=== PATIENT | female | born 1970 | race African-American/Black ===

== ENCOUNTER → 2021-03-29 14:56 | Outpatient (BNVA) | payer OTHER, SELFPAY | PROVIDERS: PCP Internal Medicine; Visit Provider Nurse Practitioner Family | DX: M17.0 Bilateral primary osteoarthritis of knee (principal) | CPT/HCPCS: 99202 ==

== ENCOUNTER 2021-04-20 12:09 | Outpatient (REF) | payer OTHER, SELFPAY ==
--- NOTE | ~2021-04-20 | XR_ITS ---
EXAMINATION: XR KNEE, BILATERAL XR KNEE, RIGHT XR KNEE, LEFT CLINICAL INFORMATION: Pain COMPARISON: None TECHNIQUE: AP standing view of both knees. Lateral and sunrise view of both knees. FINDINGS: Right knee: No fracture or subluxation. Moderate medial compartment joint space narrowing. Remaining compartments are maintained. Small to moderate tricompartmental marginal osteophytes. No joint effusion. The soft tissues are unremarkable. Left knee: No fracture or subluxation. Moderate to severe medial compartment joint space narrowing. Remaining joint spaces are maintained. Mild to moderate tricompartmental marginal osteophytes. No joint effusion. The soft tissues are unremarkable. XR/XR knee standing BI IMPRESSION: Tricompartmental degenerative changes of both knees, greatest at the medial compartments with significant joint space narrowing.
--- NOTE | ~2021-04-20 | XR_ITS ---
EXAMINATION: XR KNEE, BILATERAL XR KNEE, RIGHT XR KNEE, LEFT CLINICAL INFORMATION: Pain COMPARISON: None TECHNIQUE: AP standing view of both knees. Lateral and sunrise view of both knees. FINDINGS: Right knee: No fracture or subluxation. Moderate medial compartment joint space narrowing. Remaining compartments are maintained. Small to moderate tricompartmental marginal osteophytes. No joint effusion. The soft tissues are unremarkable. Left knee: No fracture or subluxation. Moderate to severe medial compartment joint space narrowing. Remaining joint spaces are maintained. Mild to moderate tricompartmental marginal osteophytes. No joint effusion. The soft tissues are unremarkable. XR/XR knee LT 2V IMPRESSION: Tricompartmental degenerative changes of both knees, greatest at the medial compartments with significant joint space narrowing.
--- NOTE | ~2021-04-20 | XR_ITS ---
EXAMINATION: XR KNEE, BILATERAL XR KNEE, RIGHT XR KNEE, LEFT CLINICAL INFORMATION: Pain COMPARISON: None TECHNIQUE: AP standing view of both knees. Lateral and sunrise view of both knees. FINDINGS: Right knee: No fracture or subluxation. Moderate medial compartment joint space narrowing. Remaining compartments are maintained. Small to moderate tricompartmental marginal osteophytes. No joint effusion. The soft tissues are unremarkable. Left knee: No fracture or subluxation. Moderate to severe medial compartment joint space narrowing. Remaining joint spaces are maintained. Mild to moderate tricompartmental marginal osteophytes. No joint effusion. The soft tissues are unremarkable. XR/XR knee RT 2V IMPRESSION: Tricompartmental degenerative changes of both knees, greatest at the medial compartments with significant joint space narrowing.
== END 2021-04-20 12:10 | disposition home or self-care (01) ==
LOC: HO.HOSX 12:09
PROVIDERS: Visit Provider Orthopaedic Surgery
DX: M17.0 Bilateral primary osteoarthritis of knee (principal); M54.16 Radiculopathy, lumbar region
CPT/HCPCS: 20610; 73560; 73565; 99202; J1100

== ENCOUNTER 2021-06-05 14:00 | Outpatient (RCR) | payer OTHER, SELFPAY ==
--- NOTE | 2021-04-24 17:11 | MHC.PT.EP ---
[facility] [place] Office [place] Office [place] Office [address] Kimberly Lowery [address] [phone] F: [phone] F: [phone] F: [phone] F: [phone] Physical Therapy Plan of Care Date of Evaluation: Date of Surgery: NA Diagnosis: B KNEE OA LUMBAR RADICULOPATHY Assessment: Pt IS 50 YO F REFERRED TO PT FROM DR DAVIES WITH B KNEE OA AND LUMBAR RADICULOPATHY. Pt REPORTS CHRONIC KNEE PAIN. RELIEF FROM CORTISONE INJECTIONS. HAS HAD PT IN PAST WITH SOME RELIEF BUT POOR CARRYOVER UPON DC. PRESENTS WITH SIGNIFICANTLY WEAK LES WITH POOR GT PATTERN (NO AD BUT HAS CANE AT HOME) AND C/O PAIN IN R KNEE AND L LE. 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 SHOULD BENEFIT FROM PT TO ADDRESS THESE ISSUES Frequency and Duration: The patient will be seen 2X/WK X 6 WKS Short Term Goals: 1. INCREASED AWARENESS LE CARE 2. I HEP WITH DC EX PLAN 3. 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 DECREASED KNEE/LE PAIN AT LEAST 50% WITH ADLS 2. INCREASED KNEE FLEXION AT LEAST 10 DEGREES B 3. INCREASED LE STRENGTH 1 MM GRADE T/O Treatment Plan: Modalities to reduce pain, spasms and effusion. Manual therapy to restore motion and function. Therapeutic exercise to improve strength and flexibility. Neuromuscular re-education for posture and balance. Therapeutic activities to return to functional activities of daily living. Electronically signed by: ERICA COLLIER PT Please sign and return to therapist. Thank you for your referral.
--- NOTE | 2021-07-10 14:58 | MHC.PT.DC ---
[facility] [place] Office [place] Office [place] Office [address] Kimberly Lowery [address] [phone] F: [phone] F: [phone] F: [phone] F: [phone] Physical Therapy Discharge Report Diagnosis: B KNEE OA LUMBAR RADICULOPATHY Date of Surgery: NA Date of Evaluation: 04/24/21 Date of Discharge: 07/10/21 Treatments to Date: 7 Cancellations to Date: 5 No Shows to Date: 2 Discharge Status: Independent with HEP Patient Elected to Stop Visit Non-compliance Discharge Summary: Pt LAST SEEN ON 06/05/21. PER ASSESSMENT THAT DAY CHALLENGED WITH STANDING THEREX, FATIGUE NOTED' Pt HAS HOME PROGRAM WHICH SHE REPORTS HELPS WHEN SHE DOES THEM BUT ADMITS NOT DOING EXS/STRETCHES REGULARLY. Pt HAS HAD SPORADIC ATTENDANCE TO PT SESSIONS. CANCELLED A VISIT THEN NO SHOWED HER LAST 2 SCHEDULED VISITS. WILL DC AT THIS TIME Electronically signed by: ERICA COLLIER PT Please sign and return to therapist. Thank you for your referral.
== END 2021-07-10 14:58 | disposition home or self-care (01) ==
LOC: HO.PT 14:00
PROVIDERS: PCP Nurse Practitioner Family; Visit Provider Orthopaedic Surgery
DX: M17.0 Bilateral primary osteoarthritis of knee (principal); M54.16 Radiculopathy, lumbar region
CPT/HCPCS: 97110; 97140; 97162; 97530; 97535

== ENCOUNTER → 2021-07-03 13:21 | Outpatient (BNVA) | payer OTHER, SELFPAY | PROVIDERS: PCP Nurse Practitioner Family; Visit Provider Physician Assistant | DX: M17.0 Bilateral primary osteoarthritis of knee (principal) | CPT/HCPCS: 99212 ==

== ENCOUNTER → 2023-01-04 12:44 | Outpatient (BNVA) | payer OTHER, SELFPAY | PROVIDERS: PCP Nurse Practitioner Family; Visit Provider Orthopaedic Surgery | DX: Z13.89 Encounter for screening for other disorder (principal) | CPT/HCPCS: J1100 ==

== ENCOUNTER 2023-12-18 16:12 | Outpatient (REF) | payer OTHER, SELFPAY ==
[2023-12-18 16:42] LABS: MANUAL DIFF FLAG NO
[2023-12-18 17:29] LABS: Basophils Absolute Auto 0.1 X10*3/uL (0.0-0.2); Basophils Percent Auto 0.4 % (0-2); Eosinophils Absolute Auto 0.1 X10*3/uL (0.0-0.4); Eosinophils Percent Auto 1.1 % (0-4); Hematocrit 40.4 % (37.0-47.0); Hemoglobin 13.1 g/dl (12.0-16.0); Imm Gran Abs Auto 0.06 X10*3/uL (0.00-0.03); Imm Gran Pct Auto 0.5 % (0.0-0.4); Lymphocytes Absolute Auto 2.7 X10*3/uL (1.2-4.9); Lymphocytes Percent Auto 22.1 % (20-40); Mean Corpuscular HGB Conc 32.4 g/dl (31.0-35.0); Mean Corpuscular Hemoglobin 24.9 pg (27.0-33.0); Mean Corpuscular Volume 76.8 fL (80.0-98.0); Mean Platelet Volume 10.9 fL (9.4-12.3); Monocytes Absolute Auto 0.4 X10*3/uL (0.1-1.2); Monocytes Percent Auto 3.3 % (2-11); Neutrophils Absolute Auto 8.7 x10*3/uL (2.0-8.3); Neutrophils Percent Auto 72.6 % (45-73); Platelet Count 316 X10*3/uL (160-400); Red Blood Count 5.26 X10*6/uL (4.20-5.50)
[2023-12-18 17:36] LABS: Anion Gap 11 (12-20); Blood Urea Nitrogen 10 mg/dL (9-16); Carbon Dioxide 26 mmol/L (22-29); Chloride 105 mmol/L (96-108); Estimated Glomerular Filt Rate 58; Glucose Random 149 mg/dL (60-115); Potassium 3.4 mmol/L (3.3-5.1); Sodium 139 mmol/L (135-145)
== END 2023-12-18 16:13 | disposition home or self-care (01) ==
LOC: HO.LAB 16:12
PROVIDERS: PCP Registered Nurse; Visit Provider Internal Medicine Hypertension Specialist
DX: E11.9 Type 2 diabetes mellitus without complications (principal)
CPT/HCPCS: 36415; 80048; 85025

== ENCOUNTER 2023-12-26 11:26 | Outpatient (AMB) | payer OTHER, SELFPAY ==
--- NOTE | 2023-12-26 11:47 | HO.NEPHOV ---
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 She is trying to loose weight. She is on Trulicity. Her BP is well controlled on current medication regimen. She does not have any chest pain, SOB, nausea, vomiting, hematuria, edema or orthostatic symptoms. She does not take excess NSAID's and tries to keep up with good hydration. She denied any retinopathy or proteinuria. She had no new active complaints at the time of this office visit. [facility] Medical History (Updated 12/26/23 @ 11:57 by Tamika Corea MA) Hypertension Surgical History (Updated 12/26/23 @ 11:57 by Tamika Corea MA) History of cholecystectomy Family History (Updated 12/26/23 @ 11:56 by Tamika Corea MA) Maternal Grandmother Diabetes Social History (Updated 12/26/23 @ 11:55 by Tamika Corea MA) Alcohol intake: current Patient Tobacco Use Status: Former Tobacco user Review of Systems Const All systems reviewed & are unremarkable except as noted in HPI and below Physical Exam Vital Signs: Last Vital Signs Pulse 50 12/26/23 11:49 BP 134/90 H 12/26/23 11:49 Pulse Ox 97 12/26/23 11:49 Oxygen Delivery Method Room Air 12/26/23 11:49 BMI result Body Mass Index 48.0 Const General: comfortable and no acute distress Orientation/consciousness: patient oriented x3 HEENT Head: Yes normocephalic Mouth: Normal oral and palatal mucosa present Eyes EOM: EOMs intact bilaterally Neck Neck: Yes supple Resp Auscultation: clear to auscultation bilaterally Cardio Jugular venous distension: no JVD Rate: regular rate GI Palpation (GI): Soft to palpation Auscultation: normal bowel sounds General: Yes no CVA tenderness Back/Spine/Pelvis Back: no CVA tenderness Skin General skin exam: no rashes or lesions noted Neuro General: patient oriented x3 and moves all extremities Extrem General: Yes no pedal edema Results Reviewed Nephrology Results: Hgb 13.1 g/dl (12.0-16.0) 12/18/23 WBC 12.0 X10*3/uL (4.8-10.8) H 12/18/23 Plt Count 316 X10*3/uL (160-400) 12/18/23 Sodium 139 mmol/L (135-145) 12/18/23 Potassium 3.4 mmol/L (3.3-5.1) 12/18/23 Chloride 105 mmol/L (96-108) 12/18/23 Carbon Dioxide 26 mmol/L (22-29) 12/18/23 BUN 10 mg/dL (9-16) 12/18/23 Creatinine 0.99 mg/dL (0.5-1.4) 12/18/23 Calcium 10.0 mg/dL (8.4-10.2) 12/18/23 Assessment & Plan Assessment & Plan (1) Hypertension: Code(s): I10 - Essential (primary) hypertension Category: Medical Qualifiers: Hypertension type: primary hypertension Qualified Code(s): I10 - Essential (primary) hypertension Plan Blood pressure needs to be kept at goal No H/O LVH/retinopathy/proteinuria No H/O renal dysfunction; No orthostasis Needs continued life style modification/weight loss Likely a candidate for low dose ACEI Needs to maintain good hydration/minimal NSAID's No medication changes today; F/U labs ordered Answered all questions; F/U given Orders: Orders Creatinine 6 Months I10 - Essential (primary) hypertension Blood Urea Nitrogen 6 Months I10 - Essential (primary) hypertension Protein Creatinine Ratio, Ur 6 Months I10 - Essential (primary) hypertension Electrolytes 6 Months I10 - Essential (primary) hypertension Coding Level of Care Code Est Pt Level 4 (12890) Diagnoses Primary hypertension I10 Hypertension type: primary hypertension
[2023-12-26 11:49] VITALS: BP 134/90; PULSE 50; O2SAT 97; BMI 48.0
== END 2023-12-26 12:07 | disposition home or self-care (01) ==
PROVIDERS: PCP Nurse Practitioner Family; Visit Provider Internal Medicine Nephrology
DX: I10 Essential (primary) hypertension (principal)
CPT/HCPCS: 99214

== ENCOUNTER → 2023-12-26 11:26 | Outpatient (BNVA) | payer OTHER, SELFPAY | PROVIDERS: PCP Nurse Practitioner Family; Visit Provider Internal Medicine Nephrology | DX: I10 Essential (primary) hypertension (principal); Z79.899 Other long term (current) drug therapy | CPT/HCPCS: 99212 ==

== ENCOUNTER 2024-01-27 12:52 | Outpatient (REF) | payer OTHER, SELFPAY | END 2024-01-27 12:53 | disposition home or self-care (01) | LOC: HO.HOSX 12:52 | PROVIDERS: Visit Provider Physician Assistant | DX: M25.512 Pain in left shoulder (principal) | CPT/HCPCS: 73030; 99212 ==

== ENCOUNTER 2024-01-27 13:23 | Outpatient (AMB) | payer OTHER, SELFPAY ==
--- NOTE | 2024-01-27 13:47 | MHC.OFFVIS ---
Vital Signs 01/27/24 13:54 Height 5 ft 3 in Weight 271 lb BMI 48.0 Intake Visit Reasons: New problem - Left shoulder pain, no inj Intake Note: Delores a 53 year old female who presents today for an evaluation of left shoulder pain. Patient reports her pain has been present for about a month. Her pain started in the posterior aspect of shoulder and radiates down her arm to her wrist. States soreness in her bicep. Unable to sleep on her left side. No numbness or tingling. Denies injury. No previous tx. Finds very little relief with lidocaine patches. Allergies seafood Allergy (Verified 01/27/24 13:56) Anaphylaxis tree nut Allergy (Verified 01/27/24 13:56) Anaphylaxis banana Adverse Reaction (Verified 01/27/24 13:56) Vomiting Seasonal Allergies Adverse Reaction (Verified 01/27/24 13:56) Sneezing sergio stings Allergy (Uncoded 01/27/24 13:56) Swelling Medication List - Last Reconciled 01/27/24 by Bonilla Belle PA-C cetirizine 10 mg PO DAILY clotrimazole 1% 1 appl topical QAM AND QHS dulaglutide (Trulicity) 0.75 mg subcut QWEEK lidocaine 5% 1 patch topical DAILY PRN lorazepam 1 mg PO DAILY PRN montelukast 10 mg PO DAILY pantoprazole 40 mg PO DAILY spironolactone 25 mg PO DAILY HPI HPI New problem - Left shoulder pain, no inj: Details: 53-year-old female presents to the office today for left shoulder pain. She denies injury. She states she has been having pain for approximately the 1 month. She states she had some tension along the trapezium muscle, the pain goes down her arm. 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 Tenderness over the bicipital groove and along deltoid region of the shoulder. FF to 175, ER to 90, IR to S1. 5/5 RTC strength, negative moreau, cross body abduction. NVI. Results Reviewed Results Reviewed: X-rays of the left shoulder obtained in the office today show well-preserved glenohumeral joint with osteophyte formation along the acromion Assessment & Plan Assessment & Plan (1) Left shoulder tendonitis: Code(s): M77.8 - Other enthesopathies, not elsewhere classified Category: Medical Plan: Discussed options today which include physical therapy, steroid injection and anti-inflammatories. She would like to hold off on cortisone injections at this time. A referral for physical therapy was placed range of motion, rotator cuff and periscapular stabilization. Celebrex prescription was sent to the pharmacy to take twice a day for 2 weeks and occasionally thereafter. She will see me back if symptoms persist or worsen to discuss cortisone injection otherwise follow-up as needed. Orders: Orders PT Evaluation and Treatment Today M77.8 - Other enthesopathies, not elsewhere classified XR shoulder LT min 2V Today M25.512 - Pain in left shoulder Medications: New celecoxib (Celebrex) 200 mg PO BID 60 caps 3RF 30 days Coding Level of Care Code Est Pt Level 3 (24783) Complex EM visit Add On G2211 Diagnoses Left shoulder tendonitis M77.8
[2024-01-27 13:54] VITALS: BMI 48.0
== END 2024-01-27 14:19 | disposition home or self-care (01) ==
PROVIDERS: PCP Nurse Practitioner Family; Visit Provider Physician Assistant
DX: M77.8 Other enthesopathies, not elsewhere classified (principal)
CPT/HCPCS: 99213; G2211

== ENCOUNTER 2024-02-24 11:08 | Outpatient (AMB) | payer OTHER, SELFPAY ==
--- NOTE | 2024-02-24 11:33 | A.OFFVIS_ITS ---
Vital Signs 02/24/24 11:55 Height 5 ft 3 in Weight 271 lb BMI 48.0 Intake Visit Reasons: OV-Tejas knee injections, last cortisone inj 04/20/21 Intake Note: Delores is a 50 year old female who presents today for a follow up of her bilateral knee OA. Last injection 04/20/21. Patient reports last injection did not provide her with relief. She would like to repeat injections today. States her pain is located at the anterior and medial aspect of knees. Finds some relief with topical patches. Allergies seafood Allergy (Verified 02/24/24 11:36) Anaphylaxis tree nut Allergy (Verified 02/24/24 11:36) Anaphylaxis banana Adverse Reaction (Verified 02/24/24 11:36) Vomiting Seasonal Allergies Adverse Reaction (Verified 02/24/24 11:36) Sneezing sergio stings Allergy (Uncoded 02/24/24 11:36) Swelling Medication List - Last Reconciled 02/24/24 by Bonilla Belle PA-C celecoxib (Celebrex) 200 mg PO BID 30 days cetirizine 10 mg PO DAILY clotrimazole 1% 1 appl topical QAM AND QHS dulaglutide (Trulicity) 0.75 mg subcut QWEEK lidocaine 5% 1 patch topical DAILY PRN lorazepam 1 mg PO DAILY PRN montelukast 10 mg PO DAILY pantoprazole 40 mg PO DAILY spironolactone 25 mg PO DAILY HPI HPI OV-Tejas knee injections, last cortisone inj 04/20/21: Details: 53-year-old female who returns to the office today for a follow-up of bilateral knee pain. She continues to have pain at the anterior aspect and medial aspect of her bilateral knees. She finds mild relief with topical patches. She had her last injection on 04/20/21 which did not provide her any relief. She would like to repeat the injections. 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 Tenderness along the medial and lateral joint line. Full ROM with crepitus. Negative Finesse?s. No ligamentous laxity. NVI. Office Procedures AMB Joint Injection/Aspiration Joint Injection/Aspiration Primary Site: right knee Secondary Site: left knee Prep: site was prepped using aseptic technique, ethochloride spray was applied and injection warnings given Injected: 40 mg of, DepoMedrol, with 8 mL of, 1% plain lidocaine and in the joint Approach Used: anterolateral Procedure: The patient tolerated the procedure well and there was some relief with the local anesthesia Coding 48008 - Glenohumeral/Tronchanteric Bursa/Intraarticular Procedure code (CPT) selection complete Results Reviewed Results Reviewed: Xrays were obtained in the office today and personally reviewed by of [facility] knee show moderate to severe oa Assessment & Plan Assessment & Plan (1) Osteoarthritis of knees, bilateral: Code(s): M17.0 - Bilateral primary osteoarthritis of knee Category: Medical Plan We discussed options today, which include steroid injection. The patient did consent to move forward with the bilateral knee injection, which was tolerated well. I recommended rest, ice, and elevation and OTC anti-inflammatories as needed for discomfort. If symptoms persist or worsens over the next 6-8 weeks, patient will contact the office, otherwise follow-up as needed. Orders: Orders XR knee RT 3V Today M17.11 - Unilateral primary osteoarthritis, right knee XR knee LT 3V Today M25.562 - Pain in left knee Patient Instructions: Scribed for Bonilla Belle PA-C, by [facility], on 02/24/2024 at 11:45 AM EST.? I, Bonilla Belle PA-C, have personally reviewed and agree with the information entered by the scribe. Coding Level of Care Code Est Pt Level 3 (79414) Complex EM visit Add On G2211 Diagnoses Osteoarthritis of knees, bilateral M17.0 CPT Codes Coding - Joint 7: 19454 - Glenohumeral/Tronchanteric Bursa/Intraarticular ([id number])
[2024-02-24 11:55] VITALS: BMI 48.0
== END 2024-02-24 12:52 | disposition home or self-care (01) ==
PROVIDERS: PCP Nurse Practitioner Family; Visit Provider Physician Assistant
DX: M17.0 Bilateral primary osteoarthritis of knee (principal)
CPT/HCPCS: 20610; 99213

== ENCOUNTER 2024-02-24 11:08 | Outpatient (REF) | payer OTHER, SELFPAY ==
--- NOTE | ~2024-02-24 | XR_ITS ---
EXAMINATION: XR RIGHT KNEE CLINICAL INFORMATION: Unilateral primary osteoarthritis, right knee M17.11. COMPARISON: XR Right knee 04/20/2021 TECHNIQUE: Two views of the right knee. FINDINGS: No fractures seen. No evidence for dislocation. There is severe narrowing in the medial joint space compartment. Degenerative spurring of femoral condyles, tibial plateau, and patella. No appreciable osteochondral lesions. No significant joint effusion. XR/XR knee RT 3V IMPRESSION: No acute process. Degenerative changes. Electronically signed by: Nahum Villa MD 04/08/2024 03:03 PM DANNA SUAREZ
--- NOTE | ~2024-02-24 | XR_ITS ---
EXAMINATION: XR KNEE LEFT CLINICAL INFORMATION: Pain in left knee M25.562. . COMPARISON: XR Left knee 04/20/2021 TECHNIQUE: Three views of the left knee. One view of the right knee FINDINGS: Severe degenerative changes of the medial compartments bilaterally with osteophyte formation and subchondral sclerosis. Mild left patellofemoral degenerative changes. No left knee joint effusion. XR/XR knee LT 3V IMPRESSION: Severe degenerative changes of the medial compartments bilaterally. Electronically signed by: Johnny Chaparro MD 03/03/2024 01:32 PM EST
== END 2024-02-24 11:09 | disposition home or self-care (01) ==
LOC: HO.HOSX 11:08
PROVIDERS: PCP Nurse Practitioner Family; Visit Provider Physician Assistant
DX: M25.562 Pain in left knee (principal); M17.0 Bilateral primary osteoarthritis of knee
CPT/HCPCS: 20610; 73562; 99212; J1010; J2003

== ENCOUNTER 2024-04-06 12:00 | Outpatient (RCR) | payer OTHER, SELFPAY ==
--- NOTE | 2024-02-24 12:46 | MHC.PT.EP ---
[facility] [place] Office [place] Office [place] Office [address] Lowery [address] [phone] F: [phone] F: [phone] F: [phone] F: [phone] Physical Therapy Plan of Care Date of Evaluation: 02/24/24 Date of Surgery: Diagnosis: Other enthesopathies, not elsewhere classified Left shoulder tendonitis Assessment: Pt is a pleasant 53yo F who presents to PT with left shoulder pain for ~3 months without clear RUEL. Pt presents to PT with current impairments in pain, decreased ROM, decreased strength, soft tissue restrictions, and impaired posture. She is limited functionally by movement and functional use of left UE. She is a good candidate for skilled PT in order to address current impairments to facilitate return to PLOF. 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 Manual therapy to restore motion and function. Therapeutic exercise to improve strength and flexibility. Neuromuscular re-education for posture and balance. Therapeutic activities to return to functional activities of daily living. Electronically signed by: Stephanie Salas, PT, DPT Please sign and return to therapist. Thank you for your referral.
--- NOTE | 2024-04-06 13:53 | MHC.PT.DC ---
[facility] [place] Office [place] Office [place] Office [address] Lowery [address] [phone] F: [phone] F: [phone] F: [phone] F: [phone] Physical Therapy Discharge Report Diagnosis: Other enthesopathies, not elsewhere classified Left shoulder tendonitis Date of Surgery: Date of Evaluation: 02/24/24 Date of Discharge: 04/06/24 Treatments to Date: 7 Cancellations to Date: No Shows to Date: 2 Discharge Status: Achieved Goals Improved Function Independent with HEP Discharge Summary: Pt has made good progress since SOC. She has demonstrated improvements in ROM and strength. She has also improved her postural awareness throughout the day. Patient met short and fdc goals and will be discharged from PT at this time. Patient reviewed HEP with handout, patient had no questions regarding HEP. Electronically signed by: Stephanie Salas, PT, DPT Please sign and return to therapist. Thank you for your referral.
== END 2024-04-06 13:53 | disposition home or self-care (01) ==
LOC: HO.PT 12:00
PROVIDERS: PCP Nurse Practitioner Family; Visit Provider Physician Assistant
DX: M77.8 Other enthesopathies, not elsewhere classified (principal)
CPT/HCPCS: 97110; 97161

== ENCOUNTER 2024-07-01 14:02 | Outpatient (AMB) | payer OTHER, SELFPAY ==
--- NOTE | 2024-07-01 14:06 | HO.NEPHOV_ITS ---
Vital Signs 07/01/24 14:11 Height 5 ft 3 in Weight 267 lb 6 oz BMI 47.4 BP 124/80 Blood Pressure Location Rt brachial Position Sitting Intake Visit Reasons: 6 MO FU/ Carla office requested Manager Pharmaceutical Required: No Accompanied by: Self / Same As Patient Allergies seafood Allergy (Verified 07/01/24 14:11) Anaphylaxis tree nut Allergy (Verified 07/01/24 14:11) Anaphylaxis banana Adverse Reaction (Verified 07/01/24 14:11) Vomiting Seasonal Allergies Adverse Reaction (Verified 07/01/24 14:11) Sneezing segrio stings Allergy (Uncoded 02/24/24 11:36) Swelling HPI Comments Details: Delores was seen in follow up for hypertension. She is trying to loose weight. She is on Trulicity. She had SOBE and was found to be AFib. 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 She has been initiated on Elquis. Her TFT's are pending. Her BP is well controlled on current medication regimen. She does not have any chest pain, SOB, nausea, vomiting, hematuria, edema or orthostatic symptoms. She does not take excess NSAID's and tries to keep up with good hydration. She denied any retinopathy or proteinuria. She had no new active complaints at the time of this office visit. 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, Review of Systems Const All systems reviewed & are unremarkable except as noted in HPI and below Physical Exam Vital Signs: Last Vital Signs BP 124/80 07/01/24 14:11 BMI result Body Mass Index 47.4 Const General: comfortable and no acute distress Orientation/consciousness: patient oriented x3 HEENT Head: Yes normocephalic Mouth: Normal oral and palatal mucosa present Eyes EOM: EOMs intact bilaterally Neck Neck: Yes supple Resp Auscultation: clear to auscultation bilaterally Cardio Jugular venous distension: no JVD Rate: regular rate GI Palpation (GI): Soft to palpation Auscultation: normal bowel sounds General: Yes no CVA tenderness Back/Spine/Pelvis Back: no CVA tenderness Skin General skin exam: no rashes or lesions noted Neuro General: patient oriented x3 and moves all extremities Extrem General: Yes no pedal edema Results Reviewed Nephrology Results: Hgb 13.1 g/dl (12.0-16.0) 12/18/23 WBC 12.0 X10*3/uL (4.8-10.8) H 12/18/23 Plt Count 316 X10*3/uL (160-400) 12/18/23 Sodium 139 mmol/L (135-145) 12/18/23 Potassium 3.4 mmol/L (3.3-5.1) 12/18/23 Chloride 105 mmol/L (96-108) 12/18/23 Carbon Dioxide 26 mmol/L (22-29) 12/18/23 BUN 10 mg/dL (9-16) 12/18/23 Creatinine 0.99 mg/dL (0.5-1.4) 12/18/23 Calcium 10.0 mg/dL (8.4-10.2) 12/18/23 Assessment & Plan Assessment & Plan (1) Hypertension: Code(s): I10 - Essential (primary) hypertension Category: Medical Qualifiers: Hypertension type: primary hypertension Qualified Code(s): I10 - Essential (primary) hypertension Plan Blood pressure needs to be kept at goal No H/O LVH/retinopathy/proteinuria No H/O renal dysfunction; No orthostasis Needs continued life style modification/weight loss Likely a candidate for low dose ACEI- Had ECHO Needs to maintain good hydration/minimal NSAID's No medication changes today; Has a cards appointment Answered all questions; F/U given Orders: Orders Creatinine 6 Months I10 - Essential (primary) hypertension Blood Urea Nitrogen 6 Months I10 - Essential (primary) hypertension Electrolytes 6 Months I10 - Essential (primary) hypertension Protein Creatinine Ratio, Ur 6 Months I10 - Essential (primary) hypertension Coding Level of Care Code Est Pt Level 4 (66359) Diagnoses Primary hypertension I10 Hypertension type: primary hypertension
[2024-07-01 14:11] VITALS: BP 124/80; BMI 47.4
--- OUTSIDE RECORDS SUMMARY | 2024-07-01 16:52 | XMS_ITS | Encounter Summary ---
Author Organization [facility] Address [address] [place] [id number] Care Team Providers Care Grinding Wheel Dresser Name Role Phone Telma Foster APRN Primary Care Provider [phone] Pcp, No Primary Care Provider Clarisse Parker APRN Primary Care Provider [phone] Encounter Details Date Type Department Care Team (Late st Contact Info) Description 07/14/2018 Scanned Document [address] [place] [address] Provider, Generic Social History Tobacco Use Types Packs/Day Years Used Date Smoking Tobacco: Former Smokeless Tobacco: Former Alcohol Use Standard Drinks/Week Comments Yes 0 (1 standard drink = 0.6 oz pur e alcohol) Comments No Sex and Gender Information Value Date Recorded Sex Assigned at Not on file Legal Sex Female 11:22 AM EDT Gender Identity Not on file Sexual Orientation Not on file documented as of this encounter Plan of Treatment Not on file documented as of this encounter Visit Diagnoses Not on filedocumented in this encounter Care Teams Grinding Wheel Dresser Relationship Specialty Start Date End Date Telma Foster APRN [address] [place], [place] [address] PCP - General Family Medicine 08/14/17 12/21/18 Pcp, No PCP - General General Medicine 12/22/18 03/19/22 Clarisse Downey APRN [address] [place] [address] [place] [address] PCP - General 03/20/22 06/18/22 documented as of this encounter
--- OUTSIDE RECORDS SUMMARY | 2024-07-01 16:52 | XMS_ITS | Encounter Summary ---
Author Organization [facility] Address [address] [place] [id number] Care Team Providers Care Machinery Engineer Name Role Phone Pcp, [place] Primary Care Provider Clarisse Parker APRN Primary Care Provider [phone] Reason for Visit * Reason Comments Medication Refill Encounter Details Date Type Department Care Team (Late st Contact Info) Description 01/15/2019 Refill [facility] [address] [facility] [address] [place] [address] Telma Foster APRN [address] [facility] [address] [place] [address] Acute left-sided low back pain without sciatica Social History Tobacco Use Types Packs/Day Years [...] documented as of this encounter Visit Diagnoses Diagnosis Acute left-sided low back pain without sciatica documented in this encounter Care Teams Machinery Engineer Relationship Specialty Start Date End Date Pcp, [place] PCP - General General Medicine 12/22/18 03/19/22 Clarisse Downey APRN [address] [place] [address] [place], [place] [id number] PCP - General 03/20/22 06/18/22 documented as of this encounter
--- OUTSIDE RECORDS SUMMARY | 2024-07-01 16:52 | XMS_ITS | Clinical Summary ---
Author Organization [facility] [address] [facility] Address [address] [place] [address] Phone Care Team Providers Care Finished Cloth Checker Name Role Phone Kareen Caldwell MD Primary Care Provider Allergies Active Allergy Reactions Criticality Noted Date Comments Aspirin 06/11/2024 Banana 06/17/2019 vomiting Bee Venom Protein (Honey Bee) Swelling 01/26/2019 Latex 08/15/2023 Other Reaction(s): Rash/Dermatitis Nut - Unspecified High 12/17/2018 Other Reaction(s): Hives/Urticaria Tree nuts: Almonds-throat swelling. Pistachios-throat swelling Walnuts-throat swelling Other 12/17/2018 Seafood. Reactions as a child to fish and shellfish. Contact reaction with shrimp as an adult. Seasonal allergies- Other Reaction(s): Runny Nose/Rhinitis Sneezing Rice High 12/17/2018 Throat swelling and hives. Medications montelukast (SINGULAIR) 10 mg tablet Take 1 Tablet by mouth at bedtime. Active cetirizine (ZyrTEC) 10 mg tablet Take 1 tablet (10 mg total) by mouth 1 (one) time each day. Active blood sugar diagnostic (FreeStyle Lite Strips) test strip USE TO TEST BLOOD SUGAR ONCE DAILY IN THE MORNING Active EPINEPHrine (EpiPen 2-Bob) 0.3 mg/0.3 mL injection INJECT DIRECTED NEEDED FOR ANAPHYLAXIS 10/19/2 020 Active Trulicity 0.75 mg/0.5 mL pen injector injectionIndica tions:Diabetes mellitus with no complication ([facility] V24, [facility] V28) INJECT 0.75 MG SUBCUTANEOUSLY ONE TIME PER WEEK 6 mL 1 024 Active acetaminophen (TYLENOL 8 HOUR) 650 mg 8 hr tablet Take 1 tablet (650 mg total) by mouth every 8 (eight) hours if needed for mild pain. Do not crush, chew, or split. Active spironolactone (ALDACTONE) 50 mg tablet TAKE 1 TABLET BY MOUTH 1 TIME EACH DAY. 90 tablet 025 Active buPROPion (WELLBUTRIN) 75 mg tablet TAKE 1 TABLET BY MOUTH TWICE A DAY 2ND DOSE NO LATER THAN 2PM 025 Active pantoprazole (PROTONIX) 40 mg EC tabletIndicatio ns:Eosinophilic esophagitis due to food,GERD (gastroesophage al reflux disease) Take 1 tablet (40 mg total) by mouth 1 (one) time each day. 90 tablet 3 025 Active clotrimazole (LOTRIMIN) 1 % cream APPLY 2 TIMES DAILY ON AFFECTED AREA UNTIL RASH CLEARES 30 g 2 025 Active metoprolol tartrate (LOPRESSOR) 25 mg tabletIndicatio ns:Essential hypertension TAKE 1 TABLET BY MOUTH TWICE A DAY 90 tablet 1 025 Active apixaban (Eliquis) 5 mg tabletIndicatio ns:Atrial fibrillation, unspecified type ([facility] V24, [facility] V28) Take 1 tablet (5 mg total) by mouth 2 (two) times a day. 180 tablet 1 025 Active UNABLE TO FIND Menthol, Topical Analgesic, (BIOFREEZE EX), Apply topically as needed. 2024 Discontinued(T herapy completed) clotrimazole (LOTRIMIN) 1 % cream Apply 2 times daily on affected area until rash cleares 024 2024 Discontinued LORazepam (ATIVAN) 1 mg tablet TAKE 1 TABLET BY MOUTH DAILY NEEDED FOR ANXIETY (RELATED TO DENTAL PROCEDURES) 024 2024 Discontinued(T herapy completed) lidocaine (LIDODERM) 5 % patch as needed. 022 2024 Discontinued(T herapy completed) UNABLE TO FIND Take by mouth. Calcium Carbonate-Vitamin D (CALCIUM 600/VITAMIN D OR) 2024 Discontinued(T herapy completed) pantoprazole (PROTONIX) 40 mg EC tabletIndicatio ns:GERD (gastroesophage al reflux disease) TAKE 1 TABLET BY MOUTH EVERY DAY 90 tablet 3 025 2024 Discontinued(R eorder) metoprolol tartrate (LOPRESSOR) 25 mg tabletIndicatio ns:Essential hypertension Take 1 tablet (25 mg total) by mouth 2 (two) times a day. 60 each 1 025 2024 Discontinued Hospital, Clinic, or Other Facility Administered Medication Ordered Dose Route Frequency Start Date End Date Status perflutren lipid microsphere (DEFINITY) 1.3 mL in sodium chloride 0.9% 8.7 mL injection 10 mL IV Once in imaging 06/30/2024 06/30/2024 End ed Active Problems Problem Noted Date Diagnosed Date Morbid obesity with BMI of 4 5.0-49.9, adult ([facility] V24, [facility] V28) 02/20/2024 Stage 3a chronic kidney disease ([facility] V24, [facility] V28) 06/26/2021 Type 2 diabetes, diet controlled ([facility] V24, [facility] V28) 06/26/2021 Overview (02/20/2024): 05/03 - HgbA1C 7% Hyperlipidemia 11/01/2020 SVT (supraventricular tachycardia) ([facility] V24) 11/01/2020 Overview (02/20/2024): Only 1 episode due to multiple triggers-albuterol inhaler, excessive coffee in 2014. Seen by cardiology No concerns. Anxiety due to invasive procedure 10/05/2020 Overview (02/20/2024): Last Assessment & Plan: Prescription for 10 tablets of 1 mg Xanax is sent to the pharmacy-she has multiple root canal and tooth extractions scheduled in the next 2 to 3 weeks. She also takes preprocedural antibiotics, this is prescribed by her dentist. Fungal rash of trunk 10/05/2020 Overview (02/20/2024): Last Assessment & Plan: Continue with topical antifungals as needed. Refill sent to the pharmacy Osteoarthritis of spine with radiculopathy, lumb ar region 09/21/2019 Obstructive sleep apnea 05/04/2019 Overview (02/20/2024): [facility] Polysomnogram: Date 04/28/2019; Wt 260#; BMI 46; SE 85%; SM 88%; REM 29%; RDI 6 (AHI 5), REM (RDI 14 - AHI 12), Central apneas 0; Obstructive apneas 9; Mixed apneas 0; hypopneas 24; RERAs 4; average oxygen saturation 93% (lowest 74% - without saturations <88% for 5% or more of study); PLMs 0. - Obstructive Sleep Apnea - mild; mostly hypopneas and obstructive apneas; without sleep related hypoventilation by 2019 polysomnogram. Last Assessment & Plan: She is not interested in using CPAP - Negative health outcomes from untreated sleep apnea were reviewed: heart attack, abnormal heart rhythms, hypertension, diabetes etc. Diverticulosis 01/26/2019 Eosinophilic esophagitis 01/26/2019 GERD (gastroesophageal reflux disease) 9 Assessment & Plan (06/11/2024 9:37 AM EDT): Patient doing well on her current regimen. She has rare breakthrough symptoms if she remains on her medications. She will continue this regimen and follow-up in 1 years time. Orders: pantoprazole (PROTONIX) 40 mg EC tablet; Take 1 tablet (40 mg total) by mouth 1 (one) time each day. Vitamin D deficiency 01/26/2019 Hyperlipidemia associated wi th type 2 diabetes mellitus ([facility] V24, [facility] V28) 12/15/2018 Seasonal allergies 11/28/2018 Arthritis of both knees 11/26/2018 Overview (02/20/2024): Last Assessment & Plan: Reviewed automotive service consultant note, she is getting knee injections-her pain improved. Essential hypertension 11/26/2018 (sickle cell trait) ([facility] V24) 10/26/2014 Asthma 10/26/2014 Encounters Date Type Department Care Team Description 06/30/2024 2:30 PM EDT Ancillary Procedure [facility] [address] [place] [phone] Type 2 diabetes mellitus with other diabetic kidney complication, without long-term current use of insulin ([facility] V24, [facility] V28); Essential hypertension; Dyspnea on exertion; Former smoker 06/30/2024 Telephone [facility] [address] [facility] [address] [place] [address] Tootie Fields NP 06/22/2024 8:30 AM EDT Office Visit Adult Medicine [facility] [address] [place] [address] Kareen Caldwell MD Dyspnea on exertion (Primary Dx); New onset a-fib ([facility] V24, [facility] V28); Type 2 diabetes mellitus with other diabetic kidney complication, without long-term current use of insulin ([facility] V24, [facility] V28); Essential hypertension; Former smoker; Obesity, Class III, BMI 40-49.9 (morbid obesity); MARYANN (obstructive sleep apnea) 06/11/2024 9:00 AM EDT Office Visit Gastroenterology - [address] [facility] [address] [place] [phone] Shannon Israel MD Gastroesophageal reflux disease without esophagitis (Primary Dx); Eosinophilic esophagitis due to food; GERD (gastroesophageal reflux disease) 05/20/2024 Telephone Adult Medicine [facility] [address] [place] [address] Kareen Caldwell MD Forms/questionnaires ([facility] Medical Certification) from Last 3 Months Immunizations Name Administration Dates Next Due Influenza Quadravalent, MDCK , 0.5ml, preservative free (Flucelvax) 6mo and older 12/27/2020 Pneumococcal conjugate 13 va lent (Prevnar 13, PCV13) 2mo and older 07/06/2014 Td Tetanus diptheria (Tdvax) 7yo and older 02/16 Tdap Tetanus diptheria acell ular pertussis (Boostrix; Adacel) 7yo and older 04/29/2007 Surgical History Surgery Date Site/Laterality Comments CHOLECYSTECTOMY PROCEDURE: HISTORICAL CHOLECYSTECTOMY ANKLE SURGERY Right PROCEDURE: HISTORICAL ANKLE SURGERY SALPINGOOPHORECTOMY PROCEDURE: ME LAPAROSCOPY W/RMVL ADNEXAL STRUCTURES; COMMENT: Unilateral UPPER GASTROINTESTINAL ENDOSCOPY 07/26/2022 35 eos/hpf OTHER SURGICAL HISTORY 2020 PROCEDURE: ME PRTL THYROID LOBECTOMY UNI W/WO ISTHMUSECTOMY COLONOSCOPY 07/26/2022 nl- tics, hemorrhoids VIRTUAL COLONSCOPY (DIAG.) 12/22/2014 tics, hemorrhoids, HP x 1, nl colonc bx ESOPHAGOGASTRODUODENOSCOPY 12/22/2014 mild chronic duodenitis. no H. pylori, 10 eos/hpf ESOPHAGOGASTRODUODENOSCOPY 03/21/2016 all nl esophagus bx x 3 Medical History Medical History Date Comments Essential hypertension DX:Essent ial hypertension DM (diabetes mellitus), type 2 with renal complications ([facility] V24, [facility] V28) 12/15/2018 DX:DM (diabetes mellitus), t ype 2 with renal complications ([facility]) (sickle cell trait) ([facility] V24) 01/26/2019 DX: (sickle cell trait) ([facility]) Eosinophilic esophagitis 01/26/2019 DX:Eosi nophilic esophagitis GERD (gastroesophageal reflux disease) 9 DX:GERD (gastroesophageal reflux disease) Nephrolithiasis 01/26/2019 DX:Nephrolithias is Asthma 01/26/2019 DX:Asthma Morbid obesity with BMI of 4 5.0-49.9, adult ([facility] V24, [facility] V28) 01/26/2019 DX:Morbid obesity wit h BMI of 45.0-49.9, adult ([facility]) Vitamin D deficiency 01/26/2019 DX:Vitamin D deficiency Diverticulosis 01/26/2019 DX:Diverticulosi s History of torn meniscus of right knee 11/26/2018 DX:History of torn meniscus of right knee Hyperlipidemia associated wi th type 2 diabetes mellitus ([facility] V24, [facility] V28) 12/15/2018 DX:Hyperlipidemia associated with type 2 diabetes mellitus (HCC) Seasonal allergies 11/28/2018 DX:Seasonal a llergies CKD (chronic kidney disease) stage 3, GFR 30-59 ml/min ([facility] V24, [facility] V28) 12/15/2018 DX:CKD (chronic kidney disea se) stage 3, GFR 30-59 ml/min ([facility]) Arthritis of both knees 11/26/2018 DX:Arthr itis of both knees Multiple food allergies 12/17/2018 DX:Multi ple food allergies; COMMENT: Seafood, Tree Nuts, Rice Snoring 01/06/2019 DX:Snoring; COMM ENT: 12/2018 Home Sleep Study did not reveal sleep apnea or nocturnal hypoxia. DM (diabetes mellitus), type 2 with renal complications ([facility] V24, [facility] V28) 12/15/2018 DX:DM (diabetes mellitus), t ype 2 with renal complications ([facility]) Nephrolithiasis 01/26/2019 DX:Nephrolithias is Family History Medical History Relation Name Comments Alcohol abuse Father seafood allerg y Breast cancer Mother Colon cancer Neg Hx Relation Name Status Comments Father Mother Social History Tobacco Use Types Packs/Day Years Used Date Smoking Tobacco: Former Cigarettes Q uit: 03/11/2021 Smokeless Tobacco: Never Tobacco Cessation:Counseling Given: Not Answered Alcohol Use Standard Drinks/Week Comments Yes 0 (1 standard drink = 0.6 oz pur e alcohol) Housing Instability Answer Date Recorde d Are you worried that in the next 2 months you may not have stable housing? No 06/15/2024 Food Access & Nutrition Answer Date Rec orded Do you have access to a vari ety of food including fruits and vegetables? Yes 06/15/2024 Access to Healthcare Answer Date Record ed Within the last 3 months, ho w many times did you visit the emergency department for your medical care? 0 06/15/2024 Health Literacy Answer Date Recorded How often do you need to hav e someone help you when you read instructions, pamphlets, or other written material from your doctor or pharmacy? Never 06/15/2024 Caregiver: How often do you need to have someone help you when you read instructions, pamphlets, or other written material from your doctor or pharmacy? Not on file 06/15/2024 Financial Risk Answer Date Recorded How hard is it for you to pa y for the very basics like food, housing, medical care, and air conditioning / heating? Hard 06/15/2024 Transportation Answer Date Recorded Has the lack of transportati on kept you from meetings, work, or from getting things needed for daily living? No Has the lack of transportati on kept you from medical appointments or from getting medications? No 06/15/2024 Social Isolation Answer Date Recorded How often do you feel lonely or isolated from th ose around you? Never 06/15/2024 Food Risk Answer Date Recorded Within the past 12 months we worried whether our food would run out before we got money to buy more. Never true 06/15/2024 Within the past 12 months th e food we bought just didn't last and we didn't have money to get more. Never true 06/15/2024 Dependent Care Answer Date Recorded Do you need help finding or paying for care for your loved ones. For example, child welfare caseworker or elderly care for an older adult? No 06/15/2024 Education Answer Date Recorded Do you think completing more education or training, like finishing a GED, going to college, or learning a trade, would be helpful for you? Yes 06/15/2024 Employment and Income Answer Date Recor ded During the last four weeks, have you been actively looking for work? No 06/15/2024 Living Situation Answer Date Recorded What is your living situation? 0 06/15/2024 Comments No Sex and Gender Information Value Date Recorded Sex Assigned at Not on file Legal Sex Female 4:46 AM EST Gender Identity Not on file Sexual Orientation Not on file Obstetrics History Last Filed Vital Signs Vital Sign Reading Time Taken Comments Blood Pressure 110/80 06/30/2024 2:48 PM EDT Pulse 103 06/22/2024 8:33 AM EDT Temperature 36.1 ??C (96.9 ??F) 06/22/2024 8:33 AM ED T Respiratory Rate - - Oxygen Saturation - - Inhaled Oxygen Concentration - - Weight 121 kg (266 lb) 06/30/2024 2:48 PM EDT Height 160 cm (5' 3 ) 06/30/2024 2:48 PM EDT Body Mass Index 47.12 06/30/2024 2:48 PM EDT Plan of Treatment Upcoming Encounters Date Type Department Care Team (Late st Contact Info) Description 07/10/2024 2:30 PM EDT Office Visit [facility] [address] [place] [phone] Destiny Webber MD [address] [place] [address] [address] [place] [address] 10/29/2024 9:00 AM EDT Office Visit Adult Medicine - [place] [address] [place] [phone] Mike Talbert PA [address] [place] [address] Health Maintenance Due Date Last Done Comments Hepatitis B Vaccines (1 of 3 - 19+ 3-dose series) 12/11/1987 Pneumococcal Vaccine: 50+ Years (2 of 2 - PPSV23) 08/31/2014 07/06/2014 Pneumococcal Vaccine: Pediatrics (0 to 5 Years) and At-Risk Patients (6 to 64 Years) (2 of 2 - PPSV23) 08/31/2014 07/06/2014 Zoster Vaccines (1 of 2) 2018 HIV Screening 02/17/2022 Cervical Cancer Screening: HPV 10/16/2023 10/15/2018 COVID-19 Vaccine ( season) 2023 02/24/2022, 04/06/2021, 08/22/2020, Additional history exists Diabetes: Annual Urine Albumin-Creatinine Ratio (uACR) 03/13/2024 03/13/2023 Diabetes: Annual Foot Exam 04/04/2024 04/04/2023 Diabetes: Blood Sugar Control Test (HGBA1C) 06/18/2024 12/19/2023, 12/19/2023, 08/15/2023 Diabetes: Annual Retina Eye Exam 09/09/2024 09/10/2023 Influenza Vaccine (Season Ended) 2024 12/27/2020, 11/28/2019 Diabetes: Annual GFR (Glomerular Filtration Rate) 12/18/2024 12/19/2023, 08/15/2023, 12/19/2003 Hypertension/CHF/CAD Annual BMP Blood Test 12/18/2024 12/19/2023, 08/15/2023, 12/19/2003 Breast Cancer Screening 05/28/2025 05/29/19 24, 07/25/2020, 07/07/2020, Additional history exists Depression Screening 06/15/2025 06/15/2024, 02/21/20 23 Social Influencers of Health Screening 06/15/2025 06/15/2024 Cholesterol Screening (Lipid Panel) 08/14/2028 08/15/2023, 08/15/2023 DTaP,Tdap,and Td Vaccines (3 - Td or Tdap) 02/16/2030 02/17/2020, 04/29/2007 Colorectal Cancer Screening: Colonoscopy 07/26/2032 07/26/2022 Hepatitis C Screening Completed 01/10/2021 HIB Vaccines Aged Out No longer eligi ble based on patient's age to complete this topic HPV Vaccines Aged Out No longer eligi ble based on patient's age to complete this topic Hepatitis A Vaccines Aged Out No long er eligible based on patient's age to complete this topic IPV Vaccines Aged Out No longer eligi ble based on patient's age to complete this topic MMR Vaccines Aged Out No longer eligi ble based on patient's age to complete this topic Meningococcal ACWY Vaccine Aged Out N o longer eligible based on patient's age to complete this topic Meningococcal B Vaccine Aged Out No l onger eligible based on patient's age to complete this topic RSV Immunization Patients Under 20 months Aged Out No longer eligible based on patient's age to complete this topic Varicella Vaccines Aged Out No longer eligible based on patient's age to complete this topic Procedures Procedure Name Priority Date/Time Associated Diagnosis Comments ECG 12-LEAD Routine 06/22/2024 11:54 AM EDT HEMOGLOBIN A1C Routine 12/19/2023 DIABETES EYE EXAM Routine 09/10/2023 LIPID PANEL Routine 08/15/2023 SCREENING MAMMOGRAPHY BI 2-VIEW BREAST INC CAD Routine 05/29/2023 1:52 PM EDT Encounter for other screening for malignant neoplasm of breast DIABETES FOOT EXAM Routine 04/04/2023 URINE ALBUMIN CREATININE RATIO Routine 03/13/2023 DEPRESSION SCREENING Routine 02/20/2023 COLONOSCOPY Routine 07/26/2022 HEPATITIS C SCREENING Routine 01/10/2021 HPV Routine 10/15/2018 ANNUAL BMP BLOOD TEST Routine 12/19/2003 from Last 3 Months or Most Recently Relevant to Health Maintenance Results * ECG 12 lead (06/22/2024 11:54 AM EDT) [facility] Provider ECG ORDERABLES Final Res ult * (ABNORMAL) Hemoglobin A1c (12/19/2023) [facility] Hemoglobin A1C 6.8(A) <=6.5 % Blood Venous blood specimen / Unknown Result [facility] Provider LAB BLOOD ORDERABLES Francesca l Result * Diabetes Eye Exam (09/10/2023) [facility] Diabetes: Annual Retina Eye Exam abstracted [facility] Provider HEALTH MAINTENANCE Final Result * Lipid panel (08/15/2023) [facility] LDL/HDL Ratio 3 0 - 4 Triglycerides 80 0 - 150 mg/dL Cholesterol 153 0 - 200 mg/dL HDL 46 >=40 mg/dL LDL Cholesterol 91 0 - 100 mg/dL Blood Venous blood specimen / Unknown [facility] Provider LAB BLOOD ORDERABLES Francesca l Result * SCREENING MAMMOGRAPHY BI 2-VIEW BREAST INC CAD (05/29/2023 1:52 PM EDT) Anatomical Region Laterality Modality Radiographic Elena ging 02/11/2023 1:52 PM EST Narrative 05/30/2023 8:45 AM EDT This is a summary report. The complete report is available in the patient's medical record. If you cannot access the medical record, please contact the sending organization for a detailed fax or copy. Study: SCREENING MAMMOGRAPHY BI 2-VIEW BREAST INC CAD Technique: Bilateral full-field digital screening mammography is obtained and read in conjunction with computer aided detection. ??Tomosynthesis as well as 2D C-View imaging were obtained. ??Best possible images according to the technologist notes. Comparison: July 07, 2020 and November 19, 2018. Breast composition: There are scattered areas of fibroglandular density. Bilateral breasts: No significant masses, suspicious calcifications or other abnormalities are seen in either breast. IMPRESSION: Impression: Bilateral breasts: Negative, no specific mammographic evidence of malignancy. ??Normal interval follow-up is recommended in 12 months. BI-RADS: Category 1: Negative Procedure Note Maurizio Brooks MD - 10/28/2023 This is a summary report. The complete report is available in thepatient's medical record. If you cannot access the medical record, pleasecontact the sending organization for a detailed fax or copy. Study: SCREENING MAMMOGRAPHY BI 2-VIEW BREAST INC CAD Technique: Bilateral full-field digital screening mammography is obtainedand read in conjunction with computer aided detection. Tomosynthesis aswell as 2D C-View imaging were obtained. Best possible images accordingto the technologist notes. Comparison: July 07, 2020 and November 19, 2018. Breast composition: There are scattered areas of fibroglandular density. Bilateral breasts: No significant masses, suspicious calcifications orother abnormalities are seen in either breast. IMPRESSION: Impression: Bilateral breasts: Negative, no specific mammographic evidence ofmalignancy. Normal interval follow-up is recommended in 12 months. BI-RADS: Category 1: Negative Flynn Aguilar CNM IMG XR PROCEDURES Final Resul t * Diabetes Foot Exam (04/04/2023) Diabetes: Annual Foot Exam abstracted Historical Provider HEALTH MAINTENANCE Final Result * Urine Albumin Creatinine Ratio (03/13/2023) [facility] Urine Albumin Creatinine Ratio abstracted [facility] Provider HEALTH MAINTENANCE Final Result * Depression Screening (02/20/2023) [facility] Depression Screening abstracted [facility] Provider HEALTH MAINTENANCE Final Result * Colonoscopy (07/26/2022) [facility] Colonoscopy abstracted, no interpretation Anatomical Region Laterality Modality Other [facility] Provider HEALTH MAINTENANCE Final Result * Hepatitis C Screening (01/10/2021) [facility] Hepatitis C Screening abstracted [facility] Provider HEALTH MAINTENANCE Final Result * Cervical Cancer Screening: HPV (10/15/2018) [facility] Cervical Cancer Screening: HPV abstracted, negative [facility] Provider HEALTH MAINTENANCE Final Result * Annual BMP Blood Test (12/19/2003) [facility] Annual BMP Blood Test abstracted [facility] Provider HEALTH MAINTENANCE Final Result from Last 3 Months or Most Recently Relevant to Health Maintenance Insurance [facility] [employer] [facility] Care Teams Finished Cloth Checker Relationship Specialty Start Date End Date Kareen Caldwell MD [address] [place] [address] [id number] PCP - General Internal Medicine 03/24/24
--- OUTSIDE RECORDS SUMMARY | 2024-07-01 16:52 | XMS_ITS | Encounter Summary ---
Author Organization [facility], [facility]ated [facility] Address [address] [place] [address] Care Team Providers Care Personal Support Worker Name Role Phone Telma Foster APRN Primary Care Provider [phone] Pcp, No Primary Care Provider Clarisse Parker APRN Primary Care Provider [phone] Reason for Visit * Reason Comments Medication Refill Encounter Details Date Type Department Care Team (Late st Contact Info) Description 02/24/2018 Refill [facility] 100 [facility] 101 [place] [address] Telma Foster APRN [address] [phone] Benign essential HTN Social History Tobacco Use Types Packs/Day Years [...] as of this encounter Visit Diagnoses Diagnosis Benign essential HTN documented in this encounter Care Teams Personal Support Worker Relationship Specialty Start Date End Date Telma Foster APRN [address] [facility] 101 [place] [address] PCP - General Family Medicine 08/14/17 12/21/18 Pcp, No PCP - General General Medicine 12/22/18 03/19/22 Clarisse Downey APRN [address] [place] [id number] PCP - General 03/20/22 06/18/22 documented as of this encounter
--- OUTSIDE RECORDS SUMMARY | 2024-07-01 16:52 | XMS_ITS | Encounter Summary ---
Author Organization [facility] Address [address] [place] [address] Care Team Providers Care Molded Goods Inspector Trimmer Name Role Phone Telma Foster APRN Primary Care Provider [phone] Pcp, No Primary Care Provider Clarisse Parker APRN Primary Care Provider [phone] Reason for Visit * Reason Comments Medication Refill Encounter Details Date Type Department Care Team (Late st Contact Info) Description 11/12/2018 Refill [facility] 100 [facility] 101 [place] [address] Telma Foster APRN [address] [phone] Benign essential HTN Social History Tobacco Use [...] HTN documented in this encounter Care Teams Molded Goods Inspector Trimmer Relationship Specialty Start Date End Date Telma Foster APRN [address] [facility] 101 [place] [address] PCP - General Family Medicine 08/14/17 12/21/18 Pcp, No PCP - General General Medicine 12/22/18 03/19/22 Clarisse Downey APRN [address] [place] [id number] PCP - General 03/20/22 06/18/22 documented as of this encounter
--- OUTSIDE RECORDS SUMMARY | 2024-07-01 16:52 | XMS_ITS | Encounter Summary ---
Author Organization [facility] Address [address] [place] [address] Care Team Providers Care Cook Box Filler Name Role Phone Telma Foster APRN Primary Care Provider [phone] Pcp, No Primary Care Provider Clarisse Parker APRN Primary Care Provider [phone] Encounter Details Date Type Department Care Team (Late st Contact Info) Description 08/27/2018 Scanned Document [address] [place] [address] Provider, Generic Social History Tobacco [...] on filedocumented in this encounter Care Teams Cook Box Filler Relationship Specialty Start Date End Date Telma Foster APRN [address] [facility] [address] [place], [place] [address] PCP - General Family Medicine 08/14/17 12/21/18 Pcp, No PCP - General General Medicine 12/22/18 03/19/22 Clarisse Downey APRN [address] [place] [address] [place] [address] PCP - General 03/20/22 06/18/22 documented as of this encounter
--- OUTSIDE RECORDS SUMMARY | 2024-07-01 16:52 | XMS_ITS | Encounter Summary ---
Author Organization [facility] Address [address] [place] [address] Care Team Providers Care Land Economist Name Role Phone Unavailable Primary Care Provider Unavailabl e Encounter Details Date Type Department Care Team (Latest Contact Info) Description 10/17/2021 Abstract [facility] CONVERSIONS Dental, Provider, DDS Social History Tobacco Use Types Packs/Day Years Used Date Smoking Tobacco: Never Assessed Comments Unknown Sex and Gender Information Value Date Recorded Sex Assigned at Female 01/08/2022 10:38 AM EDT Legal Sex Female 10:38 AM EDT Gender Identity Female 01/08/2022 10:38 AM EDT Sexual Orientation Don't know 04/24/2022 2: 25 PM EST Sexual Orientation Straight 04/24/2022 2: 25 PM EST documented as of this encounter Plan of Treatment Not on file documented as of this encounter Visit Diagnoses Not on filedocumented in this encounter
--- OUTSIDE RECORDS SUMMARY | 2024-07-01 16:52 | XMS_ITS | Clinical Summary ---
Author Organization [facility] Address 100 [place] [address] Care Team Providers Care Special Events Director Name Role Phone Unavailable Primary Care Provider Unavailabl e Allergies Active Allergy Reactions Criticality Noted Date Comments Bee Venom Swelling Medium 03/21/2016 Other Other (See Comments) 04/06/2016 Pollen Rice Allergy Skin Test Anaphylaxis High 08/10/2016 Seafood Other (See Comments) 08/10/2016 Allergy test. Tree Nut Hives Medium 03/26/2016 Medications methylcellulose oral powder Take by mouth daily. Active albuterol (PROAIR HFA) 108 (90 BASE) MCG/ACT inhaler Inhale 1 puff every 4 (four) hours as needed. 3 Active ascorbic acid (VITAMIN C) 500 MG tablet Take 500 mg by mouth daily. Active ferrous sulfate 325 (65 FE) MG tablet Take 325 mg by mouth 2 (two) times a day before meals. Active vitamin B-12 (CYANOCOBALAMIN) 100 MCG tablet Take 50 mcg by mouth daily. Active lidocaine (LIDODERM) 5 % patch APPLY 1 PATCH AA AND LEAVE IN PLACE FOR 12 H THEN REMOVE AND LEAVE OFF FOR 12 HOURS 2 8 Active Lidocaine-Hydroco rtisone Pedro 2-2 % Kit 8 Active EPINEPHrine (EPIPEN 2-BOB) 0.3 mg/0.3 mL IJ auto-injectionInd ications:Essentia l hypertension EpiPen 2-Bob 0.3 MG/0.3ML Injection Solution Auto-injector USE DIRECTED Quantity: 1; 2 Device 1 8 Active PANTOprazole (PROTONIX) 40 MG EC tabletIndications :Eosinophilic esophagitis,GERD without esophagitis TAKE 1 TABLET BY MOUTH EVERY DAY 90 tablet 9 Active meloxicam (MOBIC) 15 MG tabletIndications :Acute left-sided low back pain without sciatica Take 1 tablet (15 mg total) by mouth daily. 30 tablet 3 9 Active cyclobenzaprine (FLEXERIL) 10 MG tabletIndications :Acute left-sided low back pain without sciatica Take 1 tablet (10 mg total) by mouth 3 times daily (every 8 hours) as needed for muscle spasms. 20 tablet 9 Active montelukast (SINGULAIR) 10 MG tabletIndications :Mild intermittent asthma, unspecified whether complicated Take 1 tablet (10 mg total) by mouth nightly. 30 tablet 5 9 Active tamsulosin (FLOMAX) 0.4 MG capsuleIndication s:Kidney stone Take 1 capsule (0.4 mg total) by mouth daily. 7 capsule 9 Active metoPROLOL TARTRATE (LOPRESSOR) 50 MG tabletIndications :Benign essential HTN TAKE 1 TABLET BY MOUTH TWICE DAILY 180 tablet 9 Active triamterene-hydro chlorothiazide (MAXZIDE-25) 37.5-25 MG per tabletIndications :Benign essential HTN TAKE 1 TABLET BY MOUTH DAILY 90 tablet 9 Active Active Problems Problem Noted Date Diagnosed Date Right medial knee pain 08/16/2017 Airway hyperreactivity 10/26/2014 Allergic rhinitis 10/26/2014 Allergic to bees 10/26/2014 Arthralgia of hip 10/26/2014 (sickle cell trait) 10/26/2014 BP (high blood pressure) 10/26/2014 Fatigue 10/26/2014 Gonalgia 10/26/2014 Immunizations Immunization Administration Dates Next Due Pneumococcal Conjugate 13-Valent 07/06/2014 Tdap 04/29/2007 Family History Medical History Relation Name Comments Alcohol abuse Father Breast cancer Mother Relation Name Status Comments Father Mother Social [...] on file Sexual Orientation Not on file Last Filed Vital Signs Vital Sign Reading Time Taken Comments Blood Pressure 106/73 09/02/2018 1:59 PM EDT Pulse 62 09/02/2018 1:59 PM EDT Temperature 36.8 ??C (98.2 ??F) 09/02/2018 1:59 PM ED T Respiratory Rate 20 09/02/2018 1:59 PM EDT Oxygen Saturation 98% 09/02/2018 1:59 PM EDT Inhaled Oxygen Concentration - - Weight 120 kg (265 lb) 09/02/2018 1:59 PM EDT Height 160 cm (5' 3 ) 09/25/2017 2:51 PM EDT Body Mass Index 46.94 09/25/2017 2:51 PM EDT Plan of Treatment Health Maintenance Due Date Last Done Comments Hepatitis C Virus Screening 1968 HIV Screening 1981 Hepatitis B Vaccines (1 of 3 - 19+ 3-dose series) 04/1987 Pap Smear (Ages 21-65) 1989 Mammogram 2008 Colonoscopy 2013 Pneumococcal Vaccines 50+ (2 of 2 - PPSV23) 08/31/2014 07/06/2014 DTaP/Tdap/Td Vaccines (2 - Td or Tdap) 04/29/2017 Zoster (Shingles) Vaccine (1 of 2) 2018 Influenza Vaccine 10/10/2023 02/21/2016 COVID-19 Vaccine ( - season) 2023 Insurance [facility]
--- OUTSIDE RECORDS SUMMARY | 2024-07-01 16:52 | XMS_ITS | Encounter Summary ---
Author Organization [facility] Address [address] [place] [address] Care Team Providers Care Director Education Name Role Phone Telma Foster APRN Primary Care Provider [phone] Pcp, No Primary Care Provider Clarisse Parker APRN Primary Care Provider [phone] Encounter Details Date Type Department Care Team (Late st Contact Info) Description 02/20/2018 Scanned Document [address] [place] [address] Provider, Generic Social History Tobacco [...] on filedocumented in this encounter Care Teams Director Education Relationship Specialty Start Date End Date Telma Foster APRN [address] [place], [place] [address] PCP - General Family Medicine 08/14/17 12/21/18 Pcp, No PCP - General General Medicine 12/22/18 03/19/22 Clarisse Downey APRN [address] [place] [address] [place] [address] PCP - General 03/20/22 06/18/22 documented as of this encounter
--- OUTSIDE RECORDS SUMMARY | 2024-07-01 16:52 | XMS_ITS | Encounter Summary ---
Author Organization [facility] Address [address] [place] [address] Care Team Providers Care Radiology Nurse Name Role Phone Telma Foster APRN Primary Care Provider [phone] Pcp, No Primary Care Provider Clarisse Parker APRN Primary Care Provider [phone] Reason for Visit * Reason Comments Medication Refill Encounter Details Date Type Department Care Team (Late st Contact Info) Description 09/02/2018 Refill [facility] 100 [facility] [address] [place] [phone] Telma Foster APRN [address] [place] [address] Acute left-sided low back pain without sciatica; Kidney stone Social History Tobacco Use Types Packs/Day Years [...] Acute left-sided low back pain without sciatica Kidney stone Calculus of kidney documented in this encounter Care Teams Radiology Nurse Relationship Specialty Start Date End Date Telma Foster APRN [address] [place] [address] PCP - General Family Medicine 08/14/17 12/21/18 Pcp, No PCP - General General Medicine 12/22/18 03/19/22 Clarisse Downey APRN [address] [place] [address] PCP - General 03/20/22 06/18/22 documented as of this encounter
--- OUTSIDE RECORDS SUMMARY | 2024-07-01 16:52 | XMS_ITS | Clinical Summary ---
Author Organization [facility] Address [address] [place] [address] Phone Care Team Providers Care Herbicide Service Sales Representative Name Role Phone Criselda Sosa YANET Primary Care Provider [phone] Allergies Active Allergy Reactions Criticality Noted Date Comments Banana 06/17/2019 vomiting Bee Venom Swelling Medium 10/26/2014 Fish Oil Other (see comments) 08/10/2016 Allergy test. Other reaction(s): Other (See Comments) Allergy test. Other Other (see comments) 04/06/2016 Pollen Other reaction(s): throat swelling Other reaction(s): throat swelling Rice High 12/17/2018 Throat swelling and hives. Rice Allergy Skin Test Anaphylaxis High 08/10/2016 Medications triamterene-hyd roCHLOROthiazid e (DYAZIDE) 37.5-25 MG per capsule Take 1 capsule by mouth 1 (one) time each day in the morning Active metoprolol tartrate (LOPRESSOR) 50 MG tablet Take 50 mg by mouth 2 (two) times a day Active montelukast (SINGULAIR) 10 MG tablet Take 10 mg by mouth every night Active meloxicam (MOBIC) 15 MG tablet Take 15 mg by mouth if needed Active cetirizine (ZyrTEC) 10 MG tablet Take 10 mg by mouth 1 (one) time each day Active cyclobenzaprine (FLEXERIL) 10 MG tablet Take 10 mg by mouth 3 (three) times a day if needed for muscle spasms Active L-Theanine 100 MG capsule Take 1 capsule by mouth 1 (one) time each day Active clotrimazole (LOTRIMIN) 1 % cream Apply 1 application topically 2 (two) times a day if needed 1 Active Diclofenac Sodium 1 % gel Apply 1 application topically 4 (four) times a day 1 Active LORazepam (ATIVAN) 1 MG tablet Take 1 tablet by mouth if needed 1 Active KLOR-CON 10 MEQ CR tablet Take 10 mEq by mouth 1 (one) time each day 2 Active EPINEPHrine (EPIPEN) 0.3 MG/0.3ML injection syringe USE DIRECTED FOR ANAPHYLAXIS THEN CALL 911 2 Active lidocaine (LIDODERM) 5 % patch APPLY 1 PATCH TOPICALLY DAILY (12 HOURS ON/12 HOURS OFF) 2 Active Trulicity 0.75 MG/0.5ML solution pen-injector Inject 0.75 mL under the skin every 7 (seven) days 3 Active Active Problems Problem Noted Date Diagnosed Date Severe obesity 11/30/2021 Stage 3a chronic kidney disease 06/26/2021 Type 2 diabetes mellitus controlled by diet 06/09 Nephrolithiasis 01/26/2019 Hypertensive disorder 10/26/2014 Resolved Problems Problem Noted Date Diagnosed Date Resolved Date Hyperlipidemia 11/01/2020 12/05/2020 Supraventricular tachycardia 11/01/2020 12/05/2020 Anticipatory anxiety 10/05/2020 021 Overview (12/05/2020): Last Assessment & Plan: Prescription for 10 tablets of 1 mg Xanax is sent to the pharmacy-she has multiple root canal and tooth extractions scheduled in the next 2 to 3 weeks. She also takes preprocedural antibiotics, this is prescribed by her dentist. 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 Refill sent to the pharmacy Colonoscopy declined 06/10/2020 021 Thyroid nodule 03/08/2020 12/05/2020 Overview (12/05/2020): Multiple thyroid nodules-needs FNAC. Refer to Endo Atypia of Unknown Significance 06/29--rpt F[facility] at [facility] for ? Molecular Analysis spoke with patient 06/2020 and discussed the options with her. ??Is not interested in going directly to surgery at this point. ??I told her it would be well to repeat the biopsy in the middle of July and will be done at [facility] where tissue can be saved for molecular analysis IF this is necessary Seen by Dr. Brian Lara at [facility] in 09/2020 for removal of thyroid nodule, as she has abnormal findings on FNA C. Last Assessment & Plan: Seen by Dr. Brian Lara at [facility] in 09/2020 for removal of thyroid nodule, as she has abnormal findings on FNA C. As per her, surgeon is booked for 3 months, most likely she might be scheduling him March 2019 she is closely following with him. Disorder of joint of spine 09/21/2019 0 12/05/2020 Obstructive sleep apnea 05/04/201911/10 Overview (12/05/2020): [facility] Polysomnogram: Date 04/28/2019; Wt [...] attack, abnormal heart rhythms, hypertension, diabetes etc. Asthma 01/26/2019 12/05/2020 Body mass index 40+ - severely obese 01/26/2019 12/05/2020 Diverticular disease 01/26/2019 021 Eosinophilic esophagitis 01/26/2019 Gastroesophageal reflux disease 01/26/2019 12/05/2020 Sickle cell trait 01/26/2019 12/05/2020 Vitamin D deficiency 01/26/2019 021 Allergy to food 12/17/2018 12/05/2020 Overview (12/05/2020): Seafood, Tree Nuts, Rice Diabetic dyslipidemia associ ated with type 2 diabetes mellitus 12/15/2018 12/05/2020 Type 2 diabetes mellitus 12/15/2018 Seasonal allergy 11/28/2018 12/05/2020 Bilateral arthritis of knees 11/26/2018 12/05/2020 Overview (12/05/2020): Last Assessment & Plan: Reviewed operational risk consultant note, she is getting knee injections-her pain improved. H/O: knee problem 11/26/2018 12/05/2020 Immunizations Immunization Administration Dates Next Due Influenza, MDCK, PF, Quadrivalent 12/27/2020 Pneumococcal Conjugate 13-Valent 07/06/2014 Td 02/17/2020 Tdap 04/29/2007 Family History Medical History Relation Comments Hypertension Father Hypertension Mother Relation Status Comments Father Mother Social History Tobacco Use Types Packs/Day Years Used Date Smoking Tobacco: Never Smokeless Tobacco: Never Tobacco Cessation:Counseling Given: No Alcohol Use Standard Drinks/Week Comments Never 0 (1 standard drink = 0.6 oz pur e alcohol) Comments Unknown Sex and Gender Information Value Date Recorded Sex Assigned at Not on file Legal Sex Female 4:58 PM EST Gender Identity Not on file Sexual Orientation Not on file Last Filed Vital Signs Vital Sign Reading Time Taken Comments Blood Pressure 130/78 12/04/2022 1:25 PM EDT Pulse 80 12/04/2022 1:25 PM EDT Temperature - - Respiratory Rate - - Oxygen Saturation 97% 12/04/2022 1:25 PM EDT Inhaled Oxygen Concentration - - Weight 122 kg (270 lb) 12/04/2022 1:25 PM EDT Height 160 cm (5' 3 ) 12/04/2022 1:25 PM EDT Body Mass Index 47.83 12/04/2022 1:25 PM EDT Plan of Treatment Health Maintenance Due Date Last Done Comments Breast Cancer Screening 1968 Hepatitis B Vaccine (1 of 3 - 19+ 3-dose series) 12/11/1987 Pneumococcal Vaccine: 50+ Ye ars (2 of 2 - PPSV23) 08/31/2014 07/06/2014 Colorectal Cancer Screening: Annual FOBT 2017 Colorectal Cancer Screening: Colonoscopy 2017 Colorectal Cancer Screening: Sigmoidoscopy 2017 Diabetes: Ophthalmology Exam 11/30/2021 Diabetes: Pedal Pulse Checked 11/30/2021 Diabetes: Sensory Foot Exam 11/30/2021 Diabetes: Visual Foot Exam 11/30/2021 Diabetes: Hemoglobin A1C 12/23/2021 09/22/2021, 10/10 Influenza Vaccine (Season Ended) 2024 12/28/19 21 Pneumococcal Vaccine: Peds ( 0 to 5 Years) and At-Risk Patients (6 to 49 Years) Discontinued 07/06/2014 [place] [address] [place] [address] Care Teams Herbicide Service Sales Representative Relationship Specialty Start Date End Date Criselda Sosa APRN [address] [place] [address] PCP - General Hematology and Oncology 12/04/22
--- OUTSIDE RECORDS SUMMARY | 2024-07-01 16:52 | XMS_ITS | Clinical Summary ---
Author Organization [employer] Address [address] [place] [address] 7 [place] [address] Care Team Providers Care Candy Roller Name Role Phone Unavailable Primary Care Provider Unavailabl e Allergies Active Allergy Reactions Criticality Noted Date Comments Banana 06/17/2019 vomiting Bee Venom Swelling Medium 10/26/2014 Fish Oil Unknown 08/10/2016 Allergy test. Other reaction(s): Other (See Comments) Allergy test. Medications cetirizine (ZyrTEC) 10 MG tablet Take 10 mg by mouth. Active clotrimazole (Lotrimin) 1 % cream APPLY TWICE DAILY TO THE AFFECTED AREA NEEDED UNTIL RASH CLEARS UP 2 Active cyclobenzaprine (Flexeril) 10 MG tablet Take 10 mg by mouth if needed in the morning, at noon, and at bedtime. 9 Active EPINEPHrine (Epipen) 0.3 MG/0.3ML injection syringe USE DIRECTED FOR ANAPHYLAXIS THEN CALL 911 2 Active cyanocobalamin (Vitamin B-12) 100 MCG tablet Take 50 mcg by mouth in the morning. Active lidocaine (Lidoderm) 5 % patch APPLY 1 PATCH TOPICALLY DAILY (ON 12 HOURS OFF 12 HOURS) 2 Active LORazepam (Ativan) 1 MG tablet Take 1 mg by mouth if needed each day. 2 Active meloxicam (Mobic) 15 MG tablet Take 15 mg by mouth. 9 Active metoprolol tartrate (Lopressor) 50 MG tablet Take 50 mg by mouth 2 times daily. 6 Active montelukast (Singulair) 10 MG tablet Take 10 mg by mouth. 9 Active naproxen (Naprosyn) 125 MG/5ML suspension TAKE 10-20ML BY MOUTH TWICE DAILY NEEDED FOR PAIN 2 Active Theanine 100 MG capsule Take 1 capsule by mouth. Active triamterene-hyd rochlorothiazid e (Maxzide-25) 37.5-25 MG tablet Take 1 tablet by mouth. 1 Active Social History Tobacco Use Types Packs/Day Years Used Date Smoking Tobacco: Never Passive Smoke Exposure: Never Smokeless Tobacco: Never Tobacco Cessation:Counseling Given: Not Answered Alcohol Use Standard Drinks/Week Comments Yes 0 (1 standard drink = 0.6 oz pur e alcohol) only on occasion Comments Unknown Sex and Gender Information Value Date Recorded Sex Assigned at Female 01/08/2022 10:38 AM EDT Legal Sex Female 10:38 AM EDT Gender Identity Female 01/08/2022 10:38 AM EDT Sexual Orientation Don't know 04/24/2022 2: 25 PM EST Sexual Orientation Straight 04/24/2022 2: 25 PM EST Last Filed Vital Signs Vital Sign Reading Time Taken Comments Blood Pressure 131/71 07/12/2022 2:04 PM EDT Pulse 68 07/12/2022 2:04 PM EDT Temperature - - Respiratory Rate - - Oxygen Saturation - - Inhaled Oxygen Concentration - - Weight - - Height - - Body Mass Index - - Plan of Treatment Health Maintenance Due Date Last Done Comments CT Colonography 1968 Colonoscopy 1968 Colorectal Cancer Screening 1968 Depression Screening 1968 FIT DNA/Cologuard 1968 FIT 1968 FOBT 1968 HIV Screening 1968 Lipid Panel 1968 SDOH Screening 1968 Sigmoidoscopy 1968 Alcohol/Substance Use Screening 1980 Hepatitis C Screening 1986 Hepatitis B Vaccines (1 of 3 - 19+ 3-dose series) 12/11/1987 Pap Smear 1989 Cervical Cancer Screening 1998 HPV/Cotest 1998 Mammogram 2008 Pneumococcal Vaccine: 50+ Years (2 of 2 - PPSV23) 08/31/2014 07/06/2014 Zoster Vaccines (1 of 2) 2018 Dental Prophylaxis 10/23/2022 04/24/2022 Dental Oral Exam 11/01/2023 05/02/2023, 03/16/2022 COVID-19 Vaccine ( season) 2023 02/24/2022, 04/06/2021, 08/22/2020, Additional history exists Influenza Vaccine (#1) 2023 12/27/2020, 2019 Dental X-Ray: Bitewings 03/06/2024 03/05/2023, 03/16 Tobacco Screening 05/02/2024 05/02/2023 Dental X-Ray: Full Mouth 03/06/2026 03/05/2023 DTaP/Tdap/Td Vaccines (3 - Td or Tdap) 02/16/2030 02/17/2020, 04/29/2007 RSV Patients and Patients Aged 60 years or older (1 - 1-dose 75+ series) 12/11/2043 HIB Vaccines Aged Out No longer eligi [...] patient's age to complete this topic Meningococcal Vaccine Aged Out No lisette joe eligible based on patient's age to complete this topic RSV under 20 months Aged Out No longe r eligible based on patient's age to complete this topic Rotavirus Vaccines Aged Out No longer eligible based on patient's age to complete this topic Procedures Procedure Name Priority Date/Time Associated Diagnosis Comments PERIODIC ORAL EVALUATION - ESTABLISHED PATIENT Routine 05/02/2023 10:00 AM EST INTRAORAL - COMPLETE SERIES OF RADIOGRAPHIC IMAGES Routine 03/05/2023 2:30 PM EST PROPHYLAXIS - ADULT Routine 04/24/2022 2 :00 PM EST from Last 3 Months or Most Recently Relevant to Health Maintenance Insurance [facility] MEDICAID STAND ADULT
--- OUTSIDE RECORDS SUMMARY | 2024-07-01 16:52 | XMS_ITS | Encounter Summary ---
Author Organization [facility] Address [address] [place] [address] Care Team Providers Care House Wirer Name Role Phone Telma Foster APRN Primary Care Provider [phone] Pcp, No Primary Care Provider Clarisse Parker APRN Primary Care Provider [phone] Reason for Visit * Reason Comments Medication Refill Encounter Details Date Type Department Care Team (Late st Contact Info) Description 08/22/2018 Refill [facility] 100 [facility] 101 [place] [phone] Telma Foster APRN [address] [phone] Benign essential HTN Social History Tobacco Use [...] HTN documented in this encounter Care Teams House Wirer Relationship Specialty Start Date End Date Telma Foster APRN [address] [facility] 101 [place] [address] PCP - General Family Medicine 08/14/17 12/21/18 Pcp, No PCP - General General Medicine 12/22/18 03/19/22 Clarisse Downey APRN [address] [place] [address] PCP - General 03/20/22 06/18/22 documented as of this encounter
--- OUTSIDE RECORDS SUMMARY | 2024-07-01 16:52 | XMS_ITS | Clinical Summary ---
Author Organization [facility] Address [address] [place] [address] Care Team Providers Care Electric Frying Pan Repairer Name Role Phone Cristian Telma Virgen HOLT Primary Care Provider [phone] Allergies Active Allergy Reactions Criticality Noted Date Comments Bee Sting 10/26/2014 Bee Venom Swelling Medium 03/21/2016 Rice Allergy Skin Test Anaphylaxis High 08/10/2016 Seafood 08/10/2016 Other reaction(s): Other (See Comments) Allergy test. Medications Medication Sig Dispensed Refills Start Date End Date Status triamterene-hydrochl orothiazide (MAXZIDE-25) 37.5-25 MG per tablet Take 1 tablet by mouth daily. 0 02/07/2011 Active EPINEPHrine (EPIPEN 2-BOB) 0.3 MG/0.3ML SOAJ EpiPen 2-Bob 0.3 MG/0.3ML Injection Solution Auto-injector USE DIRECTED Quantity: 1; Refills: 0 Lidia cShuster APRN; Started 05-Jan-2014 Active 0 01/05/2014 Active metoprolol tartrate (LOPRESSOR) 50 MG tablet TAKE ONE TABLET BY MOUTH TWICE DAILY 60 tablet 11 03/02/2016 Active ergocalciferol (VITAMIN D2) capsule 77731 units Take 50,000 Units by mouth. 0 Active pantoprazole (PROTONIX) 40 MG tablet 0 04/16/2016 Active montelukast (SINGULAIR) 10 MG tablet Take 10 mg by mouth. 0 Active Lidocaine-Hydrocorti sone Pedro 2-2 % KIT 0 03/07/2016 Active Ferrous Qpeyoygow-X-Lnaji Acid (IRON-C PO) Take by mouth. 0 Acti ve cyclobenzaprine (FLEXERIL) 10 MG tablet Take 1 tablet (10 mg total) by mouth 3 (three) times a day as needed for muscle spasms. 6 tablet 0 08/27/2018 Active ibuprofen (ADVIL,MOTRIN) 200 MG tablet Take 3 tablets (600 mg total) by mouth every 8 (eight) hours as needed for pain. 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 Fatigue 10/26/2014 Arthralgia of hip 10/26/2014 BP (high blood pressure) 10/26/2014 Gonalgia 10/26/2014 (sickle cell trait) 10/26/2014 Immunizations Name Administration Dates Next Due Pneumococcal Conjugate PCV13 07/06/2014 Tdap 04/29/2007 Social History Tobacco Use Types Packs/Day Years Used Date Smoking Tobacco: Former Alcohol Use Standard Drinks/Week Comments Yes 0 (1 standard drink = 0.6 oz pur e alcohol) Sex and Gender Information Value Date Recorded Sex Assigned at Not on file Gender Identity Not on file Sexual Orientation Not on file Job Start Date Occupation Industry Not on file Not on file Not on file Last Filed Vital Signs Vital Sign Reading Time Taken Comments Blood Pressure 145/67 08/27/2018 5:10 PM EDT Pulse 77 08/27/2018 5:10 PM EDT Temperature 36.7 ??C (98.1 ??F) 08/27/2018 5:10 PM ED T Respiratory Rate 16 08/27/2018 5:10 PM EDT Oxygen Saturation 99% 08/27/2018 5:10 PM EDT Inhaled Oxygen Concentration - - Weight 120.2 kg (265 lb) 08/27/2018 5:10 PM EDT Height 160 cm (5' 3 ) 08/27/2018 5:10 PM EDT Body Mass Index 46.94 08/27/2018 5:10 PM EDT Plan of Treatment Health Maintenance Due Date Last Done Comments Hepatitis B Vaccines (1 of 3 - 3-dose series) 1968 Hepatitis C Screening 1968 COVID-19 Vaccine (#1) 06/10/1969 Depression Screening 1980 BMI Counseling 1986 Preventative Health Evaluation 1986 Cervical Cancer Screening (P ap Smear) 1989 Colon Cancer Screening (Colonoscopy) 2013 Pneumococcal Vaccine (2 of 2 - PPSV23 or PCV20) 08/31/2014 07/06/2014 DTap / Tdap / Td (2 - Td or Tdap) 04/29/2017 008 Breast Cancer Screening (Mammogram) 2018 Shingrix-Zoster Vaccine (1 of 2) 2018 Influenza Vaccine (#1) 2023 RSV Ped < 20 months Aged Out No longe r eligible based on patient's age to complete this topic Care Teams Electric Frying Pan Repairer Relationship Specialty Start Date End Date Telma Foster APRN [address] [place] [address] PCP - General Unknown Physician Specialty 07/19/17
--- OUTSIDE RECORDS SUMMARY | 2024-07-01 16:52 | XMS_ITS | Encounter Summary ---
Author Organization [facility] Address [address] [place] [address] Care Team Providers Care Foundry Operator Name Role Phone Telma Foster APRN Primary Care Provider [phone] Pcp, No Primary Care Provider Clarisse Parker APRN Primary Care Provider [phone] Reason for Visit * Reason Comments Medication Refill Encounter Details Date Type Department Care Team (Late st Contact Info) Description 09/15/2017 Refill [facility] 100 [facility] [address] [place] [address] Telma Foster APRN [address] [id number] Benign essential HTN Social History Tobacco Use [...] HTN documented in this encounter Care Teams Foundry Operator Relationship Specialty Start Date End Date Telma Foster APRN [address] [facility] [address] [place] [address] PCP - General Family Medicine 08/14/17 12/21/18 Pcp, No PCP - General General Medicine 12/22/18 03/19/22 Clarisse Downey APRN [address] [place] [address] PCP - General 03/20/22 06/18/22 documented as of this encounter
--- OUTSIDE RECORDS SUMMARY | 2024-07-01 16:52 | XMS_ITS | Encounter Summary ---
Author Organization [facility] Address [address] [place] [address] Care Team Providers Care Master Brewer Name Role Phone Kareen Caldwell MD Primary Care Provider Reason for Referral * Consultation (Urgent) - Pending Review Specialty Diagnoses / Procedures Referred By Matthias t Referred To Contact Cardiology Diagnoses Dyspnea on exertion Atrial fibrillation, unspecified type (CMS/HCC V24, CMS/HCC V28) Low left ventricular ejection fraction Kareen Caldwell MD [address] [place] [address] Phone: tel: fax: Madi Rasheed MD [address] [place] [address] Phone: tel: fax: Referral ID Status Reason Start Date Expiration Date Visits Requested Visits Authorized [id number] Pending Review Specialty Services Required 06/30/2024 06/30/2025 4 4 * Cardiac Stress Testing (Routine) - Pending Review Specialty Diagnoses / Procedures Referred By Contac t Referred To Contact Cardiology Diagnoses Dyspnea on exertion Atrial fibrillation, unspecified type (CMS/HCC V24, CMS/HCC V28) Procedures Cardiac holter monitor (<= 48 hours) [address] ECG EXTERNAL UP TO [address] ECG EXTERNAL < 48 HOURS CONTINUOUS RECORDING/STORAGE R&I BY A PHYS/QHP CT EXTERNAL ECG UP TO 48 HRS INCL RECORDING SCANNING ANLYS W REPORT Kareen Caldwell MD [address] [place] [address] Phone: tel: fax: [facility] Referral ID Status Reason Start Date Expiration Date V isits Requested Visits Authorized [id number] Pending Review 06/30/2024 06/30/2025 1 1 Encounter Details Date Type Department Care Team (Late st Contact Info) Description 06/30/2024 Telephone [facility] - [address] [place] [address] Tootie Fields NP [address] [place], [place] [id number] Social History Tobacco Use Types Packs/Day Years Used Date Smoking Tobacco: Former Cigarettes Q uit: 03/11/2021 Smokeless Tobacco: Never Alcohol Use Standard Drinks/Week Comments Yes 0 [...] ed Within the last 3 months, ho keila many times did you visit the emergency [...] for your loved ones. For example, child day care provider or elderly care for an older adult? [...] on file documented as of this encounter Ordered Prescriptions Prescription Sig Dispense Quantity Refills Last Filled Start Date End Date apixaban (Eliquis) 5 mg tabletIndications:A trial fibrillation, unspecified type (CMS/HCC V24, CMS/HCC V28) Take 1 tablet (5 mg total) by mouth 2 (two) times a day. 180 tablet 1 06/30/2024 documented in this encounter Progress Notes * Nhi Eaton - 07/01/2024 8:19 AM EDT New Patient Previous appointment scheduled with Dr Webber on 2024 at 2:30 PM. I spokewith Delores and confirmed the appointment. Appointment reminder mailed. Per N'Danielle we are no longerbooking new patient previous appointments with Dr Rasheed. * Kareen Caldwell MD - 06/30/2024 4:20 PM EDT I spoke with pt, She will stop by for labs tomorrow. 24hr holter and referral to entered. Script for eliquis 5mg bid has been sent. Pt aware to stop aspirin. Thanks. * Tootie Fields NP - 06/30/2024 4:03 PM EDT Notified by [employer] that the patient's LVEF is estimated to be in the 35% range. She has no symptoms at rest, but does have very easily induced breathlessness on exertion. She has been taking her metoprolol again as directed. Consultation request has been placed by her PCP, we will expedite her evaluation. She did see Dr. Rasheed back in 2020. Will try to get her back into see him quickly. Her symptoms started back in November or so with breathlessness on exertion. We discussed atrial fibrillation. In order to consider cardioversion, which is likely long as the first steps for her in improving her symptoms and heart function, she would need full anticoagulation. We discussed how aspirin is insufficient for this. I discussed apixaban with her, which should be covered by her insurance. Given that she is no longer an established patient with our practice though, Dr. Caldwell, would you please consider apixaban 5 mg twice daily? She can discontinue her aspirin if she starts full anticoagulation We would also recommend a Holter monitor to follow her 24-hour heart rate if her PCP agrees. She will get her labs as ordered by her PCP tomorrow. I am particularly interested in her thyroid function as she has had prior thryoid procedures. Sent to scheduling team to expedite visit, separate message sent to PCP as well. Thank you all!!! documented in this encounter Plan of Treatment Upcoming Encounters Date Type Department Care Team (Late st Contact Info) Description 07/10/2024 2:30 PM EDT Office Visit [facility] [address] [place] [address] Destiny Webber MD [address] [place] [address] [address] [place] [address] 10/29/2024 9:00 AM EDT Office Visit [facility] [place] [address] [place] [id number] Mike Talbert PA [address] [place] [address] Scheduled Orders Name Type Priority Associated Diagnoses Orde r Schedule Cardiac holter monitor (<= 48 hours) Cardiac Services Routine Dyspnea on exertion Atrial fibrillation, unspecified type (CMS/HCC V24, CMS/HCC V28) Expected: 06/30/2024 (Approximate), Expires: 06/30/2025 Scheduled Referrals Name Type Priority Associated Diagnoses Orde r Schedule Ambulatory referral to Cardiology Outpatient Referral Routine Dyspnea on exertion Atrial fibrillation, unspecified type (CMS/HCC V24, CMS/HCC V28) Low left ventricular ejection fraction Expected: 06/30/2024 (Approximate), Expires: 06/30/2025 documented as of this encounter Visit Diagnoses Diagnosis Dyspnea on exertion- Primary Other dyspnea and respiratory abnormality Atrial fibrillation, unspecified type (CMS/HCC V24, CMS/HCC V28) Low left ventricular ejection fraction documented in this encounter Additional Health Concerns Assessment Noted Time PHQ-9 Depression Total Score: 6 06/16/19 25 12:18 PM EDT documented as of this encounter Care Teams Master Brewer Relationship Specialty Start Date End Date Kareen Caldwell MD [address] [place] [address] PCP - General Internal Medicine 03/24/24 documented as of this encounter
--- OUTSIDE RECORDS SUMMARY | 2024-07-01 16:52 | XMS_ITS | Encounter Summary ---
Author Organization [facility] Address [address] [place] [address] Care Team Providers Care Supplier Development Manager Name Role Phone Telma Foster APRN Primary Care Provider [phone] Pcp, No Primary Care Provider Clarisse Parker APRN Primary Care Provider [phone] Reason for Visit * Reason Comments Medication Refill Encounter Details Date Type Department Care Team (Late st Contact Info) Description 01/12/2018 Refill [facility] [address] [place] [phone] Telma Foster APRN [address] [place] [address] Plantar fasciitis of right foot; Acute pain of left knee Social History Tobacco Use Types Packs/Day Years [...] on file documented as of this encounter Miscellaneous Notes * Telephone Encounter - Galina Maloney LPN - 01/13/2018 12:31 PM EST Last refill 12-09-2017 #30 Last Visit 09-25-2017 Next Appointment 03-25-2018 documented in this encounter Plan of Treatment Not on file documented as of this encounter Visit Diagnoses Diagnosis Plantar fasciitis of right foot Acute pain of left knee documented in this encounter Care Teams Supplier Development Manager Relationship Specialty Start Date End Date Telma Foster APRN [address] [place] [address] PCP - General Family Medicine 08/14/17 12/21/18 Pcp, No PCP - General General Medicine 12/22/18 03/19/22 Clarisse Downey APRN [address] [address] PCP - General 03/20/22 06/18/22 documented as of this encounter
--- OUTSIDE RECORDS SUMMARY | 2024-07-01 16:52 | XMS_ITS | Encounter Summary ---
Author Organization [facility] Address [address] [place] [address] Care Team Providers Care Adult High School Instructor Name Role Phone Telma Foster APRN Primary Care Provider [phone] Pcp, No Primary Care Provider Clarisse Parker APRN Primary Care Provider [phone] Encounter Details Date Type Department Care Team (Late st Contact Info) Description 03/26/2018 Scanned Document [address] [place] [address] Provider, Generic Social History Tobacco [...] on filedocumented in this encounter Care Teams Adult High School Instructor Relationship Specialty Start Date End Date Telma Foster APRN [address] [place], [place] [address] PCP - General Family Medicine 08/14/17 12/21/18 Pcp, No PCP - General General Medicine 12/22/18 03/19/22 Clarisse Downey APRN [address] [place] [address] [place] [address] PCP - General 03/20/22 06/18/22 documented as of this encounter
--- OUTSIDE RECORDS SUMMARY | 2024-07-01 16:52 | XMS_ITS | Encounter Summary ---
Author Organization [facility] Address [address] [place] [address] Care Team Providers Care Wireworker Name Role Phone Telma Foster APRN Primary Care Provider [phone] Pcp, No Primary Care Provider Clarisse Parker APRN Primary Care Provider [phone] Encounter Details Date Type Department Care Team (Late st Contact Info) Description 12/19/2017 Scanned Document [address] [place] [address] Provider, Generic Social History Tobacco [...] on filedocumented in this encounter Care Teams Wireworker Relationship Specialty Start Date End Date Telma Foster APRN [address] [place], [place] [address] PCP - General Family Medicine 08/14/17 12/21/18 Pcp, No PCP - General General Medicine 12/22/18 03/19/22 Clarisse Downey APRN [address] [place] [address] [place] [address] PCP - General 03/20/22 06/18/22 documented as of this encounter
--- OUTSIDE RECORDS SUMMARY | 2024-07-01 16:52 | XMS_ITS | Encounter Summary ---
Author Organization [facility] Address [address] [place] [address] Care Team Providers Care Vault Cashier Name Role Phone Telma Foster APRN Primary Care Provider [phone] Pcp, No Primary Care Provider Clarisse Parker APRN Primary Care Provider [phone] Reason for Visit * Reason Comments Medication Refill Encounter Details Date Type Department Care Team (Late st Contact Info) Description 05/29/2018 Refill [facility] 100 [facility] [address] [place] [address] Telma Foster APRN [address] [place] [address] Right medial knee pain (Primary Dx); Benign essential HTN Social History Tobacco Use [...] encounter Miscellaneous Notes * Telephone Encounter - Telma Foster APRN - 05/30/2018 9:16 AM EDT Needs an appointment * Telephone Encounter - Galina Maloney LPN - 05/29/2018 9:35 AM EDT Last refill 12-09-2017 #30 Last Visit 09-25-2017 No Upcoming Appointments documented in this encounter Plan of Treatment Not on file documented as of this encounter Visit Diagnoses Diagnosis Right medial knee pain- Primary Benign essential HTN documented in this encounter Care Teams Vault Cashier Relationship Specialty Start Date End Date Telma Foster APRN [address] [place] [address] PCP - General Family Medicine 08/14/17 12/21/18 Pcp, No PCP - General General Medicine 12/22/18 03/19/22 Clarisse Downey APRN [address] [address] PCP - General 03/20/22 06/18/22 documented as of this encounter
--- OUTSIDE RECORDS SUMMARY | 2024-07-01 16:52 | XMS_ITS | Encounter Summary ---
Author Organization [facility] Address [address] [place] [address] Care Team Providers Care Ceramist Name Role Phone Telma Foster APRN Primary Care Provider [phone] Pcp, No Primary Care Provider Clarisse Parker APRN Primary Care Provider [phone] Encounter Details Date Type Department Care Team (Late st Contact Info) Description 12/05/2018 Scanned Document [address] [place] [address] Provider, Generic Social History Tobacco [...] on filedocumented in this encounter Care Teams Ceramist Relationship Specialty Start Date End Date Telma Foster APRN [address] [place], [place] [address] PCP - General Family Medicine 08/14/17 12/21/18 Pcp, No PCP - General General Medicine 12/22/18 03/19/22 Clarisse Downey APRN [address] [place] [address] [place] [address] PCP - General 03/20/22 06/18/22 documented as of this encounter
--- OUTSIDE RECORDS SUMMARY | 2024-07-01 16:52 | XMS_ITS | Encounter Summary ---
Author Organization [facility] Address [address] [place] [address] Care Team Providers Care Electronics Repair Technician Name Role Phone Pcp, No Primary Care Provider Clarisse Parker APRN Primary Care Provider [phone] Reason for Visit * Reason Comments Medication Refill Encounter Details Date Type Department Care Team (Late st Contact Info) Description 02/18/2019 Refill [facility] 100 [facility] 101 [place] [address] Telma Foster APRN 100 [facility] [address] [place] [address] Benign essential HTN Social History Tobacco Use [...] HTN documented in this encounter Care Teams Electronics Repair Technician Relationship Specialty Start Date End Date Pcp, No PCP - General General Medicine 12/22/18 03/19/22 Clarisse Downey APRN [address] [address] PCP - General 1/10/23 4/10/23 documented as of this encounter
--- OUTSIDE RECORDS SUMMARY | 2024-07-01 16:53 | XMS_ITS | Encounter Summary ---
Author Organization [facility] Address [address] [place] [address] Care Team Providers Care Upholstered Goods Crafter Name Role Phone Stephanie Mcmanus Primary Care Provider [phone] Homar Nixon MD Primary Care Provider [phone] Telma Foster APRN Primary Care Provider [phone] Pcp, No Primary Care Provider Clarisse Parker APRN Primary Care Provider + [phone] Reason for Visit * Reason Comments Medication Refill Encounter Details Date Type Department Care Team (Late st Contact Info) Description 06/05/[address] [place] [address] Telma Foster APRN [address] [address] Benign essential HTN Social History Tobacco Use [...] HTN documented in this encounter Care Teams Upholstered Goods Crafter Relationship Specialty Start Date End Date Stephanie Mcmanus PA PCP - General Internal Medicine 04/03/16 06/23/17 Homar Nixon MD PCP - General Internal Medicine 06/24/17 08/13/17 Telma Foster APRN [address] [facility] [address] [place] [address] PCP - General Family Medicine 08/14/17 12/21/18 Pcp, No PCP - General General Medicine 12/22/18 03/19/22 Clarisse Downey APRN [address] [address] PCP - General 03/20/22 06/18/22 documented as of this encounter
--- OUTSIDE RECORDS SUMMARY | 2024-07-01 16:53 | XMS_ITS | Encounter Summary ---
Author Organization [address] [address] Care Team Providers Care Cafe Site Attendant Name Role Phone Stephanie Mcmanus Primary Care Provider [phone] Homar Nixon MD Primary Care Provider [phone] Telma Foster APRN Primary Care Provider [phone] Pcp, No Primary Care Provider Clarisse Parker APRN Primary Care Provider + [phone] Encounter Details Date Type Department Care Team (Late st Contact Info) Description 03/28/2017 Scanned Document [address] [address] Provider, Generic Social History Tobacco Use [...] on filedocumented in this encounter Care Teams Cafe Site Attendant Relationship Specialty Start Date End Date Stephanie Mcmanus PA PCP - General Internal Medicine 04/03/16 06/23/17 Homar Nixon MD PCP - General Internal Medicine 06/24/17 08/13/17 Telma Foster APRN [address] [facility] [address] [place] [address] PCP - General Family Medicine 08/14/17 12/21/18 Pcp, No PCP - General General Medicine 12/22/18 03/19/22 Clarisse Downey APRN [address] [address] PCP - General 03/20/22 06/18/22 documented as of this encounter
--- OUTSIDE RECORDS SUMMARY | 2024-07-01 16:53 | XMS_ITS | Encounter Summary ---
Author Organization [address] [address] Care Team Providers Care Board Certified Family Physician Name Role Phone Stephanie Mcmanus Primary Care Provider [phone] Homar Nixon MD Primary Care Provider [phone] Telma Foster APRN Primary Care Provider [phone] Pcp, No Primary Care Provider Clarisse Parker APRN Primary Care Provider + [phone] Encounter Details Date Type Department Care Team (Late st Contact Info) Description 04/15/2017 Scanned Document [address] [address] Provider, Generic Social History Tobacco [...] on filedocumented in this encounter Care Teams Board Certified Family Physician Relationship Specialty Start Date End Date Stephanie Mcmanus PA PCP - General Internal Medicine 04/03/16 06/23/17 Homar Nixon MD PCP - General Internal Medicine 06/24/17 08/13/17 Telma Foster APRN [address] [facility] [address] [place] [address] PCP - General Family Medicine 08/14/17 12/21/18 Pcp, No PCP - General General Medicine 12/22/18 03/19/22 Clarisse Downey APRN [address] [address] PCP - General 03/20/22 06/18/22 documented as of this encounter
--- OUTSIDE RECORDS SUMMARY | 2024-07-01 16:53 | XMS_ITS | Encounter Summary ---
Author Organization [facility] Address [address] [place] [address] Care Team Providers Care Swing Saw Operator Name Role Phone Clarisse Downey APRN Primary Care Provider +- [phone] Stephnaie Mcmanus Primary Care Provider + [phone] Homar Nixon MD Primary Care Provider +[phone] Telma Foster APRN Primary Care Provider [phone] Pcp, No Primary Care Provider Clarisse Parker APRN Primary Care Provider +- [phone] Encounter Details Date Type Department Care Team (Late st Contact Info) Description 03/17/2016 Scanned Document [address] [phone] Provider, Generic Social History Tobacco Use Types Packs/Day Years Used Date Smoking Tobacco: Never Assessed Comments No Sex and Gender Information Value Date Recorded Sex Assigned at Not on file Legal Sex Female 11:22 AM EDT Gender Identity Not on file Sexual Orientation Not on file documented as of this encounter Plan of Treatment Not on file documented as of this encounter Procedures Procedure Name Priority Date/Time Associated Diagnosis Comments LAB RESULT 03/17/2016 documented in this encounter Results * LAB RESULT (03/17/2016) Narrative 03/17/2016 Ordered by an unspecified provider. us Generic Provider HX AMB PROCEDURES Edited Result - Final documented in this encounter Visit Diagnoses Not on filedocumented in this encounter Care Teams Swing Saw Operator Relationship Specialty Start Date End Date Clarisse Downey APRN PCP - General 02/23/16 04/02/16 Stephanie Mcmanus PA PCP - General Internal Medicine 04/03/16 06/23/17 Homar Nixon MD PCP - General Internal Medicine 06/24/17 08/13/17 Telma Foster APRN [address] [facility] [address] [place] [address] PCP - General Family Medicine 08/14/17 12/21/18 Pcp, No PCP - General General Medicine 12/22/18 03/19/22 Clarisse Downey APRN [address] [place] [address] PCP - General 03/20/22 06/18/22 documented as of this encounter
--- OUTSIDE RECORDS SUMMARY | 2024-07-01 16:53 | XMS_ITS | Encounter Summary ---
Author Organization [facility] Address [address] [place] [address] Care Team Providers Care Cable Driller Name Role Phone Stephanie Mcmanus Primary Care Provider + [phone] Homar Nixon MD Primary Care Provider +[phone] Telma Foster APRN Primary Care Provider [phone] Pcp, No Primary Care Provider Clarisse Parker APRN Primary Care Provider + [phone] Reason for Visit * Reason Comments Medication Refill Encounter Details Date Type Department Care Team (Late st Contact Info) Description 04/06/[address] [place] [phone] Stephanie Mcmanus PA [address] [place] [address] Benign essential HTN; Plantar fasciitis of right foot; Acute pain [...] encounter Visit Diagnoses Diagnosis Benign essential HTN Plantar fasciitis of right foot Acute pain of left knee documented in this encounter Care Teams Cable Driller Relationship Specialty Start Date End Date Stephanie Mcmanus PA PCP - General Internal Medicine 04/03/16 06/23/17 Homar Nixon MD PCP - General Internal Medicine 06/24/17 08/13/17 Telma Foster APRN [address] [place] [address] PCP - General Family Medicine 08/14/17 12/21/18 Pcp, No PCP - General General Medicine 12/22/18 03/19/22 Clarisse Downey APRN [address] [place] [address] PCP - General 03/20/22 06/18/22 documented as of this encounter
--- OUTSIDE RECORDS SUMMARY | 2024-07-01 16:53 | XMS_ITS | Encounter Summary ---
Author Organization [address] [address] Care Team Providers Care Pickling Operator Name Role Phone Stephanie Mcmanus Primary Care Provider + [phone] Homar Nixon MD Primary Care Provider +[phone] Telma Foster APRN Primary Care Provider [phone] Pcp, No Primary Care Provider Clarisse Parker APRN Primary Care Provider + [phone] Encounter Details Date Type Department Care Team (Late st Contact Info) Description 04/06/2017 Scanned Document [address] [phone] Provider, Generic Social History Tobacco [...] on filedocumented in this encounter Care Teams Pickling Operator Relationship Specialty Start Date End Date Stephanie Mcmanus PA PCP - General Internal Medicine 04/03/16 06/23/17 Homar Nixon MD PCP - General Internal Medicine 06/24/17 08/13/17 Telma Foster APRN [address] [facility] 101 [place] [address] PCP - General Family Medicine 08/14/17 12/21/18 Pcp, No PCP - General General Medicine 12/22/18 03/19/22 Clarisse Downey APRN [address] [address] PCP - General 03/20/22 06/18/22 documented as of this encounter
--- OUTSIDE RECORDS SUMMARY | 2024-07-01 16:53 | XMS_ITS | Encounter Summary ---
Author Organization [facility] Address [address] [place] [address] Care Team Providers Care Milk Treater Name Role Phone Clarisse Downey APRN Primary Care Provider + [phone] Stephanie Mcmanus Primary Care Provider + [phone] Homar Nixon MD Primary Care Provider [phone] Telma Foster APRN Primary Care Provider [phone] Pcp, No Primary Care Provider Clarisse Parker APRN Primary Care Provider + [phone] Clarisse Downey APRN Primary Care Provider + [phone] Encounter Details Date Type Department Care Team (Late st Contact Info) Description 02/10/2016 Scanned Document [address] [place] [phone] Provider, Generic Social History Tobacco Use [...] on filedocumented in this encounter Care Teams Milk Treater Relationship Specialty Start Date End Date Clarisse Downey APRN PCP - General 02/23/16 04/02/16 Stephanie Mcmanus PA PCP - General Internal Medicine 04/03/16 06/23/17 Homar Nixon MD PCP - General Internal Medicine 06/24/17 08/13/17 Telma Foster APRN [address] [facility] [address] [place] [address] PCP - General Family Medicine 08/14/17 12/21/18 Pcp, No PCP - General General Medicine 12/22/18 03/19/22 Clarisse Downey APRN [address] [address] PCP - General 02/22/16 Clarisse Downey APRN [address] [address] PCP - General 03/20/22 06/18/22 documented as of this encounter
--- OUTSIDE RECORDS SUMMARY | 2024-07-01 16:53 | XMS_ITS | Encounter Summary ---
Author Organization [facility] Address [address] [place] [address] Care Team Providers Care Scanning Coordinator Name Role Phone Stephanie Mcmanus Primary Care Provider + [phone] Homar Nixon MD Primary Care Provider +[phone] Telma Foster APRN Primary Care Provider [phone] Pcp, No Primary Care Provider Clarisse Parker APRN Primary Care Provider + [phone] Reason for Visit * Reason Comments Medication Refill Encounter Details Date Type Department Care Team (Late st Contact Info) Description 02/26/[address] [place] [phone] Stephanie Mcmanus PA [address] [place] [address] Plantar fasciitis of right foot; Acute pain of left knee; Benign essential HTN Social History Tobacco Use [...] right foot Acute pain of left knee Benign essential HTN documented in this encounter Care Teams Scanning Coordinator Relationship Specialty Start Date End Date Stephanie Mcmanus PA PCP - General Internal Medicine 04/03/16 06/23/17 Homar Nixon MD PCP - General Internal Medicine 06/24/17 08/13/17 Telma Foster APRN [address] [place] [address] PCP - General Family Medicine 08/14/17 12/21/18 Pcp, No PCP - General General Medicine 12/22/18 03/19/22 Clarisse Downey APRN [address] [place] [address] PCP - General 03/20/22 06/18/22 documented as of this encounter
--- OUTSIDE RECORDS SUMMARY | 2024-07-01 16:53 | XMS_ITS | Encounter Summary ---
Author Organization [address] [address] Care Team Providers Care Cork Wirer Name Role Phone Stephanie Mcmanus Primary Care Provider + [phone] Homar Nixon MD Primary Care Provider [phone] Telma Foster APRN Primary Care Provider [phone] Pcp, No Primary Care Provider Clarisse Parker APRN Primary Care Provider + [phone] Encounter Details Date Type Department Care Team (Late st Contact Info) Description 04/20/2016 Scanned Document [address] [phone] Provider, Generic Social History Tobacco Use Types Packs/Day Years Used Date Smoking Tobacco: Former Smokeless Tobacco: Never Alcohol Use Standard Drinks/Week [...] Priority Date/Time Associated Diagnosis Comments LAB RESULT 04/23/2016 documented in this encounter Results * LAB RESULT (04/23/2016) Narrative 04/23/2016 Ordered by an unspecified provider. us Generic Provider HX AMB PROCEDURES Edited Result - Final documented in this encounter Visit Diagnoses Not on filedocumented in this encounter Care Teams Cork Wirer Relationship Specialty Start Date End Date Stephanie Mcmanus PA PCP - General Internal Medicine 04/03/16 06/23/17 Homar Nixon MD PCP - General Internal Medicine 06/24/17 08/13/17 Telma Foster APRN [address] [place] [address] PCP - General Family Medicine 08/14/17 12/21/18 Pcp, No PCP - General General Medicine 12/22/18 03/19/22 Clarisse Downey APRN [address] [place] [address] PCP - General 03/20/22 06/18/22 documented as of this encounter
--- OUTSIDE RECORDS SUMMARY | 2024-07-01 16:53 | XMS_ITS | Encounter Summary ---
Author Organization [facility] Address [address] [place] [address] 7 [place] [address] Care Team Providers Care Coin Teller Name Role Phone Unavailable Primary Care Provider Unavailabl e Encounter Details Date Type Department Care Team (Latest Contact Info) Description 03/16/2022 Abstract Social History Tobacco Use Types Packs/Day Years Used Date Smoking Tobacco: Never Assessed Smokeless Tobacco: Current Comments Unknown Sex and Gender Information Value Date Recorded Sex Assigned at Female 01/08/2022 10:38 AM EDT Legal Sex Female 10:38 AM EDT Gender Identity Female 01/08/2022 10:38 AM EDT Sexual Orientation Don't know 04/24/2022 2: 25 PM EST Sexual Orientation Straight 04/24/2022 2: 25 PM EST COVID-19 Exposure Response Date Recorded In the last 10 days, have yo u been in contact with someone who was confirmed or suspected to have Coronavirus/COVID-19? No / Unsure 03/16/2022 1:02 PM EST documented as of this encounter Plan of Treatment Not on file documented as of this encounter Visit Diagnoses Not on filedocumented in this encounter
--- OUTSIDE RECORDS SUMMARY | 2024-07-01 16:53 | XMS_ITS | Encounter Summary ---
Author Organization [facility] Address [address] [place] [address] Care Team Providers Care Sap Security Architect Name Role Phone Homar Nixon MD Primary Care Provider [phone] Telma Foster APRN Primary Care Provider [phone] Pcp, No Primary Care Provider Clarisse Parker APRN Primary Care Provider +- [phone] Encounter Details Date Type Department Care Team (Late st Contact Info) Description 07/19/2017 Scanned Document [address] [place] [phone] Provider, Generic Social History Tobacco [...] on filedocumented in this encounter Care Teams Sap Security Architect Relationship Specialty Start Date End Date Homar Nixon MD PCP - General Internal Medicine 06/24/17 08/13/17 Telma Foster APRN [address] [place] [address] PCP - General Family Medicine 08/14/17 12/21/18 Pcp, No PCP - General General Medicine 12/22/18 03/19/22 Clarisse Downey APRN [address] [place] [address] PCP - General 03/20/22 06/18/22 documented as of this encounter
--- OUTSIDE RECORDS SUMMARY | 2024-07-01 16:53 | XMS_ITS | Encounter Summary ---
Author Organization [facility] Address [address] [place] [address] Care Team Providers Care Side Door Worker Name Role Phone Homar Nixon MD Primary Care Provider [phone] Telma Foster APRN Primary Care Provider [phone] Pcp, No Primary Care Provider Clarisse Parker APRN Primary Care Provider +- [phone] Encounter Details Date Type Department Care Team (Late st Contact Info) Description 07/04/2017 Scanned Document [address] [place] [phone] Provider, Generic Social History Tobacco [...] on filedocumented in this encounter Care Teams Side Door Worker Relationship Specialty Start Date End Date Homar Nixon MD PCP - General Internal Medicine 06/24/17 08/13/17 Telma Foster APRN [address] [place] [address] PCP - General Family Medicine 08/14/17 12/21/18 Pcp, No PCP - General General Medicine 12/22/18 03/19/22 Clarisse Downey APRN [address] [place] [address] PCP - General 03/20/22 06/18/22 documented as of this encounter
--- OUTSIDE RECORDS SUMMARY | 2024-07-01 16:53 | XMS_ITS | Encounter Summary ---
Author Organization [address] [address] Care Team Providers Care Ultrasonic Solderer Name Role Phone Stephanie Mcmanus Primary Care Provider + [phone] Homar Nixon MD Primary Care Provider +[phone] Telma Foster APRN Primary Care Provider [phone] Pcp, No Primary Care Provider Clarisse Parker APRN Primary Care Provider + [phone] Encounter Details Date Type Department Care Team (Late st Contact Info) Description 04/06/2017 Scanned Document [address] [phone] Provider, Generic Social History Tobacco [...] on filedocumented in this encounter Care Teams Ultrasonic Solderer Relationship Specialty Start Date End Date Stephanie Mcmanus PA PCP - General Internal Medicine 04/03/16 06/23/17 Homar Nixon MD PCP - General Internal Medicine 06/24/17 08/13/17 Telma Foster APRN [address] [email or web address] [address] [place] [address] PCP - General Family Medicine 08/14/17 12/21/18 Pcp, No PCP - General General Medicine 12/22/18 03/19/22 Clarisse Downey APRN [address] [address] PCP - General 03/20/22 06/18/22 documented as of this encounter
--- OUTSIDE RECORDS SUMMARY | 2024-07-01 16:53 | XMS_ITS | Encounter Summary ---
Author Organization [address] [address] Care Team Providers Care Travel Agency Manager Name Role Phone Stephanie Mcmanus Primary Care Provider + [phone] Homar Nixon MD Primary Care Provider [phone] Telma Foster APRN Primary Care Provider [phone] Pcp, No Primary Care Provider Clarisse Parker APRN Primary Care Provider + [phone] Encounter Details Date Type Department Care Team (Late st Contact Info) Description 11/19/2016 Scanned Document [address] [phone] Provider, Generic Social History Tobacco [...] on filedocumented in this encounter Care Teams Travel Agency Manager Relationship Specialty Start Date End Date Stephanie Mcmanus PA PCP - General Internal Medicine 04/03/16 06/23/17 Homar Nixon MD PCP - General Internal Medicine 06/24/17 08/13/17 Telma Foster APRN [address] [facility] 101 [place] [address] PCP - General Family Medicine 08/14/17 12/21/18 Pcp, No PCP - General General Medicine 12/22/18 03/19/22 Clarisse Downey APRN [address] [address] PCP - General 03/20/22 06/18/22 documented as of this encounter
--- OUTSIDE RECORDS SUMMARY | 2024-07-01 16:53 | XMS_ITS | Encounter Summary ---
Author Organization [address] [address] Care Team Providers Care Nut Steamer Name Role Phone Stephanie Mcmanus Primary Care Provider + [phone] Homar Nixon MD Primary Care Provider +[phone] Telma Foster APRN Primary Care Provider [phone] Pcp, No Primary Care Provider Clarisse Parker APRN Primary Care Provider + [phone] Encounter Details Date Type Department Care Team (Late st Contact Info) Description 07/30/2016 Scanned Document [address] [phone] Provider, Generic Social History Tobacco [...] on filedocumented in this encounter Care Teams Nut Steamer Relationship Specialty Start Date End Date Stephanie Mcmanus PA PCP - General Internal Medicine 04/03/16 06/23/17 Homar Nixon MD PCP - General Internal Medicine 06/24/17 08/13/17 Telma Foster APRN [address] [facility] 101 [place] [address] PCP - General Family Medicine 08/14/17 12/21/18 Pcp, No PCP - General General Medicine 12/22/18 03/19/22 Clarisse Downey APRN [address] [address] PCP - General 03/20/22 06/18/22 documented as of this encounter
--- OUTSIDE RECORDS SUMMARY | 2024-07-01 16:53 | XMS_ITS | Encounter Summary ---
Author Organization [facility] Address [address] [place] [address] Care Team Providers Care Curb Attendant Name Role Phone Stephanie Mcmanus Primary Care Provider + [phone] Homar Nixon MD Primary Care Provider +[phone] Telma Foster APRN Primary Care Provider [phone] Pcp, No Primary Care Provider Clarisse Parker APRN Primary Care Provider + [phone] Reason for Visit * Reason Comments Medication Refill Encounter Details Date Type Department Care Team (Late st Contact Info) Description 01/27/[address] [place] [phone] Stephanie Mcmanus PA [address] [place] [address] Benign essential HTN; Plantar fasciitis of right [...] knee documented in this encounter Care Teams Curb Attendant Relationship Specialty Start Date End Date Stephanie Mcmanus PA PCP - General Internal Medicine 04/03/16 06/23/17 Homar Nixon MD PCP - General Internal Medicine 06/24/17 08/13/17 Telma Foster APRN [address] [place] [address] PCP - General Family Medicine 08/14/17 12/21/18 Pcp, No PCP - General General Medicine 12/22/18 03/19/22 Clarisse Downey APRN [address] [place] [address] PCP - General 03/20/22 06/18/22 documented as of this encounter
--- OUTSIDE RECORDS SUMMARY | 2024-07-01 16:53 | XMS_ITS | Encounter Summary ---
Author Organization [facility] Address [address] [place] [address] Care Team Providers Care Public Records Researcher Name Role Phone Clarisse Downey APRN Primary Care Provider + [phone] Stephanie Mcmanus Primary Care Provider + [phone] Homar Nixon MD Primary Care Provider [phone] Telma Foster APRN Primary Care Provider [phone] Pcp, No Primary Care Provider Clarisse Parker APRN Primary Care Provider + [phone] Clarisse Downey APRN Primary Care Provider + [phone] Encounter Details Date Type Department Care Team (Late st Contact Info) Description 03/31/2015 Scanned Document [address] [place] [phone] Provider, Generic Social History Tobacco Use [...] Priority Date/Time Associated Diagnosis Comments LAB RESULT 03/31/2015 documented in this encounter Results * LAB RESULT (03/31/2015) Narrative 03/31/2015 Ordered by an unspecified provider. us Generic Provider HX AMB PROCEDURES Edited Result - Final documented in this encounter Visit Diagnoses Not on filedocumented in this encounter Care Teams Public Records Researcher Relationship Specialty Start Date End Date Clarisse Downey APRN PCP - General 02/23/16 04/02/16 Stephanie Mcmanus PA PCP - General Internal Medicine 04/03/16 06/23/17 Homar Nixon MD PCP - General Internal Medicine 06/24/17 08/13/17 Telma Foster APRN [address] [place] [address] PCP - General Family Medicine 08/14/17 12/21/18 Pcp, No PCP - General General Medicine 12/22/18 03/19/22 Clarisse Downey APRN [address] [address] PCP - General 02/22/16 Clarisse Downey APRN [address] [address] PCP - General 03/20/22 06/18/22 documented as of this encounter
--- OUTSIDE RECORDS SUMMARY | 2024-07-01 16:53 | XMS_ITS | Encounter Summary ---
Author Organization [facility] Address [address] [place] [address] Care Team Providers Care Gang Bore Operator Name Role Phone Kareen Caldwell MD Primary Care Provider Reason for Visit * Imaging (Routine) - Pending Review Specialty Diagnoses / Procedures Referred By Contac t Referred To Contact Cardiology Diagnoses Type 2 diabetes mellitus with other diabetic kidney complication, without long-term current use of insulin (CMS/HCC V24, CMS/HCC V28) Essential hypertension Dyspnea on exertion Former smoker Procedures Transthoracic echocardiogram (TTE) complete with PRN contrast, bubble, strain, and 3D order panel Transthoracic echocardiogram (TTE) limited with PRN contrast, bubble, strain, and 3D order panel RI TTE W 2D IMAGE FOLLOW-UP OR LIMITED STUDY RI ECHOCARDIOGRAPY DOPPLER FOLLOW UP/LIMITED STUDY RI ECHOCARDIOGRAPHY DOPPLER COLOR FLOW MAPPING RI JENNIFER 2D FOLLOWUP/LIMITED W/CONTRAST OR W/O & W/CONTRAST RI TTE W 2D IMAGE COMPLETE W DOPPLER ECHO & COLOR FLOW DOPPLER ECHO RI JENNIFER 2D COMPLETE W/CONTRAST OR W & WO CONTRAST WITH DOPPLER Kareen Caldwell MD [address] [place] [address] Phone: tel: fax: [facility] Referral ID Status Reason Start Date Expiration Date V isits Requested Visits Authorized [id number] Pending Review 06/22/2024 06/22/2025 1 1 Encounter Details Date Type Department Care Team (Latest Contact Info) Description 06/30/2024 2:30 PM EDT Ancillary Procedure [facility] [address] [place] [address] Type 2 diabetes mellitus with other diabetic kidney complication, without long-term current use of insulin ([facility] V24, [facility]/HCC V28); Essential hypertension; Dyspnea on exertion; Former smoker Social History Tobacco Use Types Packs/Day Years [...] for your loved ones. For example, child care associate or elderly care for an older adult? [...] on file documented as of this encounter Last Filed Vital Signs Vital Sign Reading Time Taken Comments Blood Pressure 110/80 06/30/2024 2:48 PM EDT Pulse - - Temperature - - Respiratory Rate - - Oxygen Saturation - - Inhaled Oxygen Concentration - - Weight 121 kg (266 lb) 06/30/2024 2:48 PM EDT Height 160 cm (5' 3 ) 06/30/2024 2:48 PM EDT Body Mass Index 47.12 06/30/2024 2:48 PM EDT documented in this encounter Plan of Treatment Upcoming Encounters Date Type Department Care Team (Late st Contact Info) Description 07/10/2024 2:30 PM EDT Office Visit [facility] [address] [place] [address] Destiny Webber MD [address] [place] [address] [address] [place] [address] 10/29/2024 9:00 AM EDT Office Visit Adult Medicine - [place] [address] [place] [id number] Mike Talbert PA [address] [place] [address] Pending Results Name Type Priority Associated Diagnoses Date/Time Transthoracic echocardiogram (TTE) complete with PRN contrast, bubble, strain, and 3D order panel Echocardiography Routine Type 2 diabetes mellitus with other diabetic kidney complication, without long-term current use of insulin (CMS/HCC V24, CMS/HCC V28) Essential hypertension Dyspnea on exertion Former smoker 06/30/2024 3:54 PM EDT documented as of this encounter Visit Diagnoses Diagnosis Type 2 diabetes mellitus with other diabetic kidney complication, without long- term current use of insulin (CMS/HCC V24, CMS/HCC V28) Essential hypertension Unspecified essential hypertension Dyspnea on exertion Other dyspnea and respiratory abnormality Former smoker Personal history of tobacco use, presenting hazards to health documented in this encounter Administered Medications Inactive Administered Medications - up to 3 most recent administrations Medication Order MAR Action Action Date Dose Rate Site perflutren lipid microsphere (DEFINITY) 1.3 mL in sodium chloride 0.9% 8.7 mL injection 10 mL, intravenous, Administer over 10 Minutes, Once in imaging, Starting on Sat06/30/24 at 1554, For 1 dose Given 06/30/2024 3:55 PM EDT 2 mL documented in this encounter Orders Medications Ordered That Dylan ht Not Have Been Administered Count Last Ordered Date First Ordered Date perflutren lipid microsphere (DEFINITY) 1.3 mL in sodium chloride 0.9% 8.7 mL injection 1 06/30/2024 documented in this encounter Additional Health Concerns Assessment Noted Time PHQ-9 Depression Total Score: 6 06/16/19 25 12:18 PM EDT documented as of this encounter Care Teams Gang Bore Operator Relationship Specialty Start Date End Date Kareen Caldwell MD [address] [place] [address] PCP - General Internal Medicine 03/24/24 documented as of this encounter
== END 2024-07-01 14:29 | disposition home or self-care (01) ==
LOC: HO.HKA 14:03
PROVIDERS: PCP Nurse Practitioner Family; Visit Provider Internal Medicine Nephrology
DX: I10 Essential (primary) hypertension (principal)
CPT/HCPCS: 99214

== ENCOUNTER → 2024-07-01 14:02 | Outpatient (BNVA) | payer OTHER, SELFPAY | PROVIDERS: PCP Nurse Practitioner Family; Visit Provider Internal Medicine Nephrology | DX: I10 Essential (primary) hypertension (principal); Z79.899 Other long term (current) drug therapy | CPT/HCPCS: 99212 ==

== ENCOUNTER 2024-07-29 14:02 | Outpatient (AMB) | payer OTHER, SELFPAY ==
--- NOTE | 2024-07-29 14:08 | MHC.OFFVIS ---
Vital Signs 07/29/24 14:13 Height 5 ft 3 in Weight 267 lb BMI 47.3 Intake Visit Reasons: OV- LT knee pain Intake Note: Delores is a 50 year old female who presents today with complaints of left knee pain. At her last visit on 02/24/2024 she was given bilateral knee injections. Patient reports last injections provided her with relief however the past couple of weeks she has been haivng left knee pain. States her knee feels like jelly and will give out at any moment. She finds support with knee bracing. Denies injury. She complain of left ankle pain and unsure if this is related at she has been limping. Allergies seafood Allergy (Verified 07/29/24 14:13) Anaphylaxis tree nut Allergy (Verified 07/29/24 14:13) Anaphylaxis banana Adverse Reaction (Verified 07/29/24 14:13) Vomiting Seasonal Allergies Adverse Reaction (Verified 07/29/24 14:13) Sneezing sergio stings Allergy (Uncoded 07/29/24 14:13) Swelling Medication List - Last Reconciled 07/29/24 by Bonilla Belle PA-C apixaban (Eliquis) 5 mg PO BID bupropion HCl 150 mg PO DAILY cetirizine 10 mg PO DAILY cholecalciferol (vitamin D3) 50 mcg PO DAILY clotrimazole 1% 1 appl topical QAM AND QHS cyanocobalamin (vitamin B-12) 1,000 mcg PO DAILY dulaglutide (Trulicity) 0.75 mg subcut QWEEK lidocaine 5% 1 patch topical DAILY PRN lorazepam 1 mg PO DAILY PRN metoprolol tartrate 25 mg PO BID montelukast 10 mg PO DAILY pantoprazole 40 mg PO DAILY spironolactone 50 mg PO DAILY HPI HPI OV- LT knee pain: Details: 53 yo female returns to the office today for bilat knee pain. She had an injection back in02/2024 which was helpful. She feels the knee will give out at times . She has an upcoming trip to [place] and is going to be walking a lot. 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 Tenderness along the medial and lateral joint line. Full ROM with crepitus. Negative Finesse?s. No ligamentous laxity. NVI. Assessment & Plan Assessment & Plan (1) Osteoarthritis of knees, bilateral: Code(s): M17.0 - Bilateral primary osteoarthritis of knee Category: Medical Plan We discussed options today which include repeat injection which she will hold off on today as she is traveling tomorrow. She was fit for bilateral knee braces to help with stability. We also discussed the extent of her arthritis and what the end line treatment would be which may include total joint arthroplasty. I explained if she fails all conservative management and has significant limitations in daily activities we would consider that route however at this time we want to try and preserve her joint as much as possible. Patient is content with this plan. She will make an appointment in the next few weeks for injections in both knees. Coding Level of Care Code Est Pt Level 3 (38026) Complex EM visit Add On G2211 Diagnoses Osteoarthritis of knees, bilateral M17.0
[2024-07-29 14:13] VITALS: BMI 47.3
--- OUTSIDE RECORDS SUMMARY | 2024-07-29 14:31 | XMS_ITS | Encounter Summary ---
Author Organization [facility] Address [address] [place] [address] Care Team Providers Care Van Loader Name Role Phone Pcp, Spring Primary Care Provider Clarisse Parker APRN Primary Care Provider [phone] Reason for Visit * Reason Comments Medication Refill Encounter Details Date Type Department Care Team (Late st Contact Info) Description 01/15/2019 Refill [facility] [address] [facility] [address] [place] [address] Telma Foster APRN [facility] [address] [place] [address] Acute left-sided low back pain without sciatica [...] sciatica documented in this encounter Care Teams Van Loader Relationship Specialty Start Date End Date Pcp, Spring PCP - General General Medicine 12/22/18 03/19/22 Clarisse Downey APRN [address] [place] [address] [place], [place] [id number] PCP - General 03/20/22 06/18/22 documented as of this encounter
--- OUTSIDE RECORDS SUMMARY | 2024-07-29 14:31 | XMS_ITS | Encounter Summary ---
Author Organization [facility] Address [address] [place] [address] Care Team Providers Care Bit Sander Name Role Phone Telma Foster APRN Primary Care Provider [phone] Pcp, No Primary Care Provider Clarisse Parker APRN Primary Care Provider [phone] Encounter Details Date Type Department Care Team (Late st Contact Info) Description 12/05/2018 Scanned Document [address] [place] [address] Provider, Generic Social History Tobacco [...] on filedocumented in this encounter Care Teams Bit Sander Relationship Specialty Start Date End Date Telma Foster APRN [address] [place], [place] [address] PCP - General Family Medicine 08/14/17 12/21/18 Pcp, No PCP - General General Medicine 12/22/18 03/19/22 Clarisse Downey APRN [address] [place] [address] [place] [address] PCP - General 03/20/22 06/18/22 documented as of this encounter
--- OUTSIDE RECORDS SUMMARY | 2024-07-29 14:31 | XMS_ITS | Encounter Summary ---
Author Organization [facility] Address [address] [place] [address] Care Team Providers Care Material Control Supervisor Name Role Phone Telma Foster APRN Primary Care Provider [phone] Pcp, No Primary Care Provider Clarisse Parker APRN Primary Care Provider [phone] Reason for Visit * Reason Comments Medication Refill Encounter Details Date Type Department Care Team (Late st Contact Info) Description 11/12/2018 Refill [facility] 100 [facility] [address] [place] [address] Telma Foster APRN [address] [place] [id number] Benign essential HTN Social History Tobacco Use [...] HTN documented in this encounter Care Teams Material Control Supervisor Relationship Specialty Start Date End Date Telma Foster APRN [address] [facility] [address] [place] [address] PCP - General Family Medicine 08/14/17 12/21/18 Pcp, No PCP - General General Medicine 12/22/18 03/19/22 Clarisse Downey APRN [address] [place] [address] PCP - General 03/20/22 06/18/22 documented as of this encounter
--- OUTSIDE RECORDS SUMMARY | 2024-07-29 14:31 | XMS_ITS | Clinical Summary ---
Author Organization [facility] Address [address] [place] [address] Care Team Providers Care Mutual Fund Manager Name Role Phone Unavailable Primary Care Provider [...] Zoster (Shingles) Vaccine (1 of 2) 2018 COVID-19 Vaccine (1 - season) 2023 Influenza Vaccine 10/09/2024 02/21/2016 Insurance [facility]
--- OUTSIDE RECORDS SUMMARY | 2024-07-29 14:31 | XMS_ITS | Encounter Summary ---
Author Organization [facility] Address [address] [place] [address] Care Team Providers Care Lead Enterprise Architect Name Role Phone Pcp, No Primary Care Provider Clarisse Parker APRN Primary Care Provider [phone] Reason for Visit * Reason Comments Medication Refill Encounter Details Date Type Department Care Team (Late st Contact Info) Description 02/18/2019 Refill [facility] 100 [facility] [address] [place] [address] Telma Foster APRN [facility] [address] [place] [address] Benign essential HTN Social History Tobacco Use [...] HTN documented in this encounter Care Teams Lead Enterprise Architect Relationship Specialty Start Date End Date Pcp, No PCP - General General Medicine 12/22/18 03/19/22 Clarisse Downey APRN [address] [address] PCP - General 03/20/22 06/18/22 documented as of this encounter
--- OUTSIDE RECORDS SUMMARY | 2024-07-29 14:31 | XMS_ITS | Clinical Summary ---
Author Organization [facility] Address [address] [place] [address] Care Team Providers Care Legal Recovery Specialist Name Role Phone Cristian Telma Virgen HOLT Primary Care Provider [phone] Allergies Active Allergy Reactions Criticality Noted Date [...] USE DIRECTED Quantity: 1; Refills: 0 Lidia Schuster APRN; Started 05-Jan-2014 Active 0 01/05/2014 Active metoprolol tartrate (LOPRESSOR) 50 MG tablet TAKE ONE TABLET BY MOUTH TWICE DAILY 60 tablet 11 03/02/2016 Active ergocalciferol (VITAMIN D2) capsule 71091 units Take 50,000 Units by mouth. 0 Active pantoprazole (PROTONIX) 40 MG tablet 0 04/16/2016 Active montelukast (SINGULAIR) 10 MG tablet Take 10 mg by mouth. 0 Active Lidocaine-Hydrocorti sone Pedro 2-2 % KIT 0 03/07/2016 Active Ferrous Ixuwaqbky-Y-Ylyeu Acid (IRON-C PO) Take by mouth. 0 [...] age to complete this topic Care Teams Legal Recovery Specialist Relationship Specialty Start Date End Date Telma Foster APRN [address] [place] [address] PCP - General Unknown Physician Specialty 07/19/17
--- OUTSIDE RECORDS SUMMARY | 2024-07-29 14:32 | XMS_ITS | Encounter Summary ---
Author Organization [facility] Address [address] [place] [address] Care Team Providers Care Production Assembly Operator Name Role Phone Stephanie Mcmanus Primary Care Provider [phone] Homar Nixon MD Primary Care Provider [phone] Telma Foster APRN Primary Care Provider [phone] Pcp, No Primary Care Provider Clarisse Parker APRN Primary Care Provider + [phone] Reason for Visit * Reason Comments Medication Refill Encounter Details Date Type Department Care Team (Late st Contact Info) Description 04/06/[address] [place] [phone] Stephanie Mcmanus PA [address] [facility] [address] [place] [address] Benign essential HTN; Plantar fasciitis of right [...] knee documented in this encounter Care Teams Production Assembly Operator Relationship Specialty Start Date End Date Stephanie Mcmanus PA PCP - General Internal Medicine 04/03/16 06/23/17 Homar Nixon MD PCP - General Internal Medicine 06/24/17 08/13/17 Telma Foster APRN [address] [place] [address] PCP - General Family Medicine 08/14/17 12/21/18 Pcp, No PCP - General General Medicine 12/22/18 03/19/22 Clarisse Downey APRN [address] [place] [address] PCP - General 03/20/22 06/18/22 documented as of this encounter
--- OUTSIDE RECORDS SUMMARY | 2024-07-29 14:32 | XMS_ITS | Encounter Summary ---
Author Organization [address] [address] Care Team Providers Care Package Designer Name Role Phone Stephanie Mcmanus Primary Care Provider [phone] Homar Nixon MD Primary Care Provider [phone] Telma Foster APRN Primary Care Provider [phone] Pcp, No Primary Care Provider Clarisse Parker APRN Primary Care Provider + [phone] Encounter Details Date Type Department Care Team (Late st Contact Info) Description 04/06/2017 Scanned Document [address] [address] Provider, Generic Social History Tobacco [...] on filedocumented in this encounter Care Teams Package Designer Relationship Specialty Start Date End Date Stephanie Mcmanus PA PCP - General Internal Medicine 04/03/16 06/23/17 Homar Nixon MD PCP - General Internal Medicine 06/24/17 08/13/17 Telma Foster APRN [address] [facility] [address] [place] [address] PCP - General Family Medicine 08/14/17 12/21/18 Pcp, No PCP - General General Medicine 12/22/18 03/19/22 Clarisse Downey APRN [address] [address] PCP - General 03/20/22 06/18/22 documented as of this encounter
--- OUTSIDE RECORDS SUMMARY | 2024-07-29 14:32 | XMS_ITS | Clinical Summary ---
Author Organization [facility] [address] [facility] Address [address] [place] [address] Phone Care Team Providers Care Lumber Material Handler Name Role Phone Kareen Caldwell MD Primary [...] injector injectionIndica tions:Diabetes mellitus with no complication (CMS/HCC V24, CMS/HCC V28) INJECT 0.75 MG SUBCUTANEOUSLY ONE TIME [...] RASH CLEARES 30 g 2 025 Active apixaban (Eliquis) 5 mg tabletIndicatio ns:Atrial fibrillation, unspecified type (CMS/HCC V24, CMS/HCC V28) Take 1 tablet (5 mg total) by mouth 2 (two) times a day. 180 tablet 1 025 Active sacubitriL-vals krista (ENTRESTO) 24-26 mg per tablet Take 1 tablet by mouth 2 (two) times a day. 60 each 025 2025 Active carvediloL (COREG) 3.125 mg tablet Take 1 tablet (3.125 mg total) by mouth 2 (two) times a day with meals. 60 each 025 2025 Active metoprolol tartrate (LOPRESSOR) 25 mg tabletIndicatio ns:Essential hypertension TAKE 1 TABLET BY MOUTH TWICE A DAY 90 tablet 1 025 2024 Discontinued Hospital, Clinic, or Other Facility Administered Medication Ordered Dose Route Frequency Start Date End Date Status perflutren lipid microsphere (DEFINITY) 1.3 mL in sodium chloride 0.9% 8.7 mL injection 10 mL IV Once in imaging 06/30/2024 06/30/2024 End ed Active Problems Problem Noted Date Diagnosed Date HFrEF (heart failure with re duced ejection fraction) ([facility] [place] [place] V24, [facility] [place] [place] V28) 07/10/2024 Low left ventricular ejection fraction Dyspnea on exertion 07/06/2024 Morbid obesity with BMI of 4 5.0-49.9, adult ([facility] [place] [place] V24, [facility] [place] [place] V28) 02/20/2024 Stage 3a chronic kidney disease ([facility] [place] [place] V24, CM S/[facility] V28) 06/26/2021 Type 2 diabetes, diet controlled ([facility] [place] [place] V24, C VT/[facility] V28) 06/26/2021 Overview (02/20/2024): 05/03 - HgbA1C 7% Hyperlipidemia 11/01/2020 SVT (supraventricular tachycardia) ([facility] [place] [place] V24) 11/01/2020 Overview (02/20/2024): Only 1 episode [...] 09/21/2019 Obstructive sleep apnea 05/04/2019 Overview (02/20/2024): [facility] Polysomnogram: Date 04/28/2019; Wt 260#; [...] associated wi th type 2 diabetes mellitus ([facility] V24, [facility] V28) 12/15/2018 Seasonal allergies 11/28/2018 Arthritis of both knees 11/26/2018 Overview (02/20/2024): Last Assessment & Plan: 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 Essential hypertension 11/26/2018 (sickle cell trait) ([facility] V24) 10/26/2014 Asthma 10/26/2014 Encounters Date Type Department Care Team Description 07/23/2024 9:00 AM EDT Ancillary Procedure [facility] Cardiology [facility] [address] [place] [address] Dyspnea on exertion; Atrial fibrillation, unspecified type ([facility] V24, [facility] V28) 07/20/2024 Telephone [facility] Cardiology [facility] [address] [facility] [address] [place] [address] Destiny Webber MD Medication 07/13/2024 Telephone [facility] Cardiology [facility] [address] [place] [address] Destiny Webber MD Entresto 24-26MG tablets 07/13/2024 Telephone [facility] [address] [place] [address] Destiny Webber MD Medication; calling back (Calling back ) 07/10/2024 2:30 PM EDT Office Visit [facility] Cardiology [facility] [address] [facility] [place] [address] Destiny Webber MD HFrEF (heart failure with reduced ejection fraction) (CMS/HCC V24, CMS/HCC V28) (Primary Dx); Type 2 diabetes mellitus with other diabetic kidney complication, without long-term current use of insulin (CMS/HCC V24, CMS/HCC V28); Essential hypertension; Dyspnea on exertion; Former smoker; Obesity, Class III, BMI 40-49.9 (morbid obesity); New onset a-fib (CMS/HCC V24, CMS/HCC V28); Atrial fibrillation, unspecified type (CMS/HCC V24, CMS/HCC V28); Low left ventricular ejection fraction 06/30/2024 2:30 PM EDT Ancillary Procedure [facility] [address] [place] [address] Type 2 diabetes mellitus with other diabetic kidney complication, without long-term current use of insulin (CMS/HCC V24, CMS/HCC V28); Essential hypertension; Dyspnea on exertion; Former smoker 06/30/2024 Telephone [facility] [address] [place] [address] Tootie Fields NP 06/22/2024 8:30 AM EDT Office Visit Adult [facility] [address] [place] [phone] Kareen Caldwell MD Dyspnea on exertion (Primary Dx); New onset a-fib (CMS/HCC V24, [facility] V28); Type 2 diabetes mellitus with other diabetic kidney complication, without long-term current use of insulin ([facility] V24, [facility] V28); Essential hypertension; Former smoker; Obesity, Class III, BMI 40-49.9 (morbid obesity); MARYANN (obstructive sleep apnea) 06/11/2024 9:00 AM EDT Office Visit Gastroenterology - [address] [place] [address] Shannon Israel MD Gastroesophageal reflux disease without esophagitis (Primary Dx); Eosinophilic esophagitis due to food; GERD (gastroesophageal reflux disease) 05/20/2024 Telephone Adult Medicine - [address] [address] Kareen Caldwell MD Forms/questionnaires ([facility] Medical Certification) from Last 3 Months [...] Right PROCEDURE: HISTORICAL ANKLE SURGERY SALPINGOOPHORECTOMY PROCEDURE: OH LAPAROSCOPY W/RMVL ADNEXAL STRUCTURES; COMMENT: Unilateral UPPER GASTROINTESTINAL ENDOSCOPY 07/26/2022 35 eos/hpf OTHER SURGICAL HISTORY 2020 PROCEDURE: OH PRTL THYROID LOBECTOMY UNI W/WO ISTHMUSECTOMY COLONOSCOPY 07/26/2022 nl- tics, hemorrhoids VIRTUAL COLONSCOPY (DIAG.) 12/22/2014 tics, hemorrhoids, HP x 1, nl colonc bx ESOPHAGOGASTRODUODENOSCOPY 12/22/2014 mild chronic duodenitis. no H. pylori, 10 eos/hpf ESOPHAGOGASTRODUODENOSCOPY 03/21/2016 all nl esophagus bx x 3 Medical History Medical History Date Comments Essential hypertension DX:Essent ial hypertension DM (diabetes mellitus), type 2 with renal complications ([facility] [place] [place] V24, [facility] [place] [place] V28) 12/15/2018 DX:DM (diabetes mellitus), t ype 2 with renal complications (HCC) (sickle cell trait) ([facility] [place] [place] V24) 01/26/2019 DX: (sickle cell trait) ([facility]) Eosinophilic esophagitis 01/26/2019 DX:Eosi nophilic esophagitis GERD (gastroesophageal reflux disease) 9 DX:GERD (gastroesophageal reflux disease) Nephrolithiasis 01/26/2019 DX:Nephrolithias is Asthma 01/26/2019 DX:Asthma Morbid obesity with BMI of 4 5.0-49.9, adult ([facility] [place] [place] V24, [facility] [place] [place] V28) 01/26/2019 DX:Morbid obesity wit h BMI of 45.0-49.9, adult ([facility]) Vitamin D deficiency 01/26/2019 DX:Vitamin D deficiency Diverticulosis 01/26/2019 DX:Diverticulosi s History of torn meniscus of right knee 11/26/2018 DX:History of torn meniscus of right knee Hyperlipidemia associated wi th type 2 diabetes mellitus ([facility] [place] [place] V24, [facility] [place] [place] V28) 12/15/2018 DX:Hyperlipidemia associated with type 2 diabetes mellitus ([facility]) Seasonal allergies 11/28/2018 DX:Seasonal a llergies CKD (chronic kidney disease) stage 3, GFR 30-59 ml/min ([facility] [place] [place] V24, [facility] V28) 12/15/2018 DX:CKD (chronic kidney disea se) stage 3, GFR 30-59 ml/min ([facility]) Arthritis of both knees 11/26/2018 DX:Arthr itis of both knees Multiple food allergies 12/17/2018 DX:Multi ple food allergies; COMMENT: Seafood, Tree Nuts, Rice Snoring 01/06/2019 DX:Snoring; COMM ENT: 12/2018 Home Sleep Study did not reveal sleep apnea or nocturnal hypoxia. DM (diabetes mellitus), type 2 with renal complications ([facility] [place] [place] V24, [facility] [place] [place] V28) 12/15/2018 DX:DM (diabetes mellitus), t ype 2 with renal complications (HCC) Nephrolithiasis 01/26/2019 DX:Nephrolithias is Family History Medical [...] care for your loved ones. For example, children's lunchroom supervisor or elderly care for an older adult? [...] Sign Reading Time Taken Comments Blood Pressure 130/82 07/10/2024 2:14 PM EDT Pulse 88 07/10/2024 2:14 PM EDT Temperature 36.1 ??C (96.9 ??F) 06/22/2024 8:33 AM ED T Respiratory Rate - - Oxygen Saturation 98% 07/10/2024 2:14 PM EDT Inhaled Oxygen Concentration - - Weight 121 kg (266 lb) 07/10/2024 2:14 PM EDT Height 160 cm (5' 3 ) 07/10/2024 2:14 PM EDT Body Mass Index 47.12 07/10/2024 2:14 PM EDT Plan of Treatment Upcoming Encounters Date Type Department Care Team (Latest Contact Info) Description 08/20/2024 10:30 AM EDT Hospital Encounter [facility]iac [facility] [employer] [address] [place] [phone] Destiny Webber MD [address] [place] [address] [place] [address] HFrEF (heart failure with reduced ejection fraction) (CMS/HCC V24, CMS/HCC V28) 08/20/2024 10:30 AM EDT - 08/20/2024 12:30 PM EDT Surgery [facility] [employer] [address] [place] [phone] Destiny Webber MD [address] [place] [address] [place] [address] Left heart cath / Coronary angiography [[id number] (CPT??)] 09/21/2024 12:40 PM EDT Office Visit [facility] Cardiology [facility] [address] [place] [address] Micki Beaulieu NP [address] [place] [address] [place], [place] [id number] 10/29/2024 9:00 AM EDT Office Visit Adult Medicine - [place] [address] [place] [address] Mike Talbert PA [address] [place] [address] 12/16/2024 9:50 AM EDT Office Visit [facility] Cardiology [facility] [address] [facility] [address] [place] [phone] Destiny Webber MD [address] [place] [address] [address] [place], [place] [phone] Health Maintenance Due Date Last Done Comments [...] 04/06/2021, 08/22/2020, Additional history exists Diabetes: Annual Foot Exam 04/04/2024 04/04/2023 Diabetes: Annual Retina Eye Exam 09/09/2024 09/10/2023 Influenza Vaccine (Season Ended) 2024 12/27/2020, 11/28/2019 Diabetes: Blood Sugar Control Test (HGBA1C) 01/02/2025 07/03/2024, 12/19/2023, 12/19/2023, Additional history exists Breast Cancer Screening 05/28/2025 05/29/19 24, 07/25/2020, 07/07/2020, Additional history exists Depression Screening 06/15/2025 06/15/2024, 02/21/20 23 Social Influencers of Health Screening 06/15/2025 06/15/2024 Diabetes: Annual Urine Albumin-Creatinine Ratio (uACR) 07/03/2025 07/03/2024, 03/13/2023 Diabetes: Annual GFR (Glomerular Filtration Rate) 07/03/2025 07/03/2024, 12/19/2023, 08/15/2023, Additional history exists Hypertension/CHF/CAD Annual BMP Blood Test 07/03/2025 07/03/2024, 12/19/2023, 08/15/2023, Additional history exists Cholesterol Screening (Lipid Panel) 07/03/2029 07/03/2024, 08/15/2023, 08/15/2023 DTaP,Tdap,and Td Vaccines (3 - [...] Date/Time Associated Diagnosis Comments ECG 12-LEAD Routine 07/10/2024 2:24 PM EDT New onset a-fib (CMS/HCC V24, CMS/HCC V28) Atrial fibrillation, unspecified type (CMS/HCC V24, CMS/HCC V28) MICROALBUMIN CREATININE URINE RATIO Routine 07/03/2024 4:36 PM EDT Type 2 diabetes mellitus with other diabetic kidney complication, without long-term current use of insulin (CMS/HCC V24, CMS/HCC V28) Essential hypertension CBC WITH AUTO DIFFERENTIAL Routine 07/03/2024 4:29 PM EDT New onset a-fib (CMS/HCC V24, CMS/HCC V28) Type 2 diabetes mellitus with other diabetic kidney complication, without long-term current use of insulin (CMS/HCC V24, CMS/HCC V28) Essential hypertension Dyspnea on exertion Former smoker Obesity, Class III, BMI 40-49.9 (morbid obesity) MARYANN (obstructive sleep apnea) CBC AND DIFFERENTIAL Routine 07/03/2024 4:29 PM EDT New onset a-fib (CMS/HCC V24, CMS/HCC V28) Type 2 diabetes mellitus with other diabetic kidney complication, without long-term current use of insulin (CMS/HCC V24, CMS/HCC V28) Essential hypertension Dyspnea on exertion Former smoker Obesity, Class III, BMI 40-49.9 (morbid obesity) MARYANN (obstructive sleep apnea) THYROID STIMULATING HORMONE WITH REFLEX TO FREE T4 AND FREE T3 Routine 07/03/2024 4:29 PM EDT New onset a-fib (CMS/HCC V24, CMS/HCC V28) Type 2 diabetes mellitus with other diabetic kidney complication, without long-term current use of insulin (CMS/HCC V24, CMS/HCC V28) Essential hypertension Dyspnea on exertion Former smoker Obesity, Class III, BMI 40-49.9 (morbid obesity) MARYANN (obstructive sleep apnea) COMPREHENSIVE METABOLIC PANEL Routine 07/03/2024 4:29 PM EDT Type 2 diabetes mellitus with other diabetic kidney complication, without long-term current use of insulin (CMS/HCC V24, CMS/HCC V28) Essential hypertension LIPID PANEL WITH REFLEX TO DIRECT LDL Routine 07/03/2024 4:29 PM EDT Type 2 diabetes mellitus with other diabetic kidney complication, without long-term current use of insulin (CMS/HCC V24, CMS/HCC V28) Essential hypertension HEMOGLOBIN A1C Routine 07/03/2024 4:29 PM EDT Type 2 diabetes mellitus with other diabetic kidney complication, without long-term current use of insulin (CMS/HCC V24, CMS/HCC V28) Essential hypertension TRANSTHORACIC ECHOCARDIOGRAM (TTE) COMPLETE W/ CONTRAST Routine 06/30/2024 3:54 PM EDT Type 2 diabetes mellitus with other diabetic kidney complication, without long-term current use of insulin (CMS/HCC V24, CMS/HCC V28) Essential hypertension Dyspnea on exertion Former smoker ECG 12-LEAD Routine 06/22/2024 11:54 AM EDT DIABETES EYE EXAM Routine 09/10/2023 SCREENING MAMMOGRAPHY BI 2-VIEW BREAST INC CAD Routine 05/29/2023 1:52 PM EDT Encounter for other screening for malignant neoplasm of breast DIABETES FOOT EXAM Routine 04/04/2023 DEPRESSION SCREENING Routine 02/20/2023 COLONOSCOPY Routine 07/26/2022 HEPATITIS C SCREENING Routine 01/10/2021 HPV Routine 10/15/2018 from Last 3 Months or Most Recently Relevant to Health Maintenance Results * ECG 12 lead (07/10/2024 2:24 PM EDT) Only the most recent of2 resultswithin the time period is included. Ventricular Rate ECG 88 BPM GEMUSE Atrial Rate 394 BPM GEMUSE QRS Duration 66 ms GEMUSE Q-T Interval 392 ms GEMUSE QTc 474 ms GEMUSE R [place] 70 degrees GEMUSE T [place] 123 degrees GEMUSE ECG Interpretation Atrial fibrillation Low voltage QRS Cannot rule out Anterior infarct , age undetermined Abnormal ECG When compared with ECG of 28-AUG-2018 03:27, Atrial fibrillation has replaced Sinus rhythm Nonspecific T wave abnormality no longer evident in Inferior leads Nonspecific T wave abnormality now evident in Lateral leads Confirmed by DESTINY WEBBER ([id number]) on 07/10/2024 4:00:37 PM GEMUSE 07/10/2024 2:24 PM EDT 07/10/2024 4:00 PM EDT Destiny Webber MD ECG ORDERABLES Final Result GEMUSE * (ABNORMAL) Microalbumin creatinine urine ratio (07/03/2024 4:36 PM EDT) Creatinine, Urine 146.0 mg/dL LAB CHEMISTRY METHOD 07/03/2024 6:30 PM EDT [facility] Microalb, Ur 87.2(H) 0.0 - 29.0 mg/L LAB CHEMISTRY METHOD 07/03/2024 6:30 PM EDT [facility] Microalb/Crea t Ratio 60(H) <30 mg/g creat LAB CHEMISTRY METHOD 07/03/2024 6:30 PM EDT [facility] Urine Urine specimen obtained by clean catch procedure / Unknown Non-blood Collection / Unknown 07/03/2024 4:36 PM EDT 07/03/2024 4:36 PM EDT Kareen Caldwell MD LAB URINE ORDERABLES F inal Result [facility] [address] [place] [address], [place] [phone] * Thyroid stimulating hormone with reflex to free t4 and free t3 (07/03/2024 4:29 PM EDT) TSH 3.36 0.40 - 4.00 mcIU/mL LAB CHEMISTRY METHOD 07/03/2024 6:26 PM EDT [facility] Blood Venous blood specimen / Unknown Venipuncture / Unknown 07/03/2024 4:29 PM EDT 07/03/2024 4:29 PM EDT us Kareen Caldwell MD LAB BLOOD ORDERABLES F inal Result [facility] [address] [place] [address], [place] [phone] * (ABNORMAL) Lipid panel with reflex to direct LDL (07/03/2024 4:29 PM EDT) Cholesterol 122 0 - 200 mg/dL LAB CHEMISTRY METHOD 07/03/2024 6:09 PM EDT [facility] Triglycerides 119 0 - 150 mg/dL LAB CHEMISTRY METHOD 07/03/2024 6:09 PM EDT [facility] HDL 33(L) >=40 mg/dL LAB CHEMISTRY METHOD 07/03/2024 6:09 PM EDT [facility] LDL Calculated 65 0 - 100 mg/dL LAB CHEMISTRY METHOD 07/03/2024 6:09 PM T [facility] VLDL Cholesterol Carlos 23.8 mg/dL LAB CHEMISTRY METHOD 07/03/2024 6:09 PM EDT [facility] Non HDL Chol. (LDL+VLDL) 89 <145 mg/dL LAB CHEMISTRY METHOD 07/03/2024 6:09 PM EDT [facility] Chol/HDL Ratio 3.7 0.0 - 4.4 LAB CHEMISTRY METHOD 07/03/2024 6:09 PM T [facility] Blood Venous blood specimen / Unknown Venipuncture / Unknown 07/03/2024 4:29 PM EDT 07/03/2024 4:29 PM EDT us Kareen Caldwell MD LAB BLOOD ORDERABLES F inal Result [facility] [address] [place] [address], * (ABNORMAL) CBC auto differential (07/03/2024 4:29 PM EDT) WBC 9.1 4.8 - 10.8 K/mcL LAB HEMETOLOGY METHOD 07/03/2024 5:43 PM EDT [facility] RBC 4.80 3.80 - 4.80 M/[facility] LAB HEMETOLOGY METHOD 07/03/2024 5:43 PM EDT [facility] Hemoglobin 12.0 11.5 - 16.0 g/dL LAB HEMETOLOGY METHOD 07/03/2024 5:43 PM EDT [facility] Hematocrit 38.2 35.0 - 47.0 % LAB HEMETOLOGY METHOD 07/03/2024 5:43 PM EDT [facility] MCV 79.4 79.0 - 98.0 FL LAB HEMETOLOGY METHOD 07/03/2024 5:43 PM EDT [facility] MCH 24.9(L) 27.0 - 32.0 pcg LAB HEMETOLOGY METHOD 07/03/2024 5:43 PM EDT [facility] MCHC 31.4(L) 32.0 - 37.0 g/dL LAB HEMETOLOGY METHOD 07/03/2024 5:43 PM EDT [facility] RDW 13.8 11.0 - 15.0 % LAB HEMETOLOGY METHOD 07/03/2024 5:43 PM EDT [facility] Platelets 299 130 - 400 K/mcL LAB HEMETOLOGY METHOD 07/03/2024 5:43 PM EDT [facility] MPV 11.4(H) 7.0 - 11.0 FL LAB HEMETOLOGY METHOD 07/03/2024 5:43 PM [facility] NRBC 0.0 <1.0 % LAB HEMETOLOGY METHOD 07/03/2024 5:43 [facility] NRBC Absolute 0.00 <0.10 K/mcL LAB HEMETOLOGY METHOD 07/03/2024 5:43 PM [facility] Neutrophils Relative 71.3 % LAB HEMETOLOGY METHOD 07/03/2024 5:43 PM [facility] Lymphocytes Relative 20.4 % LAB HEMETOLOGY METHOD 07/03/2024 5:43 PM [facility] Monocytes Relative 4.8 % LAB HEMETOLOGY METHOD 07/03/2024 5:43 PM [facility] Eosinophils Relative 2.3 % LAB HEMETOLOGY METHOD 07/03/2024 5:43 PM [facility] Basophils Relative 0.7 % LAB HEMETOLOGY METHOD 07/03/2024 5:43 PM [facility] Immature Granulocytes Relative 0.5 % LAB HEMETOLOGY METHOD 07/03/2024 5:43 PM [facility] Neutrophils Absolute 6.49 1.50 - 7.00 K/mcL LAB HEMETOLOGY METHOD 07/03/2024 5:43 PM [facility] Lymphocytes Absolute 1.86 1.00 - 5.00 K/mcL LAB HEMETOLOGY METHOD 07/03/2024 5:43 PM [facility] Monocytes Absolute 0.44 0.20 - 1.00 K/mcL LAB HEMETOLOGY METHOD 07/03/2024 5:43 PM [facility] Eosinophils Absolute 0.21 0.00 - 0.50 K/mcL LAB HEMETOLOGY METHOD 07/03/2024 5:43 PM [facility] Basophils Absolute 0.06 0.00 - 0.20 K/mcL LAB HEMETOLOGY METHOD 07/03/2024 5:43 PM EDT [facility] Immature Granulocytes Absolute 0.05(H) 0.00 - 0.03 K/mcL LAB HEMETOLOGY METHOD 07/03/2024 5:43 PM EDT [facility] Blood Venous blood specimen / Unknown Venipuncture / Unknown 07/03/2024 4:29 PM EDT 07/03/2024 4:29 PM EDT Kareen Caldwell MD LAB BLOOD ORDERABLES F inal Result [facility] [address] [place] [address], [place] [phone] * (ABNORMAL) Hemoglobin A1c (07/03/2024 4:29 PM EDT) Hemoglobin A1C 6.7(H) <6.5 % LAB CHEMISTRY METHOD 07/03/2024 9:57 PM EDT [facility] Mean Bld Glu Estim. 146 mg/dL LAB CHEMISTRY METHOD 07/03/2024 9:57 PM EDT [facility] Blood Venous blood specimen / Unknown Venipuncture / Unknown 07/03/2024 4:29 PM EDT 07/03/2024 4:29 PM EDT Kareen Caldwell MD LAB BLOOD ORDERABLES F inal Result [facility] [address] [place] [address], [place] [phone] * (ABNORMAL) Comprehensive metabolic panel (07/03/2024 4:29 PM EDT) Sodium 141 133 - 145 mmol/L LAB CHEMISTRY METHOD 07/03/2024 6:09 PM EDT [facility] Potassium 3.7 3.5 - 5.5 mmol/L LAB CHEMISTRY METHOD 07/03/2024 6:09 PM [facility] Chloride 106 96 - 110 mmol/L LAB CHEMISTRY METHOD 07/03/2024 6:09 PM [facility] CO2 30 21 - 32 mmol/L LAB CHEMISTRY METHOD 07/03/2024 6:09 PM [facility] Anion Gap 5 3 - 11 LAB CHEMISTRY METHOD 07/03/2024 6:09 PM [facility] Glucose 65(L) 70 - 100 mg/dL LAB CHEMISTRY METHOD 07/03/2024 6:09 PM [facility] BUN 14 5 - 25 mg/dL LAB CHEMISTRY METHOD 07/03/2024 6:09 PM [facility] Creatinine 1.12(H) 0.50 - 1.10 mg/dL LAB CHEMISTRY METHOD 07/03/2024 6:09 PM [facility] eGFR 58(L) >=60 mL/min/1. 73m2 LAB CHEMISTRY METHOD 07/03/2024 6:09 PM [facility] Comment:Calculation based on the??Chronic Kidney Disease Epidemiology Collaboration (CKD-EPI) equation refit??without adjustment for race. BUN/Creatinine Ratio 12.5 LAB CHEMISTRY METHOD 07/03/2024 6:09 PM [facility] Calcium 9.7 8.5 - 10.5 mg/dL LAB CHEMISTRY METHOD 07/03/2024 6:09 PM [facility] AST (SGOT) 15 10 - 42 unit/L LAB CHEMISTRY METHOD 07/03/2024 6:09 PM [facility] ALT (SGPT) 21 10 - 60 unit/L LAB CHEMISTRY METHOD 07/03/2024 6:09 PM [facility] Alkaline Phosphatase 98 42 - 121 unit/L LAB CHEMISTRY METHOD 07/03/2024 6:09 PM [facility] Total Protein 7.4 6.0 - 8.0 g/dL LAB CHEMISTRY METHOD 07/03/2024 6:09 PM EDT [facility] Albumin 3.7 3.2 - 5.0 g/dL LAB CHEMISTRY METHOD 07/03/2024 6:09 PM EDT [facility] Total Bilirubin 1.2 0.0 - 1.4 mg/dL LAB CHEMISTRY METHOD 07/03/2024 6:09 PM EDT [facility] Blood Venous blood specimen / Unknown Venipuncture / Unknown 07/03/2024 4:29 PM EDT 07/03/2024 4:29 PM EDT us Kareen Caldwell MD LAB BLOOD ORDERABLES F inal Result [facility] [address] [place] [address], [place] [phone] * (ABNORMAL) TRANSTHORACIC ECHOCARDIOGRAM (TTE) COMPLETE W/ CONTRAST (06/30/2024 3:54 PM EDT) LV EDV (A2C) 135 mL CV PACS LV EDV (A4C) 154 mL CV PACS LV Diastolic Volume (BP) 147(A) 46 - 106 mL CV PACS LV ESV (A2C) 98 mL CV PACS LV ESV (A4C) 91 mL CV PACS LV Systolic Volume (BP) 94(A) 14 - 42 mL CV PACS IVSD 1.3(A) 0.6 - 0.9 cm CV PACS LVIDD 4.7 3.8 - 5.2 cm CV PACS LVIDS 3.0 2.2 - 3.5 cm CV PACS LVOT Diameter 2.2 cm CV PACS LVPWD 1.5(A) 0.6 - 0.9 cm CV PACS Ejection Fraction (A2C) 27 % CV PACS Ejection Fraction (A4C) 41 % CV PACS Ejection Fraction (BP) 36 % CV PACS LVOT Area 3.8 cm2 CV PACS Left Atrium Minor [place] 6.9 cm CV PACS Left Atrium Major [place] 6.5 cm CV PACS LA Area Sys (A2C) 24 cm2 CV PACS LA Area Sys (A4C) 20 cm2 CV PACS LA Volume (BP) 59 mL CV PACS RA Area 22.5 cm2 CV PACS RA 2D Volume 72 mL CV PACS Aortic Sinus Valsalva 3.5 cm CV PACS Ascending Aorta 3.7 cm CV PACS RV Diastolic Basal Dimension 3.8 2.5 - 4.1 cm CV PACS RV S' 8 cm/s CV PACS TAPSE 13 mm CV PACS TR Peak Velocity 2.67 m/s CV PACS TR Peak Gradient 29 mmHg CV PACS LV ESV Index (A4C) 42 mL/m2 CV PACS LV EDV Index (A4C) 71 mL/m2 CV PACS Relative Wall Thickness ratio 0.64 CV PACS FS 36 % CV PACS LV Mass 2D 265 g CV PACS Ascending Aorta Index 1.70 cm/m2 CV PACS RA 2D Volume Index 33 mL/m2 CV PACS LVIDD Index 2.16 cm/m2 CV PACS LVIDS Index 1.38 cm/m2 CV PACS LV Systolic Volume Index (BP) 43 mL/m2 CV PACS LV Diastolic Volume Index (BP) 67 mL/m2 CV PACS LA Volume Index (BP) 27 mL/m2 CV PACS LV Mass Index 2D 122 g/m2 CV PACS LV EDV Index (A2C) 62 mL/m2 CV PACS LV ESV Index (A2C) 45 mL/m2 CV PACS BSA 2.32 m2 CV PACS Right Ventricular Peak Systolic Pressure 32 mmHg CV PACS Est. RA Pressure 3 mmHg CV PACS Anatomical Region Laterality Modality Ultrasound Narrative 07/02/2024 3:47 PM EDT ?Left ventricle cavity size is normal. Left ventricular systolic function is moderately decreased with an ejection fraction of 30-35%. ?Moderate LV global hypokinesis is present. ?Left ventricle moderate hypertrophy. ?Right ventricle cavity is normal. Right ventricular systolic function is low normal. ?No hemodynamically significant valve disease. ?The ascending aorta is dilated (3.7 cm). ?Trivial pericardial effusion. Left Ventricle Left ventricle cavity size is normal. There is moderate hypertrophy. Systolic function is moderately decreased with an ejection fraction of 30-35%. Moderate global LV hypokinesis is present. Unable to assess diastolic function. Right Ventricle Right ventricle cavity appears normal. Systolic function is low normal. Left Atrium Left atrium cavity size is normal. Right Atrium Right atrium cavity is mildly dilated. IVC/SVC Inferior vena cava structure is normal. RA pressures is estimated to be 3 mmHg (IVC diameter <21 mm and decreases >50% during inspiration). Mitral Valve The leaflets are mildly thickened. There is annular calcification. There is mild regurgitation. There is no evidence of mitral valve stenosis. Tricuspid Valve The leaflets exhibit normal excursion. There is trace to mild regurgitation. The RVSP is estimated at 32 mmHg. Aortic Valve The aortic valve is trileaflet. The leaflets are mildly thickened. There is trace regurgitation. There is no evidence of aortic valve stenosis. Pulmonic Valve Visualized portions of the pulmonic valve appear normal. There is trace pulmonic valve regurgitation. Ascending Aorta The Sinus of Valsalva is (3.5 cm). The ascending aorta is (3.7 cm). Pericardium There is a trivial pericardial effusion. Study Details Overall the study quality was technically difficult. Definity contrast was given to enhance imaging. Study was difficult due to: poor endocardial visualization. Kareen Caldwell MD CV ECHO PROCEDURES Fin al Result * Diabetes Eye Exam (09/10/2023) Diabetes: Annual Retina Eye Exam abstracted Historical Provider [facility] Final Result * SCREENING MAMMOGRAPHY BI 2-VIEW BREAST [...] Resul t * Diabetes Foot Exam (04/04/2023) [facility] Diabetes: Annual Foot Exam abstracted [facility] Provider HEALTH MAINTENANCE Final Result * Depression Screening (02/20/2023) [facility] Depression Screening abstracted [facility] Provider HEALTH MAINTENANCE Final Result * Colonoscopy (07/26/2022) [facility] Colonoscopy abstracted, no interpretation Anatomical Region Laterality Modality Other [facility] Provider HEALTH MAINTENANCE Final Result * Hepatitis C Screening (01/10/2021) [facility] Hepatitis C Screening abstracted Historical Provider HEALTH MAINTENANCE Final Result * Cervical Cancer Screening: HPV (10/15/2018) [facility] Cervical Cancer Screening: HPV abstracted, negative Historical Provider HEALTH MAINTENANCE Final Result from Last 3 Months or Most Recently Relevant to Health Maintenance Insurance [facility] [employer] PL[employer] Care Teams Lumber Material Handler Relationship Specialty Start Date End Date Kareen Caldwell MD [address] [place] [address] [id number] PCP - General Internal Medicine 03/24/24
--- OUTSIDE RECORDS SUMMARY | 2024-07-29 14:32 | XMS_ITS | Encounter Summary ---
Author Organization [address] [address] Care Team Providers Care Sales Recruiting Coordinator Name Role Phone Stephanie Mcmanus Primary Care Provider + [phone] Homar Nixon MD Primary Care Provider [phone] Telma Foster APRN Primary Care Provider [phone] Pcp, No Primary Care Provider Clarisse Parker APRN Primary Care Provider + [phone] Encounter Details Date Type Department Care Team (Late st Contact Info) Description 04/15/2017 Scanned Document [address] [phone] Provider, Generic Social History Tobacco [...] on filedocumented in this encounter Care Teams Sales Recruiting Coordinator Relationship Specialty Start Date End Date Stephanie Mcmanus PA PCP - General Internal Medicine 04/03/16 06/23/17 Homar Nixon MD PCP - General Internal Medicine 06/24/17 08/13/17 Telma Foster APRN [address] [facility] 101 [place] [address] PCP - General Family Medicine 08/14/17 12/21/18 Pcp, No PCP - General General Medicine 12/22/18 03/19/22 Clarisse Downey APRN [address] [address] PCP - General 03/20/22 06/18/22 documented as of this encounter
--- OUTSIDE RECORDS SUMMARY | 2024-07-29 14:32 | XMS_ITS | Encounter Summary ---
Author Organization [facility] Address [address] [place] [address] Care Team Providers Care Metallographic Technician Name Role Phone Clarisse Downey APRN Primary Care Provider + [phone] Stephanie Mcmanus Primary Care Provider + [phone] Homar Nixon MD Primary Care Provider [phone] Telma Foster APRN Primary Care Provider [phone] Pcp, No Primary Care Provider Clarisse Parker APRN Primary Care Provider + [phone] Clarisse Downey APRN Primary Care Provider + [phone] Encounter Details Date Type Department Care Team (Late st Contact Info) Description 02/10/2016 Scanned Document [address] [place] [phone] Provider, Generic Social History Tobacco Use [...] on filedocumented in this encounter Care Teams Metallographic Technician Relationship Specialty Start Date End Date Clarisse Downey APRN PCP - General 02/23/16 04/02/16 Stephanie Mcmanus PA PCP - General Internal Medicine 04/03/16 06/23/17 Homar Nixon MD PCP - General Internal Medicine 06/24/17 08/13/17 Telma Foster APRN [address] [facility] 101 [place] [address] PCP - General Family Medicine 08/14/17 12/21/18 Pcp, No PCP - General General Medicine 12/22/18 03/19/22 Clarisse Downey APRN [address] [address] PCP - General 02/22/16 Clarisse Downey APRN [address] [address] PCP - General 03/20/22 06/18/22 documented as of this encounter
--- OUTSIDE RECORDS SUMMARY | 2024-07-29 14:32 | XMS_ITS | Encounter Summary ---
Author Organization [address] [address] Care Team Providers Care Link Trainer Mechanic Name Role Phone Stephanie Mcmanus Primary Care Provider + [phone] Homar Nixon MD Primary Care Provider [phone] Telma Foster APRN Primary Care Provider [phone] Pcp, No Primary Care Provider Clarisse Parker APRN Primary Care Provider + [phone] Encounter Details Date Type Department Care Team (Late st Contact Info) Description 11/19/2016 Scanned Document [address] [phone] Provider, Generic Social History Tobacco [...] on filedocumented in this encounter Care Teams Link Trainer Mechanic Relationship Specialty Start Date End Date Stephanie Mcmanus PA PCP - General Internal Medicine 04/03/16 06/23/17 Homar Nixon MD PCP - General Internal Medicine 06/24/17 08/13/17 Telma Foster APRN [address] [facility] 101 [place] [address] PCP - General Family Medicine 08/14/17 12/21/18 Pcp, No PCP - General General Medicine 12/22/18 03/19/22 Clarisse Downey APRN [address] [address] PCP - General 03/20/22 06/18/22 documented as of this encounter
--- OUTSIDE RECORDS SUMMARY | 2024-07-29 14:32 | XMS_ITS | Encounter Summary ---
Author Organization [facility] Address [address] [place] [address] Care Team Providers Care Knife Sharpener Name Role Phone Stephanie Mcmanus Primary Care Provider + [phone] Homar Nixon MD Primary Care Provider [phone] Telma Foster APRN Primary Care Provider [phone] Pcp, No Primary Care Provider Clarisse Parker APRN Primary Care Provider + [phone] Reason for Visit * Reason Comments Medication Refill Encounter Details Date Type Department Care Team (Late st Contact Info) Description 01/27/[address] [place] [phone] Stephanie Mcmanus PA [address] [place] [address] Benign essential HTN; Plantar fasciitis of right [...] knee documented in this encounter Care Teams Knife Sharpener Relationship Specialty Start Date End Date Stephanie Mcmanus PA PCP - General Internal Medicine 04/03/16 06/23/17 Homar Nixon MD PCP - General Internal Medicine 06/24/17 08/13/17 Telma Foster APRN [address] [facility] [address] [place] [address] PCP - General Family Medicine 08/14/17 12/21/18 Pcp, No PCP - General General Medicine 12/22/18 03/19/22 Clarisse Downey APRN [address] [place] [address] PCP - General 03/20/22 06/18/22 documented as of this encounter
--- OUTSIDE RECORDS SUMMARY | 2024-07-29 14:32 | XMS_ITS | Encounter Summary ---
Author Organization [address] [address] Care Team Providers Care Door Repairer Bus Name Role Phone Stephanie Mcmanus Primary Care Provider + [phone] Homar Nixon MD Primary Care Provider [phone] Telma Foster APRN Primary Care Provider [phone] Pcp, No Primary Care Provider Clarisse Parker APRN Primary Care Provider + [phone] Encounter Details Date Type Department Care Team (Late st Contact Info) Description 07/30/2016 Scanned Document [address] [phone] Provider, Generic Social History Tobacco [...] on filedocumented in this encounter Care Teams Door Repairer Bus Relationship Specialty Start Date End Date Stephanie Mcmanus PA PCP - General Internal Medicine 04/03/16 06/23/17 Homar Nixon MD PCP - General Internal Medicine 06/24/17 08/13/17 Telma Foster APRN [address] [facility] 101 [place] [address] PCP - General Family Medicine 08/14/17 12/21/18 Pcp, No PCP - General General Medicine 12/22/18 03/19/22 Clarisse Downey APRN [address] [address] PCP - General 03/20/22 06/18/22 documented as of this encounter
--- OUTSIDE RECORDS SUMMARY | 2024-07-29 14:32 | XMS_ITS | Encounter Summary ---
Author Organization [facility] Address [address] [place] [address] Care Team Providers Care Reeler Operator Name Role Phone Homar Nixon MD Primary Care Provider [phone] Telma Foster APRN Primary Care Provider [phone] Pcp, No Primary Care Provider Clarisse Parker APRN Primary Care Provider +- [phone] Encounter Details Date Type Department Care Team (Late st Contact Info) Description 07/04/2017 Scanned Document [address] [place] [address] Provider, Generic Social History Tobacco [...] on filedocumented in this encounter Care Teams Reeler Operator Relationship Specialty Start Date End Date Homar Nixon MD PCP - General Internal Medicine 06/24/17 08/13/17 Telma Foster APRN [address] [place] [address] [place] [address] PCP - General Family Medicine 08/14/17 12/21/18 Pcp, No PCP - General General Medicine 12/22/18 03/19/22 Clarisse Downey APRN [address] [place] [address] PCP - General 03/20/22 06/18/22 documented as of this encounter
--- OUTSIDE RECORDS SUMMARY | 2024-07-29 14:32 | XMS_ITS | Encounter Summary ---
Author Organization [facility] Address [address] [place] [address] Care Team Providers Care Canvas Cutter Machine Name Role Phone Clarisse Downey APRN Primary Care Provider +- [phone] Stephanie Mcmanus Primary Care Provider + [phone] Homar Nixon MD Primary Care Provider [phone] Telma Foster APRN Primary Care Provider [phone] Pcp, No Primary Care Provider Clarisse Parker APRN Primary Care Provider +- [phone] Encounter Details Date Type Department Care Team (Late st Contact Info) Description 03/17/2016 Scanned Document [address] [phone] Provider, Generic Social History Tobacco Use Types [...] on filedocumented in this encounter Care Teams Canvas Cutter Machine Relationship Specialty Start Date End Date Clarisse Downey APRN PCP - General 02/23/16 04/02/16 Stephanie Mcmanus PA PCP - General Internal Medicine 04/03/16 06/23/17 Homar Nixon MD PCP - General Internal Medicine 06/24/17 08/13/17 Telma Foster APRN [address] [facility] 101 [place] [address] PCP - General Family Medicine 08/14/17 12/21/18 Pcp, No PCP - General General Medicine 12/22/18 03/19/22 Clarisse Downey APRN [address] [place] [address] PCP - General 03/20/22 06/18/22 documented as of this encounter
--- OUTSIDE RECORDS SUMMARY | 2024-07-29 14:32 | XMS_ITS | Encounter Summary ---
Author Organization [facility] Address [address] [place] [address] Care Team Providers Care Plastic Injection Mold Maker Name Role Phone Telma Foster APRN Primary Care Provider [phone] Pcp, No Primary Care Provider Clarisse Parker APRN Primary Care Provider [phone] Encounter Details Date Type Department Care Team (Late st Contact Info) Description 07/14/2018 Scanned Document [address] [place] [address] Provider, Generic Social History Tobacco [...] on filedocumented in this encounter Care Teams Plastic Injection Mold Maker Relationship Specialty Start Date End Date Telma Foster APRN [address] [place] [address] [place], [place] [address] PCP - General Family Medicine 08/14/17 12/21/18 Pcp, No PCP - General General Medicine 12/22/18 03/19/22 Clarisse Downey APRN [address] [place] [address] [place] [address] PCP - General 03/20/22 06/18/22 documented as of this encounter
--- OUTSIDE RECORDS SUMMARY | 2024-07-29 14:32 | XMS_ITS | Encounter Summary ---
Author Organization [employer] [facility] Address [address] [place] [address] Care Team Providers Care Gymnastics Coach Or Instructor Name Role Phone Unavailable Primary Care Provider Unavailabl e Encounter Details Date Type Department Care Team (Latest Contact Info) Description 10/17/[address] [facility] CONVERSIONS Dental, Provider, DDS Social History [...]
--- OUTSIDE RECORDS SUMMARY | 2024-07-29 14:32 | XMS_ITS | Encounter Summary ---
Author Organization [facility] Address [address] [place] [address] Care Team Providers Care Tar Roofer Name Role Phone Telma Foster APRN Primary Care Provider [phone] Pcp, No Primary Care Provider Clarisse Parker APRN Primary Care Provider [phone] Reason for Visit * Reason Comments Medication Refill Encounter Details Date Type Department Care Team (Late st Contact Info) Description 08/22/2018 Refill [facility] 100 [facility] 101 [place] [address] Telma Foster APRN [address] [place] [id number] Benign essential HTN Social History Tobacco Use [...] HTN documented in this encounter Care Teams Tar Roofer Relationship Specialty Start Date End Date Telma Foster APRN [address] [facility] 101 [place] [address] PCP - General Family Medicine 08/14/17 12/21/18 Pcp, No PCP - General General Medicine 12/22/18 03/19/22 Clarisse Downey APRN [address] [place] [address] PCP - General 03/20/22 06/18/22 documented as of this encounter
--- OUTSIDE RECORDS SUMMARY | 2024-07-29 14:32 | XMS_ITS | Encounter Summary ---
Author Organization [facility] Address [address] [place] [address] Care Team Providers Care Digital Forensic Examiner Name Role Phone Telma Foster APRN Primary Care Provider [phone] Pcp, No Primary Care Provider Clarisse Parker APRN Primary Care Provider [phone] Reason for Visit * Reason Comments Medication Refill Encounter Details Date Type Department Care Team (Late st Contact Info) Description 01/12/2018 Refill [facility] [address] [place] [phone] Telma Foster APRN [address] [place] [address] [place] [address] Plantar fasciitis of right foot; Acute pain [...] knee documented in this encounter Care Teams Digital Forensic Examiner Relationship Specialty Start Date End Date Telma Foster APRN [address] [place] [address] [place] [address] PCP - General Family Medicine 08/14/17 12/21/18 Pcp, No PCP - General General Medicine 12/22/18 03/19/22 Clarisse Downey APRN [address] [address] PCP - General 03/20/22 06/18/22 documented as of this encounter
--- OUTSIDE RECORDS SUMMARY | 2024-07-29 14:32 | XMS_ITS | Encounter Summary ---
Author Organization [facility] Address [address] [place] [address] Care Team Providers Care Claims Support Specialist Name Role Phone Telma Foster APRN Primary Care Provider [phone] Pcp, No Primary Care Provider Clarisse Parker APRN Primary Care Provider [phone] Encounter Details Date Type Department Care Team (Late st Contact Info) Description 08/27/2018 Scanned Document [address] [place] [address] Provider, Generic Social History Tobacco [...] on filedocumented in this encounter Care Teams Claims Support Specialist Relationship Specialty Start Date End Date Telma Foster APRN [address] [place] [address] [place], [place] [address] PCP - General Family Medicine 08/14/17 12/21/18 Pcp, No PCP - General General Medicine 12/22/18 03/19/22 Clarisse Downey APRN [address] [place] [address] [place] [address] PCP - General 03/20/22 06/18/22 documented as of this encounter
--- OUTSIDE RECORDS SUMMARY | 2024-07-29 14:32 | XMS_ITS | Encounter Summary ---
Author Organization [facility] Address [address] [place] [address] Care Team Providers Care Card Assembler Name Role Phone Telma Foster APRN Primary Care Provider [phone] Pcp, No Primary Care Provider Clarisse Parker APRN Primary Care Provider [phone] Reason for Visit * Reason Comments Medication Refill Encounter Details Date Type Department Care Team (Late st Contact Info) Description 09/15/2017 Refill [facility] 100 [facility] 101 [place] [phone] Telma Foster APRN [address] [place] [id number] Benign essential HTN Social History Tobacco Use [...] HTN documented in this encounter Care Teams Card Assembler Relationship Specialty Start Date End Date Telma Foster APRN [address] [facility] 101 [place] [address] PCP - General Family Medicine 08/14/17 12/21/18 Pcp, No PCP - General General Medicine 12/22/18 03/19/22 Clarisse Downey APRN [address] [place] [address] PCP - General 03/20/22 06/18/22 documented as of this encounter
--- OUTSIDE RECORDS SUMMARY | 2024-07-29 14:32 | XMS_ITS | Encounter Summary ---
Author Organization [address] [address] Care Team Providers Care Counter Hand Name Role Phone Stephanie Mcmanus Primary Care Provider + [phone] Homar Nixon MD Primary Care Provider [phone] Telma Foster APRN Primary Care Provider [phone] Pcp, No Primary Care Provider Clarisse Parker APRN Primary Care Provider + [phone] Encounter Details Date Type Department Care Team (Late st Contact Info) Description 04/06/2017 Scanned Document [address] [phone] Provider, Generic Social History Tobacco [...] on filedocumented in this encounter Care Teams Counter Hand Relationship Specialty Start Date End Date Stephanie Mcmanus PA PCP - General Internal Medicine 04/03/16 06/23/17 Homar Nixon MD PCP - General Internal Medicine 06/24/17 08/13/17 Telma Foster APRN [address] [facility] 101 [place] [address] PCP - General Family Medicine 08/14/17 12/21/18 Pcp, No PCP - General General Medicine 12/22/18 03/19/22 Clarisse Downey APRN [address] [address] PCP - General 03/20/22 06/18/22 documented as of this encounter
--- OUTSIDE RECORDS SUMMARY | 2024-07-29 14:32 | XMS_ITS | Encounter Summary ---
Author Organization [address] [address] Care Team Providers Care Administrative Services Assistant Name Role Phone Stephanie Mcmanus Primary Care Provider + [phone] Homar Nixon MD Primary Care Provider [phone] Telma Foster APRN Primary Care Provider [phone] Pcp, No Primary Care Provider Clarisse Parker APRN Primary Care Provider + [phone] Encounter Details Date Type Department Care Team (Late st Contact Info) Description 04/20/2016 Scanned Document [address] [phone] Provider, Generic Social History Tobacco [...] on filedocumented in this encounter Care Teams Administrative Services Assistant Relationship Specialty Start Date End Date Stephanie Mcmanus PA PCP - General Internal Medicine 04/03/16 06/23/17 Homar Nixon MD PCP - General Internal Medicine 06/24/17 08/13/17 Telma Foster APRN [address] [place] [address] [place] [address] PCP - General Family Medicine 08/14/17 12/21/18 Pcp, No PCP - General General Medicine 12/22/18 03/19/22 Clarisse Downey APRN [address] [place] [address] PCP - General 03/20/22 06/18/22 documented as of this encounter
--- OUTSIDE RECORDS SUMMARY | 2024-07-29 14:32 | XMS_ITS | Encounter Summary ---
Author Organization [employer] [facility] Address [address] [place] [address] [address] [place] [address] Care Team Providers Care Respiratory Therapy Aide Name Role Phone Unavailable Primary Care Provider [...]
--- OUTSIDE RECORDS SUMMARY | 2024-07-29 14:32 | XMS_ITS | Encounter Summary ---
Author Organization [address] [address] Care Team Providers Care Theater Projectionist Name Role Phone Stephanie Mcmanus Primary Care Provider + [phone] Homar Nixon MD Primary Care Provider [phone] Telma Foster APRN Primary Care Provider [phone] Pcp, No Primary Care Provider Clarisse Parker APRN Primary Care Provider + [phone] Encounter Details Date Type Department Care Team (Late st Contact Info) Description 03/28/2017 Scanned Document [address] [phone] Provider, Generic Social History Tobacco [...] on filedocumented in this encounter Care Teams Theater Projectionist Relationship Specialty Start Date End Date Stephanie Mcmanus PA PCP - General Internal Medicine 04/03/16 06/23/17 Homar Nixon MD PCP - General Internal Medicine 06/24/17 08/13/17 Telma Foster APRN [address] [facility] 101 [place] [address] PCP - General Family Medicine 08/14/17 12/21/18 Pcp, No PCP - General General Medicine 12/22/18 03/19/22 Clarisse Downey APRN [address] [address] PCP - General 03/20/22 06/18/22 documented as of this encounter
--- OUTSIDE RECORDS SUMMARY | 2024-07-29 14:32 | XMS_ITS | Encounter Summary ---
Author Organization [facility] Address [address] [place] [address] Care Team Providers Care Associate Account Manager Name Role Phone Stephanie Mcmanus Primary Care Provider + [phone] Homar Nixon MD Primary Care Provider [phone] Telma Foster APRN Primary Care Provider [phone] Pcp, No Primary Care Provider Clarisse Parker APRN Primary Care Provider + [phone] Reason for Visit * Reason Comments Medication Refill Encounter Details Date Type Department Care Team (Late st Contact Info) Description 06/05/[address] [phone] Telma Foster APRN [address] [place] [address] Benign essential HTN Social History Tobacco Use [...] HTN documented in this encounter Care Teams Associate Account Manager Relationship Specialty Start Date End Date Stephanie Mcmanus PA PCP - General Internal Medicine 04/03/16 06/23/17 Homar Nixon MD PCP - General Internal Medicine 06/24/17 08/13/17 Telma Foster APRN [address] [facility] 101 [place] [address] PCP - General Family Medicine 08/14/17 12/21/18 Pcp, No PCP - General General Medicine 12/22/18 03/19/22 Clarisse Downey APRN [address] [address] PCP - General 03/20/22 06/18/22 documented as of this encounter
--- OUTSIDE RECORDS SUMMARY | 2024-07-29 14:32 | XMS_ITS | Encounter Summary ---
Author Organization [facility] Address [address] [place] [address] Care Team Providers Care Manager Product Support Name Role Phone Telma Foster APRN Primary Care Provider [phone] Pcp, No Primary Care Provider Clarisse Parker APRN Primary Care Provider [phone] Reason for Visit * Reason Comments Medication Refill Encounter Details Date Type Department Care Team (Late st Contact Info) Description 02/24/2018 Refill [facility] 100 [facility] 101 [place] [address] Telma Foster APRN [address] [phone] Benign essential HTN Social History Tobacco Use [...] HTN documented in this encounter Care Teams Manager Product Support Relationship Specialty Start Date End Date Telma Foster APRN [address] [facility] 101 [place] [address] PCP - General Family Medicine 08/14/17 12/21/18 Pcp, No PCP - General General Medicine 12/22/18 03/19/22 Clarisse Downey APRN [address] [place] [address] PCP - General 03/20/22 06/18/22 documented as of this encounter
--- OUTSIDE RECORDS SUMMARY | 2024-07-29 14:32 | XMS_ITS | Encounter Summary ---
Author Organization [facility] Address [address] [place] [address] Care Team Providers Care Environmental Engineering Intern Name Role Phone Telma Foster APRN Primary Care Provider [phone] Pcp, No Primary Care Provider Clarisse Parker APRN Primary Care Provider [phone] Encounter Details Date Type Department Care Team (Late st Contact Info) Description 02/20/2018 Scanned Document [address] [place] [address] Provider, Generic Social History Tobacco [...] on filedocumented in this encounter Care Teams Environmental Engineering Intern Relationship Specialty Start Date End Date Telma Foster APRN [address] [place], [place] [address] PCP - General Family Medicine 08/14/17 12/21/18 Pcp, No PCP - General General Medicine 12/22/18 03/19/22 Clarisse Downey APRN [address] [place] [address] [place] [address] PCP - General 03/20/22 06/18/22 documented as of this encounter
--- OUTSIDE RECORDS SUMMARY | 2024-07-29 14:32 | XMS_ITS | Encounter Summary ---
Author Organization [facility] Address [address] [place] [address] Care Team Providers Care Locomotive Repairer Diesel Name Role Phone Telma Foster APRN Primary Care Provider [phone] Pcp, No Primary Care Provider Clarisse Parker APRN Primary Care Provider [phone] Encounter Details Date Type Department Care Team (Late st Contact Info) Description 12/19/2017 Scanned Document [address] [place] [address] Provider, Generic Social History Tobacco [...] on filedocumented in this encounter Care Teams Locomotive Repairer Diesel Relationship Specialty Start Date End Date Telma Foster APRN [address] [place], [place] [address] PCP - General Family Medicine 08/14/17 12/21/18 Pcp, No PCP - General General Medicine 12/22/18 03/19/22 Clarisse Downey APRN [address] [place] [address] [place] [address] PCP - General 03/20/22 06/18/22 documented as of this encounter
--- OUTSIDE RECORDS SUMMARY | 2024-07-29 14:32 | XMS_ITS | Encounter Summary ---
Author Organization [facility] Address [address] [place] [address] Care Team Providers Care Wood Machine Carver Name Role Phone Telma Foster APRN Primary Care Provider [phone] Pcp, No Primary Care Provider Clarisse Parker APRN Primary Care Provider [phone] Encounter Details Date Type Department Care Team (Late st Contact Info) Description 03/26/2018 Scanned Document [address] [place] [address] Provider, Generic Social History Tobacco [...] on filedocumented in this encounter Care Teams Wood Machine Carver Relationship Specialty Start Date End Date Telma Foster APRN [address] [place] [address] [place], [place] [address] PCP - General Family Medicine 08/14/17 12/21/18 Pcp, No PCP - General General Medicine 12/22/18 03/19/22 Clarisse Downey APRN [address] [place] [address] [place] [address] PCP - General 03/20/22 06/18/22 documented as of this encounter
--- OUTSIDE RECORDS SUMMARY | 2024-07-29 14:32 | XMS_ITS | Encounter Summary ---
Author Organization [facility] Address [address] [place] [address] Care Team Providers Care Alteration Worker Name Role Phone Homar Nixon MD Primary Care Provider [phone] Telma Foster APRN Primary Care Provider [phone] Pcp, No Primary Care Provider Clarisse Parker APRN Primary Care Provider [phone] Encounter Details Date Type Department Care Team (Late st Contact Info) Description 07/19/2017 Scanned Document [address] [place] [address] Provider, Generic Social History Tobacco [...] on filedocumented in this encounter Care Teams Alteration Worker Relationship Specialty Start Date End Date Homar Nixon MD PCP - General Internal Medicine 06/24/17 08/13/17 Telma Foster APRN [address] [place] [address] [place] [address] PCP - General Family Medicine 08/14/17 12/21/18 Pcp, No PCP - General General Medicine 12/22/18 03/19/22 Clarisse Downey APRN [address] [place] [address] PCP - General 03/20/22 06/18/22 documented as of this encounter
--- OUTSIDE RECORDS SUMMARY | 2024-07-29 14:32 | XMS_ITS | Clinical Summary ---
Author Organization [employer] Address [address] [place] [address] 7 [place] [address] Care Team Providers Care Buffing And Sueding Machine Operator Name Role Phone Unavailable Primary Care Provider [...] Panel 1968 SDOH Screening 1968 Sigmoidoscopy 1968 Disability Screening 1968 Alcohol/Substance Use Screening 1980 Hepatitis C [...] Most Recently Relevant to Health Maintenance Insurance [facility] MEDICAID STAND ADULT
--- OUTSIDE RECORDS SUMMARY | 2024-07-29 14:32 | XMS_ITS | Encounter Summary ---
Author Organization [facility] Address [address] [place] [address] Care Team Providers Care Shot Lighter Name Role Phone Telma Foster APRN Primary Care Provider [phone] Pcp, No Primary Care Provider Clarisse Parker APRN Primary Care Provider [phone] Reason for Visit * Reason Comments Medication Refill Encounter Details Date Type Department Care Team (Late st Contact Info) Description 09/02/2018 Refill [facility] 100 [facility] [address] [place] [phone] Telma Foster APRN [address] [place] [address] Acute left-sided low back pain without sciatica; [...] kidney documented in this encounter Care Teams Shot Lighter Relationship Specialty Start Date End Date Telma Foster APRN [address] [place] [address] PCP - General Family Medicine 08/14/17 12/21/18 Pcp, No PCP - General General Medicine 12/22/18 03/19/22 Clarisse Downey APRN [address] [place] [address] PCP - General 03/20/22 06/18/22 documented as of this encounter
--- OUTSIDE RECORDS SUMMARY | 2024-07-29 14:32 | XMS_ITS | Encounter Summary ---
Author Organization [facility] Address [address] [place] [address] Care Team Providers Care Finished Goods Planner Name Role Phone Stephanie Mcmanus Primary Care Provider [phone] Homar Nixon MD Primary Care Provider [phone] Telma Foster APRN Primary Care Provider [phone] Pcp, No Primary Care Provider Clarisse Parker APRN Primary Care Provider + [phone] Reason for Visit * Reason Comments Medication Refill Encounter Details Date Type Department Care Team (Late st Contact Info) Description 02/26/[address] [place] [phone] Stephanie Mcmanus PA [address] [place] [address] Plantar fasciitis of right foot; Acute pain [...] HTN documented in this encounter Care Teams Finished Goods Planner Relationship Specialty Start Date End Date Stephanie Mcmanus PA PCP - General Internal Medicine 04/03/16 06/23/17 Homar Nixon MD PCP - General Internal Medicine 06/24/17 08/13/17 Telma Foster APRN [address] [place] [address] PCP - General Family Medicine 08/14/17 12/21/18 Pcp, No PCP - General General Medicine 12/22/18 03/19/22 Clarisse Downey APRN [address] [place] [address] PCP - General 03/20/22 06/18/22 documented as of this encounter
--- OUTSIDE RECORDS SUMMARY | 2024-07-29 14:32 | XMS_ITS | Clinical Summary ---
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 Molecular Analysis spoke with patient 06/2020 and discussed the options with her. ??Is not interested in going directly to surgery at this point. ??I told her it would be well to repeat the biopsy in the middle of July and will be done at [facility] where tissue can be saved for molecular analysis IF this is necessary Seen by Dr. Brian Lara at [facility] in 09/2020 for removal of thyroid nodule, as she has abnormal findings on FNA C. Last Assessment & Plan: Seen by Dr. Brian Lara at [facility] in 09/2020 for removal of thyroid nodule, as she has abnormal findings on FNA C. As per her, surgeon is booked for 3 months, most likely she might be scheduling him March 2019 she is closely following with him. Disorder of joint of spine 09/21/2019 0 12/05/2020 Obstructive sleep apnea 05/04/201911/10 Overview (12/05/2020): [facility] Polysomnogram: Date 04/28/2019; Wt [...] Overview (12/05/2020): Last Assessment & Plan: Reviewed cosmetic consultant note, she is getting knee injections-her [...] 50+ Ye ars (2 of 2 - PPSV23, PCV20, or PCV21) 08/31/2014 07/06/2014 Colorectal Cancer Screening: Annual FOBT [...] to 49 Years) Discontinued 07/06/2014 Insurance Medicaid Medicaid Care Teams Chainstitch Pants Outseamer Relationship Specialty Start Date End Date Criselda Sosa APRN [address] [place] [address] PCP - General Hematology and Oncology 12/04/22
--- OUTSIDE RECORDS SUMMARY | 2024-07-29 14:32 | XMS_ITS | Encounter Summary ---
Author Organization [facility] Address [address] [place] [address] Care Team Providers Care Ring Spinner Name Role Phone Telma Foster APRN Primary Care Provider Pcp, No Primary Care Provider Clarisse Parker APRN Primary Care Provider [phone] Reason for Visit * Reason Comments Medication Refill Encounter Details Date Type Department Care Team (Late st Contact Info) Description 05/29/2018 Refill [facility] 100 [facility] [address] [place] [phone] Telma Foster APRN [address] [place] [address] Right medial knee pain (Primary Dx); Benign [...] HTN documented in this encounter Care Teams Ring Spinner Relationship Specialty Start Date End Date Telma Foster APRN [address] [place] [address] PCP - General Family Medicine 08/14/17 12/21/18 Pcp, No PCP - General General Medicine 12/22/18 03/19/22 Clarisse Downey APRN [address] [address] PCP - General 03/20/22 06/18/22 documented as of this encounter
--- OUTSIDE RECORDS SUMMARY | 2024-07-29 14:33 | XMS_ITS | Encounter Summary ---
Author Organization [facility] Address [address] [place] [address] Care Team Providers Care Transmission Inspector Name Role Phone Clarisse Downey APRN Primary Care Provider + [phone] Stephanie Mcmansu Primary Care Provider [phone] Homar Nixon MD Primary Care Provider [phone] Telma Foster APRN Primary Care Provider [phone] Pcp, No Primary Care Provider Clarisse Parker APRN Primary Care Provider + [phone] Clarisse Downey APRN Primary Care Provider + [phone] Encounter Details Date Type Department Care Team (Late st Contact Info) Description 03/31/2015 Scanned Document [address] [place] [phone] Provider, Generic Social History Tobacco Use [...] on filedocumented in this encounter Care Teams Transmission Inspector Relationship Specialty Start Date End Date Clarisse Downey APRN PCP - General 02/23/16 04/02/16 Stephanie Mcmanus PA PCP - General Internal Medicine 04/03/16 06/23/17 Homar Nixon MD PCP - General Internal Medicine 06/24/17 08/13/17 Telma Foster APRN [address] [place] [address] PCP - General Family Medicine 08/14/17 12/21/18 Pcp, No PCP - General General Medicine 12/22/18 03/19/22 Clarisse Downey APRN [address] [address] PCP - General 02/22/16 Clarisse Downey APRN [address] [address] PCP - General 03/20/22 06/18/22 documented as of this encounter
== END 2024-07-29 14:45 | disposition home or self-care (01) ==
LOC: HO.HOS 14:04
PROVIDERS: PCP Nurse Practitioner Family; Visit Provider Physician Assistant
DX: M17.0 Bilateral primary osteoarthritis of knee (principal)
CPT/HCPCS: 99213; G2211

== ENCOUNTER → 2024-07-29 14:02 | Outpatient (BNVA) | payer OTHER, SELFPAY | PROVIDERS: PCP Nurse Practitioner Family; Visit Provider Physician Assistant | DX: M17.0 Bilateral primary osteoarthritis of knee (principal); M25.572 Pain in left ankle and joints of left foot; R26.89 Other abnormalities of gait and mobility | CPT/HCPCS: 99212 ==

== ENCOUNTER 2024-08-12 09:39 | Outpatient (AMB) | payer OTHER, SELFPAY ==
--- NOTE | 2024-08-12 09:48 | MHC.OFFVIS ---
Intake Visit Reasons: INJ Left Knee Injection, last inj 02/24/24 Intake Note: Delores is a 53 year old female who presents today for bilateral knee injections. Patient would like to discuss cortisone and gel injections today. Allergies seafood Allergy (Verified 08/12/24 10:00) Anaphylaxis tree nut Allergy (Verified 08/12/24 10:00) Anaphylaxis banana Adverse Reaction (Verified 08/12/24 10:00) Vomiting Seasonal Allergies Adverse Reaction (Verified 08/12/24 10:00) Sneezing sergio stings Allergy (Uncoded 08/12/24 10:00) Swelling HPI HPI INJ Left Knee Injection, last inj 02/24/24: Details: 53-year-old female returns to the office today for bilateral knee pain. She has seen me in the past and was holding off on injections because she was going away. She returns today with increased pain in the knees with prolonged standing and walking. 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 Tenderness along the medial and lateral joint line. Full ROM with crepitus. Negative Finesse?s. No ligamentous laxity. NVI. Office Procedures AMB Joint Injection/Aspiration Joint Injection/Aspiration Details: bilat knee durolane injections with steroid Primary Site: right knee Secondary Site: left knee Injected: 40 mg of, DepoMedrol, with 8 mL of, 1% plain lidocaine and in the joint Approach Used: anterolateral Procedure: The patient tolerated the procedure well and there was some relief with the local anesthesia Coding 46607 - Glenohumeral/Tronchanteric Bursa/Intraarticular Procedure code (CPT) selection complete Assessment & Plan Assessment & Plan (1) Osteoarthritis of knees, bilateral: Code(s): M17.0 - Bilateral primary osteoarthritis of knee Category: Medical Plan: We discussed options today which include bilateral steroid injection. I also discussed the benefits of the gel injections and we decided to proceed with both bilateral knee steroid injection with gel injection. The patient tolerated the procedure well. She will advance activities as tolerated. She can use ice and anti-inflammatories as needed. We also discussed the effect of steroid on her sugars and explained she needs to monitor her sugars over the next 72 hours in the event her sugar levels rise from the steroid. Patient does express understanding and will see me back as needed. Coding Level of Care Code Est Pt Level 3 (47734) Complex EM visit Add On G2211 Diagnoses Osteoarthritis of knees, bilateral M17.0 CPT Codes Coding - Joint 7: 30518 - Glenohumeral/Tronchanteric Bursa/Intraarticular ([id number])
--- OUTSIDE RECORDS SUMMARY | 2024-08-12 10:08 | XMS_ITS | Clinical Summary ---
Author Organization [facility] Address [address] [place] [address] Care Team Providers Care Sustainability Purchasing Agent Name Role Phone Cristian Telma Virgen HOLT Primary Care Provider [phone] Allergies Active Allergy Reactions Criticality Noted Date [...] 11 03/02/2016 Active ergocalciferol (VITAMIN D2) capsule 30535 units Take 50,000 Units by mouth. 0 Active pantoprazole (PROTONIX) 40 MG tablet 0 04/16/2016 Active montelukast (SINGULAIR) 10 MG tablet Take 10 mg by mouth. 0 Active Lidocaine-Hydrocorti sone Pedro 2-2 % KIT 0 03/07/2016 Active Ferrous Xhlkfbilh-N-Gwuoq Acid (IRON-C PO) Take by mouth. 0 [...] age to complete this topic Care Teams Sustainability Purchasing Agent Relationship Specialty Start Date End Date Telma Foster APRN [address] [place] [address] PCP - General Unknown Physician Specialty 07/19/17
== END 2024-08-12 11:07 | disposition home or self-care (01) ==
LOC: HO.HOS 09:40
PROVIDERS: PCP Nurse Practitioner Family; Visit Provider Physician Assistant
DX: M17.0 Bilateral primary osteoarthritis of knee (principal)
CPT/HCPCS: 20610; 99213

== ENCOUNTER → 2024-08-12 09:39 | Outpatient (BNVA) | payer OTHER, SELFPAY | PROVIDERS: PCP Nurse Practitioner Family; Visit Provider Physician Assistant | DX: M17.0 Bilateral primary osteoarthritis of knee (principal) | CPT/HCPCS: 20610; 99212; J1010; J2003; J7318 ==

== ENCOUNTER 2024-12-23 11:26 | Outpatient (AMB) | payer OTHER, SELFPAY ==
--- NOTE | 2024-12-23 11:28 | HO.NEPHOV_ITS ---
Vital Signs 12/23/24 11:42 Height 5 ft 3 in BP 112/80 Blood Pressure Location Lt brachial Position Sitting Pulse 94 Pulse Source Pulse Oximeter Pulse Oximetry (%) 100 Oxygen Delivery Method Room Air Intake Visit Reasons: 6 MO FU-Conf Director Of Graduate Medical Education Required: No Accompanied by: Self / Same As Patient Allergies seafood Allergy (Verified 12/23/24 11:37) Anaphylaxis tree nut Allergy (Verified 12/23/24 11:37) Anaphylaxis banana Adverse Reaction (Verified 12/23/24 11:37) Vomiting Seasonal Allergies Adverse Reaction (Verified 12/23/24 11:37) Sneezing sergio stings Allergy (Uncoded 08/12/24 10:00) Swelling HPI Comments Details: Delores was seen in follow up for hypertension. She is trying to loose weight. She is on Trulicity. She had SOBE and was found to be AFib. She has been initiated on Elquis. Her BP is well controlled on current medication regimen. She does not have any chest pain, SOB, nausea, vomiting, hematuria, edema or orthostatic symptoms. She does not take excess NSAID's and tries to keep up with good hydration. She denied any retinopathy or proteinuria. She had no new active complaints at the time of this office visit. 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, Review of Systems Const All systems reviewed & are unremarkable except as noted in HPI and below Physical Exam Vital Signs: Last Vital Signs Pulse 94 12/23/24 11:42 BP 112/80 12/23/24 11:42 Pulse Ox 100 12/23/24 11:42 Oxygen Delivery Method Room Air 12/23/24 11:42 Assessment & Plan Assessment & Plan (1) Cardiomyopathy: Code(s): I42.9 - Cardiomyopathy, unspecified Category: Medical Qualifiers: Cardiomyopathy type: other Qualified Code(s): I42.8 - Other cardiomyopathies (2) Hypertension: Code(s): I10 - Essential (primary) hypertension Category: Medical Qualifiers: Hypertension type: primary hypertension Qualified Code(s): I10 - Essential (primary) hypertension Plan Blood pressure needs to be kept at goal No H/O LVH/retinopathy/proteinuria No H/O renal dysfunction; No orthostasis Needs continued life style modification/weight loss On Spironolactone and Entresto Needs to maintain good hydration/minimal NSAID's No medication changes today; Has a cards F/U appointment Answered all questions; F/U given Orders: Orders Creatinine 4 Weeks I10 - Essential (primary) hypertension, I42.9 - Cardiomyopathy, unspecified IRON PROFILE 4 Weeks I10 - Essential (primary) hypertension, I42.9 - Cardiomyopathy, unspecified Ferritin 4 Weeks I10 - Essential (primary) hypertension, I42.9 - Cardiomyopathy, unspecified Electrolytes 4 Weeks I10 - Essential (primary) hypertension, I42.9 - Cardiomyopathy, unspecified Blood Urea Nitrogen 4 Weeks I10 - Essential (primary) hypertension, I42.9 - Cardiomyopathy, unspecified Coding Level of Care Code Est Pt Level 4 (16248) Diagnoses Other cardiomyopathy I42.8 Cardiomyopathy type: other Primary hypertension I10 Hypertension type: primary hypertension
[2024-12-23 11:42] VITALS: BP 112/80; PULSE 94; O2SAT 100
== END 2024-12-23 12:13 | disposition home or self-care (01) ==
LOC: HO.HKA 11:26
PROVIDERS: PCP Nurse Practitioner Family; Visit Provider Internal Medicine Nephrology
DX: I42.8 Other cardiomyopathies (principal); I10 Essential (primary) hypertension
CPT/HCPCS: 99214

== ENCOUNTER → 2024-12-23 11:26 | Outpatient (BNVA) | payer OTHER, SELFPAY | PROVIDERS: PCP Nurse Practitioner Family; Visit Provider Internal Medicine Nephrology | DX: I42.8 Other cardiomyopathies (principal); I10 Essential (primary) hypertension | CPT/HCPCS: 99212 ==

== ENCOUNTER 2024-12-28 14:05 | Outpatient (AMB) | payer OTHER, SELFPAY ==
--- NOTE | 2024-12-28 14:14 | A.OFFVIS_ITS ---
Vital Signs 12/28/24 14:16 Height 5 ft 3 in Weight 267 lb BMI 47.3 Intake Visit Reasons: Newprob-Right knee radiating down leg/limited W/B Intake Note: Delores is a 54 year old female who presents today established patient, new problem visit to evaluate right leg pain. Patient reports pain that starts at the posterior side of thigh and travels down her leg to her foot. Her discomfort has been present that past few weeks and is getting worse waking her up at night. States that she was recently seen at an urgent care due to her pain, she was told having believes she has a pinched nerve. She tried lidocaine patches, however started having heart palpitations. Complaints of tingling sensation in her leg. She is requesting further imaging. No other treatments. Allergies seafood Allergy (Verified 12/28/24 14:26) Anaphylaxis tree nut Allergy (Verified 12/28/24 14:26) Anaphylaxis banana Adverse Reaction (Verified 12/28/24 14:26) Vomiting Seasonal Allergies Adverse Reaction (Verified 12/28/24 14:26) Sneezing sergio stings Allergy (Uncoded 12/28/24 14:26) Swelling Medication List - Last Reconciled 12/28/24 by Bonilla Belle PA-C apixaban (Eliquis) 5 mg PO BID bupropion HCl 150 mg PO DAILY carvedilol 3.125 mg PO BID cetirizine 10 mg PO DAILY clotrimazole 1% 1 appl topical QAM AND QHS empagliflozin (Jardiance) 10 mg PO DAILY lidocaine 5% 1 patch topical DAILY montelukast 10 mg PO DAILY pantoprazole 40 mg PO DAILY sacubitril-valsartan 24-26 mg (Entresto) 1 tab PO BID spironolactone 25 mg PO DAILY tirzepatide (Mounjaro) 2.5 mg subcut QWEEK HPI HPI Newprob-Right knee radiating down leg/limited W/B: Details: 54 yo female presents to the office today for discomfort behind the right knee. She states she was seen at an Urgent care because the pain goes down the leg and into the foot. She had difficulty with bending the knee. She denies pain in the buttock region but when she was seen at Urgen care and they palpated the low back region she did have pain . She does bace burning along with N/T down the leg into the foot. She does feel there are a few times the leg was going to give out and she had some weakness. 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 She also has weakness with dorsi and plantar flexion. NVI. Assessment & Plan Assessment & Plan (1) Lumbar radiculopathy: Code(s): M54.16 - Radiculopathy, lumbar region Category: Medical Plan: At this time an order for an EMG/NCS was ordered to further evaluate the extent of her weakness and n/t down the RLE. I also placed an order for PT in the sense there may be a component of this that is caused by her back, this will help to alleviate a source to her pain . Once the EMG is complete, I will review and contact her to discuss the next step in her treatment. She is content with this plan . Orders: Orders NE nerve conduction velocity Today R20.0 - Anesthesia of skin, R20.2 - Paresthesia of skin NE electromyogram (EMG) Today R20.0 - Anesthesia of skin, R20.2 - Paresthesia of skin PT Evaluation and Treatment Today M54.16 - Radiculopathy, lumbar region Coding Level of Care Code Est Pt Level 3 (07347) Complex EM visit Add On G2211 Diagnoses Lumbar radiculopathy M54.16
[2024-12-28 14:16] VITALS: BMI 47.3
== END 2024-12-28 14:38 | disposition home or self-care (01) ==
LOC: HO.HOS 14:05
PROVIDERS: PCP Nurse Practitioner Family; Visit Provider Physician Assistant
DX: M54.16 Radiculopathy, lumbar region (principal)
CPT/HCPCS: 99213

== ENCOUNTER → 2024-12-28 14:05 | Outpatient (BNVA) | payer OTHER, SELFPAY | PROVIDERS: PCP Nurse Practitioner Family; Visit Provider Physician Assistant | DX: M54.16 Radiculopathy, lumbar region (principal); R20.0 Anesthesia of skin; R20.2 Paresthesia of skin | CPT/HCPCS: 99212 ==

== ENCOUNTER 2025-03-02 12:35 | Outpatient (AMB) | payer OTHER, SELFPAY ==
--- OUTSIDE RECORDS SUMMARY | 2025-02-26 16:45 | XMS_ITS | Encounter Summary ---
Author Organization [facility] [place] [address] Care Team Providers Care Wind Instrument Repairer Name Role Phone Kareen Caldwell MD Primary Care Provider Encounter Details Date Type Department Care Team (Late st Contact Info) Description 02/26/2025 4:45 PM EST Lab Draw Station - [address] [phone] Hypokalemia; Longstanding persistent atrial fibrillation (CMS/HCC V24, CMS/HCC V28) Social History Tobacco Use Types Packs/Day Years Used Date Smoking Tobacco: Former Cigarettes 0 Q uit: 03/11/2021 Smokeless Tobacco: Never Alcohol Use Standard Drinks/Week Comments Yes 0 (1 standard drink = 0.6 oz pur e alcohol) rare Housing Instability Answer Date Recorde d Are [...] care for your loved ones. For example, childbirth educator or elderly care for an older adult? [...] Date Recorded What is your living situation? Unrecognized valu e 06/15/2024 Comments No Sex and Gender Information Value Date Recorded Sex Assigned at Female 08/14/2024 10:14 AM EDT Legal Sex Female 4:46 AM EST Gender Identity Not on file Sexual Orientation Not on file documented as of this encounter Plan of Treatment Upcoming Encounters Date Type Department Care Team (Late st Contact Info) Description 03/24/2025 2:00 PM EST Office Visit Adult Medicine [facility] [address] [place] [address] Mike Talbert PA [address] [place] [address] 03/31/2025 10:10 AM EST Office Visit [facility] - [address] [place] [phone] Ally Brand PA [address] [place] [address] [place] [phone] documented as of this encounter Procedures Procedure Name Priority Date/Time Associated Diagnosis Comments PROTHROMBIN TIME WITH INR Routine 02/26/2025 4:47 PM EST Longstanding persistent atrial fibrillation (CMS/HCC V24, CMS/HCC V28) COMPLETE BLOOD COUNT Routine 02/26/2025 4:47 PM EST Longstanding persistent atrial fibrillation (CMS/HCC V24, CMS/HCC V28) BASIC METABOLIC PANEL Routine 02/26/2025 4:47 PM EST Hypokalemia documented in this encounter Results * (ABNORMAL) Prothrombin time with INR (02/26/2025 4:47 PM EST) Protime 15.7(H) 10.6 - 13.9 sec LAB COAGULATION METHOD 02/26/2025 5:46 PM EST [facility] INR 1.3 LAB COAGULATION METHOD 02/26/2025 5:46 PM EST [facility] Blood Venous blood specimen / Unknown Venipuncture / Unknown 02/26/2025 4:47 PM EST 02/26/2025 4:47 PM EST us Kelly Yanez MD LAB BLOOD ORDERABLES Final Result [facility] [address] [place] [address], * (ABNORMAL) Complete blood count (02/26/2025 4:47 PM EST) WBC 8.9 4.8 - 10.8 K/mcL LAB HEMETOLOGY METHOD 02/26/2025 5:37 PM [facility] RBC 5.30(H) 3.80 - 4.80 M/mcL LAB HEMETOLOGY METHOD 02/26/2025 5:37 PM [facility] Hemoglobin 13.7 11.5 - 16.0 g/dL LAB HEMETOLOGY METHOD 02/26/2025 5:37 PM [facility] Hematocrit 41.9 35.0 - 47.0 % LAB HEMETOLOGY METHOD 02/26/2025 5:37 PM [facility] MCV 78.9(L) 79.0 - 98.0 FL LAB HEMETOLOGY METHOD 02/26/2025 5:37 PM [facility] MCH 25.8(L) 27.0 - 32.0 pcg LAB HEMETOLOGY METHOD 02/26/2025 5:37 PM [facility] MCHC 32.7 32.0 - 37.0 g/dL LAB HEMETOLOGY METHOD 02/26/2025 5:37 PM [facility] RDW 13.4 11.0 - 15.0 % LAB HEMETOLOGY METHOD 02/26/2025 5:37 PM [facility] Platelets 310 130 - 400 K/mcL LAB HEMETOLOGY METHOD 02/26/2025 5:37 PM [facility] MPV 11.1(H) 7.0 - 11.0 FL LAB HEMETOLOGY METHOD 02/26/2025 5:37 PM [facility] NRBC 0.0 <1.0 % LAB HEMETOLOGY METHOD 02/26/2025 5:37 PM [facility] NRBC Absolute 0.00 <0.10 K/mcL LAB HEMETOLOGY METHOD 02/26/2025 5:37 PM [facility] Blood Venous blood specimen / Unknown Venipuncture / Unknown 02/26/2025 4:47 PM EST 02/26/2025 4:47 PM EST us Kelly Yanez MD LAB BLOOD ORDERABLES Final Result [facility] [address] [place] [address], [place] [phone] * (ABNORMAL) Basic metabolic panel (02/26/2025 4:47 PM EST) Sodium 140 133 - 145 mmol/L 02/26/2025 5:59 PM [facility] Potassium 3.7 3.5 - 5.5 mmol/L 02/26/2025 5:59 PM [facility] Chloride 102 96 - 110 mmol/L 02/26/2025 5:59 PM [facility] CO2 30 21 - 32 mmol/L 02/26/2025 5:59 PM [facility] Anion Gap 8 3 - 11 02/26/2025 5:59 PM [facility] Glucose 110(H) 70 - 100 mg/dL 02/26/2025 5:59 PM [facility] BUN 12 5 - 25 mg/dL 02/26/2025 5:59 PM [facility] Creatinine 1.08 0.50 - 1.10 mg/dL 02/26/2025 5:59 PM [facility] eGFR 60 >=60 mL/min/1. 73m2 02/26/2025 5:59 PM [facility] Comment:Calculation based on the Chronic Kidney Disease Epidemiology Collaboration (CKD-EPI) equation refit without adjustment for race. BUN/Creatinine Ratio 11.1 02/26/2025 5:59 PM [facility] Calcium 9.8 8.5 - 10.5 mg/dL 02/26/2025 5:59 PM [facility] Blood Venous blood specimen / Unknown Venipuncture / Unknown 02/26/2025 4:47 PM EST 02/26/2025 4:47 PM EST us Micki Beaulieu AGING ROOM HAND LAB BLOOD ORDERABLES Final Res ult [facility] ([facility] [address] [place] [address], documented in this encounter Visit Diagnoses Diagnosis Hypokalemia Hypopotassemia Longstanding persistent atrial fibrillation (CMS/HCC V24, CMS/HCC V28) documented in this encounter Additional Health Concerns Assessment Noted Time PHQ-9 Depression Total Score: 6 06/16/19 25 12:18 PM EDT documented as of this encounter Care Teams Wind Instrument Repairer Relationship Specialty Start Date End Date Kareen Caldwell MD [address] [place] [address] PCP - General Internal Medicine 03/24/24 documented as of this encounter
[2025-03-02 12:36] VITALS: BP 110/72; PULSE 86; O2SAT 100; BMI 45.7
--- NOTE | 2025-03-02 12:36 | HO.NEPHOV ---
Vital Signs 03/02/25 12:36 Height 5 ft 3 in Weight 258 lb BMI 45.7 BP 110/72 Blood Pressure Location Rt brachial Position Sitting Pulse 86 Pulse Source Pulse Oximeter Pulse Oximetry (%) 100 Oxygen Delivery Method Room Air Intake Visit Reasons: 6 wks f/u w/ labs-Conf Wire Winding Machine Tender Required: No Accompanied by: Self / Same As Patient Allergies seafood Allergy (Verified 03/02/25 12:38) Anaphylaxis tree nut Allergy (Verified 03/02/25 12:38) Anaphylaxis banana Adverse Reaction (Verified 03/02/25 12:38) Vomiting Seasonal Allergies Adverse Reaction (Verified 03/02/25 12:38) Sneezing sergio stings Allergy (Uncoded 12/28/24 14:26) Swelling HPI Comments Details: Delores was seen in follow up for hypertension. She is trying to loose weight. She is on Trulicity. She had SOBE and was found to be AFib. She is on Elquis. She is going to have ablation for AFib tomorrow. Her BP is well controlled on current medication regimen. She does not have any chest pain, SOB, nausea, vomiting, hematuria, edema or orthostatic symptoms. She does not take excess NSAID's and tries to keep up with good hydration. She denied any retinopathy or proteinuria. She had no new active complaints at the time of this office visit. 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, Review of Systems Const All systems reviewed & are unremarkable except as noted in HPI and below Physical Exam Vital Signs: Last Vital Signs Pulse 86 03/02/25 12:36 BP 110/72 03/02/25 12:36 Pulse Ox 100 03/02/25 12:36 Oxygen Delivery Method Room Air 03/02/25 12:36 BMI result Body Mass Index 45.7 Const General: comfortable and no acute distress Orientation/consciousness: patient oriented x3 HEENT Head: Yes normocephalic Mouth: Normal oral and palatal mucosa present Eyes EOM: EOMs intact bilaterally Neck Neck: Yes supple Resp Auscultation: clear to auscultation bilaterally Cardio Jugular venous distension: no JVD Rate: regular rate GI Palpation (GI): Soft to palpation Auscultation: normal bowel sounds General: Yes no CVA tenderness Back/Spine/Pelvis Back: no CVA tenderness Skin General skin exam: no rashes or lesions noted Neuro General: patient oriented x3 and moves all extremities Extrem General: Yes no pedal edema Assessment & Plan Assessment & Plan (1) Hypertension: Code(s): I10 - Essential (primary) hypertension Category: Medical Qualifiers: Hypertension type: primary hypertension Qualified Code(s): I10 - Essential (primary) hypertension Plan Blood pressure needs to be kept at goal No H/O LVH/retinopathy/proteinuria No H/O renal dysfunction; No orthostasis Needs continued life style modification/weight loss On Spironolactone and Entresto; Going for ablation for AFib tomorrow Needs to maintain good hydration/minimal NSAID's No medication changes today; Has a cards F/U appointment Answered all questions; F/U given Coding Level of Care Code Est Pt Level 4 (09649) Diagnoses Primary hypertension I10 Hypertension type: primary hypertension
--- OUTSIDE RECORDS SUMMARY | 2025-03-02 13:36 | XMS_ITS | Clinical Summary ---
Author Organization [facility] Prior to 08/08/24 Address [address] [place] [address] Care Team Providers Care Gravity Meter Operator Name Role Phone Telma Foster Virgen [place] Primary Care Provider Allergies Active Allergy Reactions [...] 11 03/02/2016 Active ergocalciferol (VITAMIN D2) capsule 11079 units Take 50,000 Units by mouth. 0 Active pantoprazole (PROTONIX) 40 MG tablet 0 04/16/2016 Active montelukast (SINGULAIR) 10 MG tablet Take 10 mg by mouth. 0 Active Lidocaine-Hydrocorti sone Pedro 2-2 % KIT 0 03/07/2016 Active Ferrous Dicapyppv-C-Vhahl Acid (IRON-C PO) Take by mouth. 0 [...] 77 08/27/2018 5:10 PM EDT Temperature 36.7 C (98.1 F) 08/27/2018 5:10 PM EDT Respiratory Rate 16 08/27/2018 5:10 PM EDT [...] (1 of 2) 2018 Influenza Vaccine (#1) 2024 RSV Ped < 20 months Aged Out No longe r eligible based on patient's age to complete this topic Care Teams Gravity Meter Operator Relationship Specialty Start Date End Date Telma Foster APRN [address] [place] [address] PCP - General Unknown Physician Specialty 07/19/17
--- OUTSIDE RECORDS SUMMARY | 2025-03-02 13:36 | XMS_ITS | Encounter Summary ---
Author Organization [facility] Address [address] [place] [address] Care Team Providers Care Mercerizer Machine Operator Name Role Phone Kareen Caldwell MD Primary Care Provider Encounter Details Date Type Department Care Team ([facility] Contact Info) Description 02/28/2025 Results Follow-Up [facility] [address] [place] [address] Micki Beaulieu NP [address] [place] [address] [address] [place] [address] Social History Tobacco Use Types Packs/Day Years [...] care for your loved ones. For example, director of early childhood or elderly care for an older adult? [...] 2:00 PM EST Office Visit Adult Medicine - [place] [address] [place] [address] Mike Talbert PA [address] [place] [address] 03/31/2025 10:10 AM EST Office Visit [facility] - [address] [facility] [address] [place] [phone] Ally Brand PA [address] [place] [address] [place] [id number] documented as of this encounter Visit Diagnoses Not on filedocumented in this encounter Additional Health Concerns Assessment Noted Time PHQ-9 Depression Total Score: 6 06/16/19 25 12:18 PM EDT documented as of this encounter Care Teams Mercerizer Machine Operator Relationship Specialty Start Date End Date Kareen Caldwell MD [address] [place] [address] PCP - General Internal Medicine 03/24/24 documented as of this encounter
--- OUTSIDE RECORDS SUMMARY | 2025-03-02 13:37 | XMS_ITS | Encounter Summary ---
Author Organization [facility] Address [address] [place] [address] Care Team Providers Care Kit Assembler Name Role Phone Telma Foster APRN Primary Care Provider [phone] Pcp, No Primary Care Provider Clarisse Parker APRN Primary Care Provider [phone] Encounter Details Date Type Department Care Team (Late st Contact Info) Description 12/05/2018 Scanned Document [address] [place] [address] Provider, Generic Social History Tobacco [...] on filedocumented in this encounter Care Teams Kit Assembler Relationship Specialty Start Date End Date Telma Foster APRN [address] [place], [place] [address] PCP - General Family Medicine 08/14/17 12/21/18 Pcp, No PCP - General General Medicine 12/22/18 03/19/22 Clarisse Downey APRN [address] [place] [address] [place] [address] PCP - General 03/20/22 06/18/22 documented as of this encounter
--- OUTSIDE RECORDS SUMMARY | 2025-03-02 13:37 | XMS_ITS | Encounter Summary ---
Author Organization [facility] Address [address] [place] [address] Care Team Providers Care Lean Facilitator Name Role Phone Telma Foster APRN Primary Care Provider [phone] Pcp, No Primary Care Provider Clarisse Parker APRN Primary Care Provider [phone] Encounter Details Date Type Department Care Team (Late st Contact Info) Description 12/19/2017 Scanned Document [address] [place] [address] Provider, Generic Social History Tobacco [...] on filedocumented in this encounter Care Teams Lean Facilitator Relationship Specialty Start Date End Date Telma Foster APRN [address] [place], [place] [address] PCP - General Family Medicine 08/14/17 12/21/18 Pcp, No PCP - General General Medicine 12/22/18 03/19/22 Clarisse Downey APRN [address] [place] [address] [place] [address] PCP - General 03/20/22 06/18/22 documented as of this encounter
--- OUTSIDE RECORDS SUMMARY | 2025-03-02 13:37 | XMS_ITS | Encounter Summary ---
Author Organization [address] [address] Care Team Providers Care Wall To Wall Carpet Installer Name Role Phone Stephanie Mcmanus Primary Care Provider [phone] Homar Nixon MD Primary Care Provider [phone] Telma Foster APRN Primary Care Provider [phone] Pcp, No Primary Care Provider Clarisse Parker APRN Primary Care Provider + [phone] Encounter Details Date Type Department Care Team (Late st Contact Info) Description 04/06/2017 Scanned Document [address] [address] Provider, Generic Social History Tobacco [...] on filedocumented in this encounter Care Teams Wall To Wall Carpet Installer Relationship Specialty Start Date End Date Stephanie Mcmanus PA PCP - General Internal Medicine 04/03/16 06/23/17 Homar Nixon MD PCP - General Internal Medicine 06/24/17 08/13/17 Telma Foster APRN [address] [facility] [address] [place] [address] PCP - General Family Medicine 08/14/17 12/21/18 Pcp, No PCP - General General Medicine 12/22/18 03/19/22 Clarisse Downey APRN [address] [address] PCP - General 03/20/22 06/18/22 documented as of this encounter
--- OUTSIDE RECORDS SUMMARY | 2025-03-02 13:37 | XMS_ITS | Encounter Summary ---
Author Organization [facility] Address [address] [place] [address] Care Team Providers Care Egg Grader Name Role Phone Clarisse Downey APRN Primary Care Provider + [phone] Stephanie Mcmanus Primary Care Provider [phone] Homar Nixon MD Primary Care Provider [phone] Telma Foster APRN Primary Care Provider [phone] Pcp, No Primary Care Provider Clarisse Parker APRN Primary Care Provider + [phone] Clarisse Downey APRN Primary Care Provider + [phone] Encounter Details Date Type Department Care Team (Late st Contact Info) Description 02/10/2016 Scanned Document [address] [place] [phone] Provider, Generic Social History Tobacco Use Types [...] on filedocumented in this encounter Care Teams Egg Grader Relationship Specialty Start Date End Date Clarisse Downey APRN PCP - General 02/23/16 04/02/16 Stephanie Mcmanus PA PCP - General Internal Medicine 04/03/16 06/23/17 Homar Nixon MD PCP - General Internal Medicine 06/24/17 08/13/17 Telma Foster APRN [address] [facility] [address] [place] [address] PCP - General Family Medicine 08/14/17 12/21/18 Pcp, No PCP - General General Medicine 12/22/18 03/19/22 Clarisse Downey APRN [address] [address] PCP - General 02/22/16 Clarisse Downey APRN [address] [address] PCP - General 03/20/22 06/18/22 documented as of this encounter
--- OUTSIDE RECORDS SUMMARY | 2025-03-02 13:37 | XMS_ITS | Clinical Summary ---
Author Organization [facility] Address [address] [place] [address] [address] [place] [address] Care Team Providers Care Personnel Analyst Name Role Phone Unavailable Primary Care Provider [...] Vaccine: 50+ Years (2 of 2 - PPSV23, PCV20, or PCV21) 08/31/2014 07/06/2014 RSV Patients and Patients Aged 60 years or older (1 - Risk 50-74 years 1-dose series) 2018 Zoster Vaccines (1 of 2) 2018 Dental Prophylaxis 10/23/2022 04/24/2022 Dental Oral Exam 11/01/2023 05/02/2023, 03/16/2022 Dental X-Ray: Bitewings 03/06/2024 03/05/2023, 03/16 Tobacco Screening 05/02/2024 05/02/2023 COVID-19 Vaccine (5 - season) 2024 02/24/2022, 04/06/2021, 08/22/2020, Additional history exists Influenza Vaccine (#1) 2024 12/27/2020, 2019 Dental X-Ray: Full Mouth 03/06/2026 03/05/2023 DTaP/Tdap/Td Vaccines (3 - Td or Tdap) 02/16/2030 02/17/2020, 04/29/2007 HIB Vaccines Aged Out No longer eligi [...] Most Recently Relevant to Health Maintenance Insurance [facility] ST[facility] ADULT
--- OUTSIDE RECORDS SUMMARY | 2025-03-02 13:37 | XMS_ITS | Encounter Summary ---
Author Organization [facility] Address [address] [place] [address] Care Team Providers Care Learning Coach Name Role Phone Telma Foster APRN Primary Care Provider [phone] Pcp, No Primary Care Provider Clarisse Parker APRN Primary Care Provider [phone] Encounter Details Date Type Department Care Team (Late st Contact Info) Description 07/14/2018 Scanned Document [address] [place] [address] Provider, Generic Social History Tobacco [...] on filedocumented in this encounter Care Teams Learning Coach Relationship Specialty Start Date End Date Telma Foster APRN [address] [place], [place] [address] PCP - General Family Medicine 08/14/17 12/21/18 Pcp, No PCP - General General Medicine 12/22/18 03/19/22 Clarisse Downey APRN [address] [place] [address] [place] [address] PCP - General 03/20/22 06/18/22 documented as of this encounter
--- OUTSIDE RECORDS SUMMARY | 2025-03-02 13:37 | XMS_ITS | Encounter Summary ---
Author Organization [address] [address] Care Team Providers Care Seaming Inspector Name Role Phone Stephanie Mcmanus Primary Care Provider + [phone] Homar Nixon MD Primary Care Provider [phone] Telma Foster APRN Primary Care Provider [phone] Pcp, No Primary Care Provider Clarisse Parker APRN Primary Care Provider + [phone] Encounter Details Date Type Department Care Team (Late st Contact Info) Description 07/30/2016 Scanned Document [address] [phone] Provider, Generic Social History Tobacco [...] on filedocumented in this encounter Care Teams Seaming Inspector Relationship Specialty Start Date End Date Stephanie Mcmanus PA PCP - General Internal Medicine 04/03/16 06/23/17 Homar Nixon MD PCP - General Internal Medicine 06/24/17 08/13/17 Telma Foster APRN 100 [facility] 101 [place] [address] PCP - General Family Medicine 08/14/17 12/21/18 Pcp, No PCP - General General Medicine 12/22/18 03/19/22 Clarisse Downey APRN [address] [address] PCP - General 03/20/22 06/18/22 documented as of this encounter
--- OUTSIDE RECORDS SUMMARY | 2025-03-02 13:37 | XMS_ITS | Encounter Summary ---
Author Organization [facility] Address [address] [place] [address] Care Team Providers Care Global Head Advertiser Solutions Name Role Phone Homar Nixon MD Primary Care Provider [phone] Telma Foster APRN Primary Care Provider [phone] Pcp, No Primary Care Provider Clarisse Parker APRN Primary Care Provider + [phone] Encounter Details Date Type Department Care Team (Late st Contact Info) Description 07/04/2017 Scanned Document [address] [place] [address] Provider, Generic Social History Tobacco [...] on filedocumented in this encounter Care Teams Global Head Advertiser Solutions Relationship Specialty Start Date End Date Homar Nixon MD PCP - General Internal Medicine 06/24/17 08/13/17 Telma Foster APRN [address] [place] [address] PCP - General Family Medicine 08/14/17 12/21/18 Pcp, No PCP - General General Medicine 12/22/18 03/19/22 Clarisse Downey APRN [address] [place] [address] PCP - General 03/20/22 06/18/22 documented as of this encounter
--- OUTSIDE RECORDS SUMMARY | 2025-03-02 13:37 | XMS_ITS | Encounter Summary ---
Author Organization [address] [address] Care Team Providers Care Chief Executive Officer Name Role Phone Stephanie Mcmanus Primary Care Provider + [phone] Homar Nixon MD Primary Care Provider [phone] Telma Foster APRN Primary Care Provider [phone] Pcp, No Primary Care Provider Clarisse Parker APRN Primary Care Provider + [phone] Encounter Details Date Type Department Care Team (Late st Contact Info) Description 04/20/2016 Scanned Document [address] [phone] Provider, Generic Social History Tobacco [...] on filedocumented in this encounter Care Teams Chief Executive Officer Relationship Specialty Start Date End Date Stephanie Mcmanus PA PCP - General Internal Medicine 04/03/16 06/23/17 Homar Nixon MD PCP - General Internal Medicine 06/24/17 08/13/17 Telma Foster APRN [address] [place] [address] PCP - General Family Medicine 08/14/17 12/21/18 Pcp, No PCP - General General Medicine 12/22/18 03/19/22 Clarisse Downey APRN [address] [address] PCP - General 03/20/22 06/18/22 documented as of this encounter
--- OUTSIDE RECORDS SUMMARY | 2025-03-02 13:37 | XMS_ITS | Encounter Summary ---
Author Organization [facility] Address [address] [place] [address] Care Team Providers Care Bpm Solution Architect Name Role Phone Telam Foster APRN Primary Care Provider [phone] Pcp, No Primary Care Provider Clarisse Parker APRN Primary Care Provider [phone] Encounter Details Date Type Department Care Team (Late st Contact Info) Description 08/27/2018 Scanned Document [address] [place] [address] Provider, Generic Social History Tobacco [...] on filedocumented in this encounter Care Teams Bpm Solution Architect Relationship Specialty Start Date End Date Telma Foster APRN [address] [place], [place] [address] PCP - General Family Medicine 08/14/17 12/21/18 Pcp, No PCP - General General Medicine 12/22/18 03/19/22 Clarisse Downey APRN [address] [place] [address] [place] [address] PCP - General 03/20/22 06/18/22 documented as of this encounter
--- OUTSIDE RECORDS SUMMARY | 2025-03-02 13:37 | XMS_ITS ---
Author Name [facility] Organization Unknown Care Team Organization Name Specialty Phone Email Start Date End Da te [facility] Feliz Lynch Primary Care 11/15/2022 10/28/2023 [facility] Kareen Caldwell MD Primary Care 01/16/2022 10/28/2023
--- OUTSIDE RECORDS SUMMARY | 2025-03-02 13:37 | XMS_ITS | Encounter Summary ---
Author Organization [facility] Address [address] [place] [address] [address] [place] [address] Care Team Providers Care Distance Learning Technician Name Role Phone Unavailable Primary Care Provider [...]
--- OUTSIDE RECORDS SUMMARY | 2025-03-02 13:37 | XMS_ITS | Encounter Summary ---
Author Organization [facility] Address [address] [place] [address] Care Team Providers Care Stock Dealer Name Role Phone Kareen Caldwell MD Primary Care Provider Reason for Visit * Reason Onset Date Comments Forms/questionnaires 02/23/2025 Emergency A id Encounter Details Date Type Department [facility] Description 02/23/2025 Telephone Adult Medicine - [place] [address] [place] [phone] Kareen Caldwell MD [address] [place] [address] Social History Tobacco Use Types Packs/Day Years [...] do you feel lonely or isolated from ose around you? Never 06/15/2024 Food Risk [...] care for your loved ones. For example, early childhood education worker or elderly care for an older adult? [...] on file documented as of this encounter Progress Notes * Nancy Monaco - 02/23/2025 3:16 PM EST FORMS TO BE COMPLETED IN THE PRACTICE: Type of form: Emergency Aid to the Elderly, Disabled Release of information form ( all sections) has been completed and signed. Yes If this form is for the Registry of Motor Vechicles for a handicap placard or plate is the patient go to be: N/A - not a registry form Is the patient still driving? Yes For what medical problem does the patient need this form completed? Unknown to BSR Is patients name on the form? Yes Is the patients portion (demographics) of the form completed? Yes Did the patient sign the form? Yes Which provider is form to be completed by? Duncan or Dr. Cunningham Patient requesting the form be: Fax to other office/MD/pharmacy at fax # [phone] AND copy for pt at seed cone picker If form is not to be picked up by patient has patient been informed that RELEASE OF INFO form must be signed by them for alternate person to seed cone picker form? No Patient has been informed that completion will be in 7-10 business days: Yes documented in this encounter Plan of Treatment Upcoming Encounters Date Type Department Care Team (Late st Contact Info) Description 03/24/2025 2:00 PM EST Office Visit Adult Medicine - [place] [address] [place] [address] Mike Talbert PA [address] [place] [address] 03/31/2025 10:10 AM EST Office Visit [facility] [address] [facility] 154 [place] [phone] Ally Brand PA [address] [place] [address] [place] [address] documented as of this encounter Visit Diagnoses Not on filedocumented in this encounter Additional Health Concerns Assessment Noted Time PHQ-9 Depression Total Score: 6 06/16/19 25 12:18 PM EDT documented as of this encounter Care Teams Stock Dealer Relationship Specialty Start Date End Date Kareen Caldwell MD [address] [place] [address] PCP - General Internal Medicine 03/24/24 documented as of this encounter
--- OUTSIDE RECORDS SUMMARY | 2025-03-02 13:37 | XMS_ITS | Encounter Summary ---
Author Organization [address] [address] Care Team Providers Care Emissions Engineer Name Role Phone Stephanie Mcmanus Primary Care Provider + [phone] Homar Nixon MD Primary Care Provider [phone] Telma Foster APRN Primary Care Provider [phone] Pcp, No Primary Care Provider Clarisse Parker APRN Primary Care Provider + [phone] Encounter Details Date Type Department Care Team (Late st Contact Info) Description 11/19/2016 Scanned Document [address] [phone] Provider, Generic Social History Tobacco [...] on filedocumented in this encounter Care Teams Emissions Engineer Relationship Specialty Start Date End Date Stephanie Mcmanus PA PCP - General Internal Medicine 04/03/16 06/23/17 Homar Nixon MD PCP - General Internal Medicine 06/24/17 08/13/17 Telma Foster APRN 100 [facility] 101 [place] [address] PCP - General Family Medicine 08/14/17 12/21/18 Pcp, No PCP - General General Medicine 12/22/18 03/19/22 Clarisse Downey APRN [address] [address] PCP - General 03/20/22 06/18/22 documented as of this encounter
--- OUTSIDE RECORDS SUMMARY | 2025-03-02 13:37 | XMS_ITS | Encounter Summary ---
Author Organization [address] [address] Care Team Providers Care Healthcare Applications Analyst Name Role Phone Stephanie Mcmanus Primary Care Provider + [phone] Homar Nixon MD Primary Care Provider [phone] Telma Foster APRN Primary Care Provider [phone] Pcp, No Primary Care Provider Clarisse Parker APRN Primary Care Provider + [phone] Encounter Details Date Type Department Care Team (Late st Contact Info) Description 03/28/2017 Scanned Document [address] [address] Provider, Generic Social History Tobacco [...] on filedocumented in this encounter Care Teams Healthcare Applications Analyst Relationship Specialty Start Date End Date Stephanie Mcmanus PA PCP - General Internal Medicine 04/03/16 06/23/17 Homar Nixon MD PCP - General Internal Medicine 06/24/17 08/13/17 Telma Foster APRN 100 [facility] 101 [place] [address] PCP - General Family Medicine 08/14/17 12/21/18 Pcp, No PCP - General General Medicine 12/22/18 03/19/22 Clarisse Downey APRN [address] [address] PCP - General 03/20/22 06/18/22 documented as of this encounter
--- OUTSIDE RECORDS SUMMARY | 2025-03-02 13:37 | XMS_ITS | Encounter Summary ---
Author Organization [employer] [facility] Address [address] [place] [address] Care Team Providers Care Suspender Cutter Name Role Phone Unavailable Primary Care Provider Unavailabl e Encounter Details Date Type Department Care Team (Latest Contact Info) Description 10/17/2021 Abstract [facility] CONVERSIONS Dental, Provider, DDS Social History [...]
--- OUTSIDE RECORDS SUMMARY | 2025-03-02 13:37 | XMS_ITS | Encounter Summary ---
Author Organization [facility] Address [address] [place] [address] Care Team Providers Care Spoke Maker Name Role Phone Clarisse Downey APRN Primary Care Provider + [phone] Stephanie Mcmanus Primary Care Provider [phone] Homar Nixon MD Primary Care Provider [phone] Telma Foster APRN Primary Care Provider [phone] Pcp, No Primary Care Provider Clarisse Parker APRN Primary Care Provider + [phone] Clarisse Downey APRN Primary Care Provider + [phone] Encounter Details Date Type Department Care Team (Late st Contact Info) Description 03/31/2015 Scanned Document [address] [place] [phone] Provider, Generic Social History Tobacco Use Types [...] on filedocumented in this encounter Care Teams Spoke Maker Relationship Specialty Start Date End Date Clarisse Downey APRN PCP - General 02/23/16 04/02/16 Stephanie Mcmanus PA PCP - General Internal Medicine 04/03/16 06/23/17 Homar Nixon MD PCP - General Internal Medicine 06/24/17 08/13/17 Telma Foster APRN [address] [place] [address] PCP - General Family Medicine 08/14/17 12/21/18 Pcp, No PCP - General General Medicine 12/22/18 03/19/22 Clarisse Downey APRN [address] [address] PCP - General 02/22/16 Clarisse Downey APRN [address] [address] PCP - General 03/20/22 06/18/22 documented as of this encounter
--- OUTSIDE RECORDS SUMMARY | 2025-03-02 13:37 | XMS_ITS | Clinical Summary ---
Author Organization [facility] [address] [facility] Address [address] [place] [address] Phone Care Team Providers Care Hacksaw Inspector Name Role Phone Kareen Caldwell MD Primary [...] Take 1 Tablet by mouth at bedtime. 12/19/19 24 Active cetirizine (ZyrTEC) 10 mg tablet Take 1 tablet (10 mg total) by mouth 1 (one) time each day. 12/19/19 24 Active EPINEPHrine (EpiPen 2-Bob) 0.3 mg/0.3 mL injection INJECT DIRECTED NEEDED FOR ANAPHYLAXIS 12/28/19 20 Active buPROPion (WELLBUTRIN) 75 mg tablet TAKE 1 TABLET BY MOUTH TWICE A DAY 2ND DOSE NO LATER THAN 2PM 05/08/19 25 Active pantoprazole (PROTONIX) 40 mg EC tabletIndication s:Eosinophilic esophagitis due to food,GERD (gastroesophagea l reflux disease) Take 1 tablet (40 mg total) by mouth 1 (one) time each day. 90 tablet 3 06/12/19 25 Active sacubitriL-valsa rtan (ENTRESTO) 24-26 mg per tablet Take 1 tablet by mouth 2 (two) times a day. 60 each 11 07/11/19 25 2025 Active carvediloL (COREG) 3.125 mg tablet Take 1 tablet (3.125 mg total) by mouth 2 (two) times a day with meals. 60 each 07/11/19 25 2025 Active blood sugar diagnostic (FreeStyle Lite Strips) test stripIndications :Type 2 diabetes mellitus without complications ([facility] V24, [facility] V28) Use to test blood sugar daily in the morning 100 strip 2 11/25/19 25 Active lidocaine (LIDODERM) 5 % patch Apply 1 patch topically 1 (one) time each day. Remove & discard patch within 12 hours or as directed by MD. Active empagliflozin (JARDIANCE) 10 mg tabletIndication s:HFrEF (heart failure with reduced ejection fraction) ([facility] V24, [facility] V28) Take 1 tablet (10 mg total) by mouth 1 (one) time each day. 90 tablet 2 12/02/19 25 Active Eliquis 5 mg tabletIndication s:Atrial fibrillation, unspecified type ([facility] V24, [facility] V28) TAKE 1 TABLET BY MOUTH TWICE A DAY 180 tablet 3 12/26/19 25 Active clotrimazole (LOTRIMIN) 1 % cream APPLY 2 TIMES DAILY ON AFFECTED AREA UNTIL RASH CLEARS 30 g 02/10/20 25 Active Mounjaro 2.5 mg/0.5 mL injectionIndicat ions:Type 2 diabetes mellitus without complication, without long-term current use of insulin ([facility] V24, [facility] V28),Morbid obesity with BMI of 45.0-49.9, adult ([facility] V24, [facility] V28) INJECT 0.5 ML (2.5 MG TOTAL) UNDER THE SKIN EVERY 7 DAYS 2 mL 02/24/20 Active tirzepatide (Mounjaro) 2.5 mg/0.5 mL injectionIndicat ions:Type 2 diabetes mellitus without complication, without long-term current use of insulin ([facility] V24, [facility] V28),Morbid obesity with BMI of 45.0-49.9, adult ([facility] V24, [facility] V28) Inject 0.5 mL (2.5 mg total) under the skin every 7 (seven) days. 6 mL 11/17/19 25 2024 Discontinued clotrimazole (LOTRIMIN) 1 % cream APPLY 2 TIMES DAILY ON AFFECTED AREA UNTIL RASH CLEARS 30 g 01/13/20 25 2024 Discontinued Active Problems Problem Noted Date Diagnosed Date HFrEF (heart failure with reduced ejection fract ion) 07/10/2024 Assessment & Plan (01/04/2025 11:46 AM EDT): Last echocardiogram: June 2024 with EF 30-35%. Last ischemic evaluation: Left heart cath August 2024. GDMT Betablocker: Carvedilol 3.125 mg BID ELIANA Inhibitor-MAMADOU/ARB/ARNI: Entresto 24-26 mg BID Aldosterone antagonist: Did not tolerate spironolactone. SGLT2 inhibitors: Jardiance 10 mg initiated today ICD: Will continue to monitor EF after initiation of GDMT Patient with newly diagnosed HFrEF. She had an ischemic evaluation in August 2024 with a coronary angiogram showing normal coronaries. Will further evaluate her cardiomyopathy with a cardiac MRI to rule out the evidence of infiltrative processes- results pending. Jardiance was added in November and the patient is tolerating this medication well. Her potassium was low after starting this medication so her spironolactone was reintroduced. Her potassium has since normalized yet, she was not feeling well on the spironolactone and has discontinued it. Will recheck BMP today. I've asked the patient to call if they develop worsening symptoms of heart failure such as increased shortness of breath, new or worsening cough, increased swelling in the legs or ankles, or weight gain of more than 2 pounds in one day or 4 pounds in one week. Assessment & Plan (12/01/2024 12:16 PM EDT): Last echocardiogram: June 2024 with EF 30-35%. Last ischemic evaluation: Left heart cath August 2024. GDMT Betablocker: Carvedilol 3.125 mg BID ELIANA Inhibitor-MAMADOU/ARB/ARNI: Entresto 24-26 mg BID Aldosterone antagonist: Not currently taking SGLT2 inhibitors: Jardiance 10 mg initiated today ICD: Will continue to monitor EF after initiation of GDMT Patient with newly diagnosed HFrEF. She had an ischemic evaluation in August 2024 with a coronary angiogram showing normal coronaries. Will further evaluate her cardiomyopathy with a cardiac MRI to rule out the evidence of infiltrative processes. Jardiance was added today to her GDMT regimen, will assess a BMP in 1 week. As noted above, she previously was on spironolactone yet this was discontinued. The patient is unsure if this was discontinued due to side effects or if this was the medication her pharmacist advise she discontinue. I do not see notes on this. Will first initiate the Jardiance and at her follow-up consider reinitiating spironolactone. Orders: empagliflozin (JARDIANCE) 10 mg tablet; Take 1 tablet (10 mg total) by mouth 1 (one) time each day. Basic metabolic panel; Future Basic metabolic panel; Future MR Cardiac Morphology and Function wo and w Contrast; Future Low left ventricular ejection fraction Dyspnea on exertion 07/06/2024 Morbid obesity with BMI of 45.0-49.9, adult 02/08 Stage 3a chronic kidney disease 06/26/2021 Type 2 diabetes, diet controlled 06/26/2021 Overview (02/20/2024): 05/03 - HgbA1C 7% Hyperlipidemia 11/01/2020 SVT (supraventricular tachycardia) 11/01/2020 Overview (02/20/2024): Only 1 episode due [...] 09/21/2019 Obstructive sleep apnea 05/04/2019 Overview (02/20/2024): [facility] Polysomnogram: Date 04/28/2019; Wt [...] day. Vitamin D deficiency 01/26/2019 Hyperlipidemia associated with type 2 diabetes m ellitus 12/15/2018 Seasonal allergies 11/28/2018 Arthritis of both knees 11/26/2018 Overview (02/20/2024): Last Assessment & Plan: Reviewed splunk consultant note, she is getting knee injections-her pain improved. Essential hypertension 11/26/2018 Assessment & Plan (01/04/2025 11:46 AM EDT): Blood pressure is well-controlled, continue on current medical therapies. I have reviewed with the patient the importance of a heart healthy lifestyle which includes eating a low-fat low-salt diet, getting regular exercise, maintaining a healthy weight, not smoking, and following up with routine medical care. Assessment & Plan (12/01/2024 12:16 PM EDT): Blood pressure is well-controlled today, continue on current medical therapies. (sickle cell trait) 10/26/2014 Asthma 10/26/2014 Encounters Date Type Department Care Team Description 02/28/2025 Results Follow-Up [facility] Cardiology [facility] [address] [facility] [address] [place] [phone] Micki Beaulieu NP 02/26/2025 4:45 PM EST Lab Draw Station - [place] [address] [place] [address] Hypokalemia; Longstanding persistent atrial fibrillation (CMS/HCC V24, CMS/HCC V28) 02/23/2025 Telephone Adult Medicine - [place] [address] [place] [address] Kareen Caldwell MD 01/28/2025 Telephone Adult Medicine - [place] [address] [place] [address] Mike Talbert PA 01/05/2025 Results Follow-Up [facility] Cardiology [facility] [address] [place] [phone] Micki Beaulieu NP 01/04/2025 11:10 AM EDT Office Visit [facility] Cardiology [facility] [address] [phone] Micki Beaulieu NP HFrEF (heart failure with reduced ejection fraction) (CMS/HCC V24, CMS/HCC V28) (Primary Dx); Atrial fibrillation, unspecified type (CMS/HCC V24, CMS/HCC V28); Essential hypertension; Hypokalemia 12/31/2024 Telephone [facility] [address] [facility] [address] [place] [phone] Micki Beaulieu, BRENDA 12/28/2024 Telephone [facility] [address] [place] [address] Kelly Kaye MD 12/23/2024 3:15 PM EDT Consult [facility] - [address] [place] [address] Kelly Kaye MD New onset a-fib (CMS/HCC V24, CMS/HCC V28) (Primary Dx); Longstanding persistent atrial fibrillation (CMS/HCC V24, CMS/HCC V28); Dilated cardiomyopathy (CMS/HCC V24, CMS/HCC V28) 12/18/2024 Results Follow-Up [facility] [address] [facility] [address] [place] [phone] Micki Beaulieu NP 12/18/2024 Telephone [facility] [address] [facility] [address] [place] [phone] Micki Beaulieu NP 12/15/2024 Results Follow-Up Adult Medicine - [place] [address] [place] [phone] Mike Talbert PA 12/14/2024 Results Follow-Up [facility] [address] [facility] [address] [place] [phone] Micki Beaulieu, BRENDA 12/14/2024 Telephone Adult Medicine - [place] [address] [place] [address] Kareen Caldwell MD 12/03/2024 Telephone [facility] [address] [facility] [address] [place] [address] iMcki Beaulieu NP 12/03/2024 Telephone [facility] [address] [place] [address] Destiny Webber MD 12/01/2024 8:10 AM EDT Office Visit [facility] [address] [place] [address] Micki Beaulieu NP HFrEF (heart failure with reduced ejection fraction) (CMS/HCC V24, CMS/HCC V28) (Primary Dx); Atrial fibrillation, unspecified type (CMS/HCC V24, CMS/HCC V28); Essential hypertension 12/01/2024 Telephone [facility] [address] [place] [address] Micki Beaulieu NP from Last 3 Months Immunizations Immunization Administration Dates Next Due Influenza Quadravalent, MDCK [...] Right PROCEDURE: HISTORICAL ANKLE SURGERY SALPINGOOPHORECTOMY PROCEDURE: ND LAPAROSCOPY W/RMVL ADNEXAL STRUCTURES; COMMENT: Unilateral UPPER GASTROINTESTINAL ENDOSCOPY 07/26/2022 35 eos/hpf OTHER SURGICAL HISTORY 2020 PROCEDURE: ND PRTL THYROID LOBECTOMY UNI W/WO ISTHMUSECTOMY COLONOSCOPY 07/26/2022 nl- tics, hemorrhoids VIRTUAL COLONSCOPY (DIAG.) 12/22/2014 tics, hemorrhoids, HP x 1, nl colonc bx ESOPHAGOGASTRODUODENOSCOPY 12/22/2014 mild chronic duodenitis. no H. pylori, 10 eos/hpf ESOPHAGOGASTRODUODENOSCOPY 03/21/2016 all nl esophagus bx x 3 CARDIAC CATHETERIZATION DONE ON 08/20/2024 IN [facility] Medical History Medical History Date Comments Essential hypertension DX:Essent ial hypertension DM (diabetes mellitus), type 2 with renal complications ([facility] V24, [facility] V28) 12/15/2018 DX:DM (diabetes mellitus), t ype 2 with renal complications (HCC) (sickle cell trait) ([facility] V24) 01/26/2019 DX: (sickle cell trait) ([facility]) Eosinophilic esophagitis 01/26/2019 DX:Eosi nophilic esophagitis GERD (gastroesophageal reflux disease) 9 DX:GERD (gastroesophageal reflux disease) Nephrolithiasis 01/26/2019 DX:Nephrolithias is Asthma 01/26/2019 DX:Asthma Morbid obesity with BMI of 4 5.0-49.9, adult ([facility] V24, [facility] V28) 01/26/2019 DX:Morbid obesity wit h BMI of 45.0-49.9, adult ([facility]) Vitamin D deficiency 01/26/2019 DX:Vitamin D deficiency Diverticulosis 01/26/2019 DX:Diverticulosi s History of torn meniscus of right knee 11/26/2018 DX:History of torn meniscus of right knee Hyperlipidemia associated wi th type 2 diabetes mellitus ([facility] V24, [facility] V28) 12/15/2018 DX:Hyperlipidemia associated with type 2 diabetes mellitus ([facility]) Seasonal allergies 11/28/2018 DX:Seasonal a llergies CKD (chronic kidney disease) stage 3, GFR 30-59 ml/min ([facility] V24, [facility] V28) 12/15/2018 DX:CKD (chronic kidney disea se) stage 3, GFR 30-59 ml/min ([facility]) Arthritis of both knees 11/26/2018 DX:Arthr itis of both knees Multiple food allergies 12/17/2018 DX:Multi ple food allergies; COMMENT: Seafood, Tree Nuts, Rice Snoring 01/06/2019 DX:Snoring; COMM ENT: 12/2018 Home Sleep Study did not reveal sleep apnea or nocturnal hypoxia. DM (diabetes mellitus), type 2 with renal complications ([facility] V24, [facility] V28) 12/15/2018 DX:DM (diabetes mellitus), t ype 2 with renal complications (HCC) Nephrolithiasis 01/26/2019 DX:Nephrolithias is Atrial fibrillation ([facility] V24, [facility] V28) Family History Medical History Relation Name Comments Alcohol abuse Father seafood allerg y Breast cancer Mother Colon cancer Neg Hx Relation Name Status Comments Father Mother Social History Tobacco Use Types Packs/Day Years Used Date Smoking Tobacco: Former Cigarettes 0 Q uit: 03/11/2021 Smokeless Tobacco: Never Tobacco [...] care for your loved ones. For example, assistant child care teacher or elderly care for an older adult? [...] Sign Reading Time Taken Comments Blood Pressure 122/84 01/04/2025 11:13 AM EDT Pulse 86 01/04/2025 11:13 AM EDT Temperature 36.3 C (97.3 F) 11/16/2024 8:28 AM EDT Respiratory Rate 17 08/20/2024 2:00 PM EDT Oxygen Saturation 98% 01/04/2025 11:13 AM EDT Inhaled Oxygen Concentration - - Weight 118 kg (260 lb) 01/04/2025 11:13 AM EDT Height 160 cm (5' 3 ) 12/23/2024 3:27 PM EDT Body Mass Index 46.06 12/23/2024 3:27 PM EDT Plan of Treatment Upcoming Encounters Date Type Department Care Team (Late st Contact Info) Description 03/24/2025 2:00 PM EST Office Visit Adult Medicine - [place] [address] [place] [address] Mike Talbert PA [address] [place] [address] 03/31/2025 10:10 AM EST Office Visit [facility] - [facility] [address] [facility] [address] [place] [phone] Ally Brand PA [address] [place] [address] [place] [phone] Health Maintenance Due Date Last Done Comments Hepatitis B Vaccines (1 of 3 - 19+ 3-dose series) 12/11/1987 Zoster Vaccines (1 of 2) 12/11/1987 Pneumococcal Vaccine: 50+ Years (2 of 2 - PPSV23, PCV20, or PCV21) 08/31/2014 07/06/2014 RSV Immunization Adult Patients (1 - Risk 50-74 years 1-dose series) 2018 Cervical Cancer Screening: Pap Smear 10/15/2021 10/15/2018, 10/15/2018 HIV Screening 02/17/2022 Diabetes: Annual Foot Exam 04/04/2024 04/04/2023 Diabetes: Annual Retina Eye Exam 09/09/2024 09/10/2023 COVID-19 Vaccine ( season) 2024 02/24/2022, 04/06/2021, 08/22/2020, Additional history exists Influenza Vaccine (#1) 2024 12/27/2020, 2019 Diabetes: Blood Sugar Control Test (HGBA1C) 05/16/2025 11/16/2024, 07/03/2024, 12/19/2023, Additional history exists Breast Cancer Screening 05/28/2025 05/29/19 24, 07/25/2020, 07/07/2020, Additional history exists Social Influencers of Health Screening 06/15/2025 06/15/2024 Diabetes: Annual Urine Albumin-Creatinine Ratio (uACR) 12/14/2025 12/14/2024, 07/03/2024, 03/13/2023 Diabetes: Annual GFR (Glomerular Filtration Rate) 02/26/2026 02/26/2025, 01/04/2025, 12/18/2024, Additional history exists Hypertension/CHF/CAD Annual BMP Blood Test 02/26/2026 02/26/2025, 01/04/2025, 12/18/2024, Additional history exists Cholesterol Screening (Lipid Panel) 11/16/2029 11/16/2024, 07/03/2024, 08/15/2023, Additional history exists DTaP,Tdap,and Td Vaccines (3 - Td or Tdap) 02/16/2030 02/17/2020, 04/29/2007 Colorectal Cancer Screening: Colonoscopy 07/26/2032 07/26/2022 Hepatitis C Screening Completed 01/10/2021 Depression Screening Completed 06/15/2024, 02/21/20 23 HIB Vaccines Aged Out No longer eligi [...] PANEL Routine 02/26/2025 4:47 PM EST Hypokalemia BASIC METABOLIC PANEL Routine 01/04/2025 1:09 PM EDT Hypokalemia ECG 12-LEAD Routine 12/23/2024 3:35 PM EDT New onset a-fib (CMS/HCC V24, CMS/HCC V28) BASIC METABOLIC PANEL Routine 12/18/2024 4:49 PM EDT Hypokalemia POTASSIUM STAT 12/18/2024 4:48 PM EDT Hypokalemia MICROALBUMIN CREATININE URINE RATIO Routine 12/14/2024 12:25 PM EDT Morbid obesity with BMI of 45.0-49.9, adult ([facility] V24, [facility] V28) Gastroesophageal reflux disease, unspecified whether esophagitis present Essential hypertension Hyperlipidemia, unspecified hyperlipidemia type Type 2 diabetes mellitus with other diabetic kidney complication, without long-term current use of insulin ([facility] V24, [facility] V28) BASIC METABOLIC PANEL Routine 12/14/2024 12:25 PM EDT HFrEF (heart failure with reduced ejection fraction) ([facility] V24, [facility] V28) HEMOGLOBIN A1C Routine 11/16/2024 9:09 AM EDT Morbid obesity with BMI of 45.0-49.9, adult ([facility] V24, [facility] V28) Gastroesophageal reflux disease, unspecified whether esophagitis present Essential hypertension Hyperlipidemia, unspecified hyperlipidemia type Type 2 diabetes mellitus with other diabetic kidney complication, without long-term current use of insulin ([facility] V24, [facility] V28) LIPID PANEL WITH REFLEX TO DIRECT LDL Routine 11/16/2024 9:09 AM EDT Morbid obesity with BMI of 45.0-49.9, adult ([facility] V24, [facility] V28) Gastroesophageal reflux disease, unspecified whether esophagitis present Essential hypertension Hyperlipidemia, unspecified hyperlipidemia type Type 2 diabetes mellitus with other diabetic kidney complication, without long-term current use of insulin ([facility] V24, [facility] V28) DIABETES EYE EXAM Routine 09/10/2023 SCREENING MAMMOGRAPHY BI 2-VIEW BREAST INC CAD Routine 05/29/2023 1:52 PM EDT Encounter for other screening for malignant neoplasm of breast DIABETES FOOT EXAM Routine 04/04/2023 DEPRESSION SCREENING Routine 02/20/2023 COLONOSCOPY Routine 07/26/2022 HEPATITIS C SCREENING Routine 01/10/2021 PAP SMEAR Routine 10/15/2018 from Last 3 Months or Most Recently Relevant to Health Maintenance Results * (ABNORMAL) Prothrombin time with INR (02/26/2025 4:47 PM EST) Pathologist [facility] Protime 15.7(H) 10.6 - 13.9 sec LAB COAGULATION METHOD 02/26/2025 5:46 PM EST [facility] INR 1.3 LAB COAGULATION METHOD 02/26/2025 5:46 PM EST [facility] Blood Venous blood specimen / Unknown Venipuncture / Unknown 02/26/2025 4:47 PM EST 02/26/2025 4:47 PM EST Kelly Kaye MD LAB BLOOD ORDERABLES Final Result [facility] [address] [place] [address], [place] [phone] * (ABNORMAL) Complete blood count (02/26/2025 4:47 PM EST) [facility] WBC 8.9 4.8 - 10.8 K/mcL LAB HEMETOLOGY METHOD 02/26/2025 5:37 PM [facility] RBC 5.30(H) 3.80 - 4.80 M/mcL LAB HEMETOLOGY METHOD 02/26/2025 5:37 PM EST [facility] Hemoglobin 13.7 11.5 - 16.0 g/dL LAB HEMETOLOGY METHOD 02/26/2025 5:37 PM [facility] Hematocrit 41.9 35.0 - 47.0 % LAB HEMETOLOGY METHOD 02/26/2025 5:37 PM [facility] MCV 78.9(L) 79.0 - 98.0 FL LAB HEMETOLOGY METHOD 02/26/2025 5:37 PM EST [facility] MCH 25.8(L) 27.0 - 32.0 pcg LAB HEMETOLOGY METHOD 02/26/2025 5:37 PM EST [facility] MCHC 32.7 32.0 - 37.0 g/dL LAB HEMETOLOGY METHOD 02/26/2025 5:37 PM EST [facility] RDW 13.4 11.0 - 15.0 % LAB HEMETOLOGY METHOD 02/26/2025 5:37 PM EST [facility] Platelets 310 130 - 400 K/mcL LAB HEMETOLOGY METHOD 02/26/2025 5:37 PM EST [facility] MPV 11.1(H) 7.0 - 11.0 FL LAB HEMETOLOGY METHOD 02/26/2025 5:37 PM EST [facility] NRBC 0.0 <1.0 % LAB HEMETOLOGY METHOD 02/26/2025 5:37 PM EST [facility] NRBC Absolute 0.00 <0.10 K/mcL LAB HEMETOLOGY METHOD 02/26/2025 5:37 PM EST [facility] Blood Venous blood specimen / Unknown Venipuncture / Unknown 02/26/2025 4:47 PM EST 02/26/2025 4:47 PM EST Kelly Kaye MD LAB BLOOD ORDERABLES Final Result [facility] [address] [place] [address], * (ABNORMAL) Basic metabolic panel (02/26/2025 4:47 PM EST) Only the most recent of4 resultswithin the time period is included. Sodium 140 133 - 145 mmol/L 02/26/2025 5:59 PM EST [facility] Potassium 3.7 3.5 - 5.5 mmol/L 02/26/2025 5:59 PM [facility] Chloride 102 96 - 110 mmol/L 02/26/2025 5:59 PM [facility] CO2 30 21 - 32 mmol/L 02/26/2025 5:59 PM [facility] Anion Gap 8 3 - 11 02/26/2025 5:59 PM [facility] Glucose 110(H) 70 - 100 mg/dL 02/26/2025 5:59 PM [facility] BUN 12 5 - 25 mg/dL 02/26/2025 5:59 PM [facility] Creatinine 1.08 0.50 - 1.10 mg/dL 02/26/2025 5:59 PM [facility] eGFR 60 >=60 mL/min/1. 73m2 02/26/2025 5:59 PM [facility] Comment:Calculation based on the Chronic Kidney Disease Epidemiology Collaboration (CKD-EPI) equation refit without adjustment for race. BUN/Creatinine Ratio 11.1 02/26/2025 5:59 PM [facility] Calcium 9.8 8.5 - 10.5 mg/dL 02/26/2025 5:59 PM [facility] Blood Venous blood specimen / Unknown Venipuncture / Unknown 02/26/2025 4:47 PM EST 02/26/2025 4:47 PM EST us Micki Beaulieu TREE INSPECTOR LAB BLOOD ORDERABLES Final Res ult [facility] [address] [place] [address], * ECG 12 lead (12/23/2024 3:35 PM EDT) Ventricular Rate ECG 91 BPM GEMUSE Atrial Rate 375 BPM GEMUSE QRS Duration 70 ms GEMUSE Q-T Interval 360 ms GEMUSE QTc 442 ms GEMUSE T [place] 118 degrees GEMUSE ECG Interpretation Atrial fibrillation Low voltage QRS Cannot rule out Anterior infarct , age undetermined When compared with ECG of 20-AUG-2024 10:03, Nonspecific T wave abnormality, improved in Lateral leads Confirmed by JENNIE KAYE ([id number]) on 12/24/2024 9:52:54 PM GEMUSE 12/23/2024 3:35 PM EDT 12/24/2024 9:52 PM EDT us Kelly Kaye MD ECG ORDERABLES Final Resu lt GEMUSE * Potassium (12/18/2024 4:48 PM EDT) Potassium 3.5 3.5 - 5.5 mmol/L LAB CHEMISTRY METHOD 12/18/2024 6:12 PM EDT [facility] Blood Venous blood specimen / Unknown Venipuncture / Unknown 12/18/2024 4:48 PM EDT 12/18/2024 4:48 PM EDT Micki Beaulieu NP LAB BLOOD ORDERABLES Final Res ult Performing Organization Address City/[facility]/ZIP Co de Phone Number [facility] [address] [place] [address], [place] [phone] * (ABNORMAL) Microalbumin creatinine urine ratio (12/14/2024 12:25 PM EDT) Creatinine, Urine 252.0 mg/dL LAB CHEMISTRY METHOD 12/14/2024 4:19 PM EDT [facility] Microalb, Ur 89.3(H) 0.0 - 29.0 mg/L LAB CHEMISTRY METHOD 12/14/2024 4:19 PM EDT [facility] Microalb/Crea t Ratio 35(H) <30 mg/g creat LAB CHEMISTRY METHOD 12/14/2024 4:19 PM EDT [facility] Urine Urine specimen obtained by clean catch procedure / Unknown Non-blood Collection / Unknown 12/14/2024 12:25 PM EDT 12/14/2024 12:25 PM EDT us Mike ORTIZ LAB URINE ORDERABLES Final Re sult [facility] [address] [place] [address], [place] [phone] * Lipid panel with reflex to direct LDL (11/16/2024 9:09 AM EDT) Cholesterol 158 0 - 200 mg/dL LAB CHEMISTRY METHOD 11/16/2024 12:28 PM EDT [facility] Triglycerides 110 0 - 150 mg/dL LAB CHEMISTRY METHOD 11/16/2024 12:28 PM [facility] HDL 47 >=40 mg/dL LAB CHEMISTRY METHOD 11/16/2024 12:28 PM [facility] LDL Calculated 89 0 - 100 mg/dL LAB CHEMISTRY METHOD 11/16/2024 12:28 PM T [facility] Comment:Estimated LDL Calcul ated using equation: Total cholesterol - HDL cholesterol - (Triglycerides/5) VLDL Cholesterol Carlos 22 mg/dL LAB CHEMISTRY METHOD 11/16/2024 12:28 PM EDT [facility] Non HDL Chol. (LDL+VLDL) 111 <145 mg/dL LAB CHEMISTRY [facility] Chol/HDL Ratio 3.4 0.0 - 4.4 LAB CHEMISTRY METHOD 11/16/2024 12:28 PM [facility] Blood Venous blood specimen / Unknown Venipuncture / Unknown 11/16/2024 9:09 AM EDT 11/16/2024 9:09 AM EDT Mike ORTIZ LAB BLOOD ORDERABLES Final Re sult Performing Organization Address City/[facility]/ZIP Co de Phone Number [facility] [address] [place] [address], [place] [phone] * (ABNORMAL) Hemoglobin A1c (11/16/2024 9:09 AM EDT) Pathologist [facility] Hemoglobin A1C 6.8(H) <6.5 % LAB CHEMISTRY METHOD 11/16/2024 11:10 PM EDT [facility] Mean Bld Glu Estim. 148 mg/dL LAB CHEMISTRY METHOD 11/16/2024 11:10 PM EDT [facility] Blood Venous blood specimen / Unknown Venipuncture / Unknown 11/16/2024 9:09 AM EDT 11/16/2024 9:09 AM EDT Mike ORTIZ LAB BLOOD ORDERABLES Final Re sult Performing Organization Address City/[facility]/ZIP Co de Phone Number [facility] [address] [place] [address], [place] [phone] * Hm Diabetes Eye Exam (09/10/2023) [facility] Diabetes: Annual Retina Eye Exam abstracted Historical Provider MD HEALTH MAINTENANCE Final Result * SCREENING MAMMOGRAPHY BI 2-VIEW [...] in conjunction with computer aided detection. Tomosynthesis as well as 2D C-View imaging were obtained. Best possible images according to the technologist notes. Comparison: July 07, 2020 and November 19, 2018. Breast composition: There are scattered areas of fibroglandular density. Bilateral breasts: No significant masses, suspicious calcifications or other abnormalities are seen in either breast. IMPRESSION: Impression: Bilateral breasts: Negative, no specific mammographic evidence of malignancy. Normal interval follow-up is recommended in 12 [...] Resul t * Diabetes Foot Exam (04/04/2023) [facility] Diabetes: Annual Foot Exam abstracted [facility] Provider HEALTH MAINTENANCE Final Result * Depression Screening (02/20/2023) [facility] Depression Screening abstracted [facility] Provider HEALTH MAINTENANCE Final Result * Colonoscopy (07/26/2022) [facility] Colonoscopy abstracted, no interpretation Anatomical Region Laterality Modality Other Result [facility] Provider HEALTH MAINTENANCE Final Result * Hepatitis C Screening (01/10/2021) [facility] Hepatitis C Screening abstracted us Historical Provider HEALTH MAINTENANCE Final Result * Pap smear (10/15/2018) 10/15/2018 Narrative HISTORICAL TESTING LAB RESULTING AGENCY - 10/20/2018 11:56 AM EDT [id number] THINPREP PAP, IMAGED: NEGATIVE FOR SQUAMOUS INTRAEPITHELIAL LESION AND MALIGNANCY . ANDREW COBOS(ASCP) (CASE ELECTRONICALLY SIGNED 10 20 2018) RESULT OF APTIMA HIGH RISK HPV ASSAY: HIGH RISK HPV: NEGATIVE (SEROTYPES 16,18,31,33,35,39,45,51,52,56,58,59,66,68) COMPLETED ON 2018-10-17 ADEQUACY: SATISFACTORY ENDOCERVICAL/TRANSFORMATION ZONE COMPONENT PRESENT. SOURCE: THINPREP PAP HPV ANY DX: REFLEX 16 AND 18, CERVICAL, IMAGED CLINICAL INFORMATION: HPV ANY DIAGNOSIS. Z12.4, Z01.419, MENOPAUSE PAP HX Flynn Aguilar CNM LAB CYTOLOGY ORDERABLES Final Result HISTORICAL TESTING LAB RESULTING AGENCY from Last 3 Months or Most Recently Relevant to Health Maintenance Insurance [facility] Care Teams Hacksaw Inspector Relationship Specialty Start Date End Date Kareen Caldwell MD [address] [place] [address] PCP - General Internal Medicine 03/24/24
--- OUTSIDE RECORDS SUMMARY | 2025-03-02 13:37 | XMS_ITS | Encounter Summary ---
Author Organization [facility] Address [address] [place] [address] Care Team Providers Care Clinical Microbiologist Name Role Phone Clarisse Downey APRN Primary Care Provider [phone] Stephanie Mcmanus Primary Care Provider [phone] Homar Nixon MD Primary Care Provider [phone] Telma Foster APRN Primary Care Provider [phone] Pcp, No Primary Care Provider Clarisse Parker APRN Primary Care Provider + [phone] Encounter Details Date Type Department Care Team (Late st Contact Info) Description 03/17/2016 Scanned Document [address] [address] Provider, Generic Social History Tobacco [...] on filedocumented in this encounter Care Teams Clinical Microbiologist Relationship Specialty Start Date End Date Clarisse Downey APRN PCP - General 02/23/16 04/02/16 Stephanie Mcmanus PA PCP - General Internal Medicine 04/03/16 06/23/17 Homar Nixon MD PCP - General Internal Medicine 06/24/17 08/13/17 Telma Foster APRN [address] [address] PCP - General Family Medicine 08/14/17 12/21/18 Pcp, No PCP - General General Medicine 12/22/18 03/19/22 Clarisse Downey APRN [address] [place] [address] PCP - General 03/20/22 06/18/22 documented as of this encounter
--- OUTSIDE RECORDS SUMMARY | 2025-03-02 13:37 | XMS_ITS | Encounter Summary ---
Author Organization [facility] Address [address] [place] [address] Care Team Providers Care Warehouser Name Role Phone Telma Foster APRN Primary Care Provider [phone] Pcp, No Primary Care Provider Clarisse Parker APRN Primary Care Provider [phone] Encounter Details Date Type Department Care Team (Late st Contact Info) Description 03/26/2018 Scanned Document [address] [place] [address] Provider, Generic Social History Tobacco [...] on filedocumented in this encounter Care Teams Warehouser Relationship Specialty Start Date End Date Telma Foster APRN [address] [place], [place] [address] PCP - General Family Medicine 08/14/17 12/21/18 Pcp, No PCP - General General Medicine 12/22/18 03/19/22 Clarisse Downey APRN [address] [place] [address] [place] [address] PCP - General 03/20/22 06/18/22 documented as of this encounter
--- OUTSIDE RECORDS SUMMARY | 2025-03-02 13:37 | XMS_ITS | Encounter Summary ---
Author Organization [facility] Address [address] [place] [address] Care Team Providers Care Police Captain Name Role Phone Telma Foster APRN Primary Care Provider [phone] Pcp, No Primary Care Provider Clarisse Parker APRN Primary Care Provider [phone] Encounter Details Date Type Department Care Team (Late st Contact Info) Description 02/20/2018 Scanned Document [address] [place] [address] Provider, Generic Social History Tobacco [...] on filedocumented in this encounter Care Teams Police Captain Relationship Specialty Start Date End Date Telma Foster APRN [address] [place], [place] [address] PCP - General Family Medicine 08/14/17 12/21/18 Pcp, No PCP - General General Medicine 12/22/18 03/19/22 Clarisse Downey APRN [address] [place] [address] [place] [address] PCP - General 03/20/22 06/18/22 documented as of this encounter
--- OUTSIDE RECORDS SUMMARY | 2025-03-02 13:37 | XMS_ITS | Encounter Summary ---
Author Organization [address] [address] Care Team Providers Care Marketing Support Coordinator Name Role Phone Stephanie Mcmanus Primary Care Provider + [phone] Homar Nixon MD Primary Care Provider [phone] Telma Foster APRN Primary Care Provider [phone] Pcp, No Primary Care Provider Clarisse Parker APRN Primary Care Provider + [phone] Encounter Details Date Type Department Care Team (Late st Contact Info) Description 04/06/2017 Scanned Document [address] [address] Provider, Generic Social History Tobacco [...] on filedocumented in this encounter Care Teams Marketing Support Coordinator Relationship Specialty Start Date End Date Stephanie Mcmanus PA PCP - General Internal Medicine 04/03/16 06/23/17 Homar Nixon MD PCP - General Internal Medicine 06/24/17 08/13/17 Telma Foster APRN 100 [facility] [address] [place] [address] PCP - General Family Medicine 08/14/17 12/21/18 Pcp, No PCP - General General Medicine 12/22/18 03/19/22 Clarisse Downey APRN [address] [address] PCP - General 03/20/22 06/18/22 documented as of this encounter
--- OUTSIDE RECORDS SUMMARY | 2025-03-02 13:37 | XMS_ITS | Clinical Summary ---
Author Organization [facility] Address [address] [place] [address] Care Team Providers Care Supervisor International Reservations Name Role Phone Unavailable Primary Care Provider [...] 62 09/02/2018 1:59 PM EDT Temperature 36.8 C (98.2 F) 09/02/2018 1:59 PM EDT Respiratory Rate 20 09/02/2018 1:59 PM EDT [...] Pneumococcal Vaccines 50+ (2 of 2 - PPSV23, PCV20, or PCV21) 08/31/2014 07/06/2014 DTaP/Tdap/Td Vaccines (2 - Td or Tdap) 04/29/2017 RSV Vaccine 50 years and old er and Patients (1 - Risk 50-74 years 1-dose series) 2018 Zoster (Shingles) Vaccine (1 of 2) 2018 Influenza Vaccine 10/09/2024 02/21/2016 COVID-19 Vaccine ( - season) 2024 Insurance [facility]
--- OUTSIDE RECORDS SUMMARY | 2025-03-02 13:37 | XMS_ITS | Clinical Summary ---
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 Molecular Analysis spoke with patient 06/2020 and discussed the options with her. Is not interested in going directly to surgery at this point. I told her it would be well to repeat the biopsy in the middle of July and will be done at [facility] where tissue can be saved for molecular analysis IF this is necessary Seen by Dr. Brian Lara at [facility] in 09/2020 for removal of thyroid nodule, as she has abnormal findings on FNA C. Last Assessment & Plan: Seen by Dr. Brian Lara at [facility] in 09/2020 for removal of thyroid nodule, as she has abnormal findings on FNA C. As per her, surgeon is booked for 3 months, most likely she might be scheduling him March 2019 she is closely following with him. Disorder of joint of spine 09/21/2019 0 12/05/2020 Obstructive sleep apnea 05/04/201911/10 Overview (12/05/2020): [facility] Polysomnogram: Date 04/28/2019; Wt 260#; [...] Overview (12/05/2020): Last Assessment & Plan: Reviewed lead consultant note, she is getting knee injections-her [...] Hemoglobin A1C 12/23/2021 09/22/2021, 10/10 Influenza Vaccine (#1) 2024 12/27/2020 Pneumococcal Vaccine: Peds ( 0 to 5 Years) and At-Risk Patients (6 to 49 Years) Discontinued 07/06/2014 Insurance Medicaid Medicaid Care Teams Type Rolling Machine Operator Relationship Specialty Start Date End Date Criselda Sosa APRN PCP - General Hematology and Oncology 12/04/22
--- OUTSIDE RECORDS SUMMARY | 2025-03-02 13:37 | XMS_ITS | Encounter Summary ---
Author Organization [facility] Address [address] [place] [address] Care Team Providers Care Digital Director Name Role Phone Kareen Caldwell MD Primary Care Provider Encounter Details Date Type Department Care Team (Late st Contact Info) Description 01/05/2025 Results Follow-Up [facility] [address] [place] [address] Micki Beaulieu NP [address] [place] [address] [address] [place] [address] Social History Tobacco Use Types [...] for your loved ones. For example, child neurologist or elderly care for an older adult? [...] PM EST Office Visit Adult Medicine - [place] [address] [place] [address] Mike Talbert PA [address] [place] [address] 03/31/2025 10:10 AM EST Office Visit [facility] - [address] [facility] [address] [place] [address] Ally Brand PA [address] [place] [address] [place] [phone] documented as of this encounter Results * (ABNORMAL) Basic metabolic panel (02/26/2025 4:47 PM EST) Sodium 140 133 - 145 mmol/L 02/26/2025 5:59 PM [facility] Potassium 3.7 3.5 - 5.5 mmol/L 02/26/2025 5:59 PM [facility] Chloride 102 96 - 110 mmol/L 02/26/2025 5:59 PM [facility] CO2 30 21 - 32 mmol/L 02/26/2025 5:59 PM [facility] Anion Gap 8 3 - 11 02/26/2025 5:59 PM [facility] Glucose 110(H) 70 - 100 mg/dL 02/26/2025 5:59 PM [facility] BUN 12 5 - 25 mg/dL 02/26/2025 5:59 PM [facility] Creatinine 1.08 0.50 - 1.10 mg/dL 02/26/2025 5:59 PM [facility] eGFR 60 >=60 mL/min/1. 73m2 02/26/2025 5:59 PM [facility] Comment:Calculation based on the Chronic Kidney Disease Epidemiology Collaboration (CKD-EPI) equation refit without adjustment for race. BUN/Creatinine Ratio 11.1 02/26/2025 5:59 PM [facility] Calcium 9.8 8.5 - 10.5 mg/dL 02/26/2025 5:59 PM EST [facility] Blood Venous blood specimen / Unknown Venipuncture / Unknown 02/26/2025 4:47 PM EST 02/26/2025 4:47 PM EST us Micki Beaulieu METEOROLOGICAL AIDE LAB BLOOD ORDERABLES Final Res ult [facility] [address] [place] [address], documented in this encounter Visit Diagnoses Diagnosis Hypokalemia- Primary Hypopotassemia documented in this encounter Additional Health Concerns Assessment Noted Time PHQ-9 Depression Total Score: 6 06/16/19 25 12:18 PM EDT documented as of this encounter Care Teams Digital Director Relationship Specialty Start Date End Date Kareen Caldwell MD [address] [place] [address] PCP - General Internal Medicine 03/24/24 documented as of this encounter
--- OUTSIDE RECORDS SUMMARY | 2025-03-02 13:37 | XMS_ITS | Encounter Summary ---
Author Organization [facility] Address [address] [place] [address] Care Team Providers Care Buckle Sorter Name Role Phone Homar Nixon MD Primary Care Provider [phone] Telma Foster APRN Primary Care Provider [phone] Pcp, No Primary Care Provider Clarisse Parker APRN Primary Care Provider + [phone] Encounter Details Date Type Department Care Team (Late st Contact Info) Description 07/19/2017 Scanned Document [address] [place] [address] Provider, Generic Social History Tobacco [...] on filedocumented in this encounter Care Teams Buckle Sorter Relationship Specialty Start Date End Date Homar Nixon MD PCP - General Internal Medicine 06/24/17 08/13/17 Telma Foster APRN [address] [place] [address] PCP - General Family Medicine 08/14/17 12/21/18 Pcp, No PCP - General General Medicine 12/22/18 03/19/22 Clarisse Downey APRN [address] [place] [address] PCP - General 03/20/22 06/18/22 documented as of this encounter
--- OUTSIDE RECORDS SUMMARY | 2025-03-02 13:37 | XMS_ITS | Encounter Summary ---
Author Organization [address] [address] Care Team Providers Care Tank Insulator Rubber Name Role Phone Stephanie Mcmanus Primary Care Provider + [phone] Homar Nixon MD Primary Care Provider [phone] Telma Foster APRN Primary Care Provider [phone] Pcp, No Primary Care Provider Clarisse Parker APRN Primary Care Provider + [phone] Encounter Details Date Type Department Care Team (Late st Contact Info) Description 04/15/2017 Scanned Document [address] [address] Provider, Generic Social History Tobacco [...] on filedocumented in this encounter Care Teams Tank Insulator Rubber Relationship Specialty Start Date End Date Stephanie Mcmanus PA PCP - General Internal Medicine 04/03/16 06/23/17 Homar Nixon MD PCP - General Internal Medicine 06/24/17 08/13/17 Telma Foster APRN [address] [facility] [address] [place] [address] PCP - General Family Medicine 08/14/17 12/21/18 Pcp, No PCP - General General Medicine 12/22/18 03/19/22 Clarisse Downey APRN [address] [address] PCP - General 03/20/22 06/18/22 documented as of this encounter
== END 2025-03-02 12:55 | disposition home or self-care (01) ==
LOC: HO.HKAS 12:35
PROVIDERS: PCP Family Medicine; Visit Provider Internal Medicine Nephrology
DX: I10 Essential (primary) hypertension (principal)
CPT/HCPCS: 99214

== ENCOUNTER → 2025-03-02 12:35 | Outpatient (BNVA) | payer OTHER, SELFPAY | PROVIDERS: PCP Family Medicine; Visit Provider Internal Medicine Nephrology | DX: I10 Essential (primary) hypertension (principal); I48.91 Unspecified atrial fibrillation; Z87.891 Personal history of nicotine dependence; Z79.01 Long term (current) use of anticoagulants | CPT/HCPCS: 99212 ==